=== PATIENT | male | born 1945 | race Caucasian/White ===

== ENCOUNTER → 2023-07-15 08:25 | Outpatient (REF) | payer OTHER, SELFPAY ==
[2023-07-15 10:11] LABS: % Basophils 0.7 % (0-2); % Eosinophils 2.7 % (0-6); % Immature Granulocytes 0.2 % (0-0.5); % Lymphocytes 13.7 % (20.5-51.1); % Monocytes 9.8 % (1.7-9.3); % Neutrophils 72.9 % (42.2-75.2); Absolute Eosinophils 0.2 10^3/uL (0-0.7); Absolute Lymphocytes 0.8 10^3/uL (1.2-3.4); Absolute Monocytes 0.6 10^3/uL (0.1-0.6); Absolute Neutrophils 4.3 10^3/uL (1.4-6.5); Hemoglobin 13.5 g/dL (13.0-18.0); Mean Corp Hgb Conc. 33.8 g/dL (33.0-37.0); Mean Corpuscular Hgb 31.8 pg (27.0-31.0); Mean Corpuscular Volume 94.1 fL (80.0-94.0); Mean Platelet Volume 10.2 fL (7.4-10.4); Nucleated Red Blood Cells % 0 % (-); Platelet Count 213 10^3/uL (130-400); Red Blood Cell Count 4.25 10^6/uL (4.70-6.10); Red Cell Dist. Width 14.5 % (11.5-14.5); White Blood Cell Count 5.9 10^3/uL (4.8-10.8)
[2023-07-15 10:31] LABS: ALT (SGPT) 20 U/L (0-50); AST (SGOT) 26 U/L (17-59); Albumin 3.7 g/dl (3.5-5.0); Alkaline Phosphatase 79 U/L (38-126); Blood Urea Nitrogen 38 mg/dl (9-20); Calcium 9.4 mg/dl (8.4-10.2); Carbon Dioxide 27 mmol/L (22-30); Chloride 106 mmol/L (98-107); Glucose 110 mg/dl (70-99); HDL Cholesterol 43 mg/dl; LDL Cholesterol, Calculated 52 mg/dl; Potassium 4.5 mmol/L (3.5-5.1); Sodium 138 mmol/L (135-145); Total Bilirubin 0.7 mg/dl (0.2-1.3); Total Cholesterol 110 mg/dl (50-199); Total Protein 5.9 g/dl (6.3-8.2); Triglyceride 77 mg/dl (10-149); Very Low Density Lipoprotein 15 mg/dl (0-30); eGFR 47.36
[2023-07-15 10:36] LABS: Vitamin D, 25-OH*** 71.1 ng/mL (30-80)
[2023-07-15 12:46] LABS: Urine Albumin Trace (Neg - Trace); Urine Bilirubin Negative (Negative); Urine Character Clear (Clear); Urine Color Yellow; Urine Glucose 3+ (Negative); Urine Ketone Negative (Negative); Urine Leukocyte Negative (Negative); Urine Nitrite Negative (Negative); Urine Occult Blood Negative (Negative); Urine Urobilinogen Negative (Neg - 1+)
[2023-07-15 13:42] LABS: Microalbumin, Random Urine 15.7 mg/dl (0.6-1.7); Microalbumin/creatinine Ratio 212.4 mg/g
[2023-07-15 13:58] LABS: Glycohemoglobin (HgbA1c) 6.7 % (4.0-5.6)
== END ==
LOC: OLABPV 08:25
PROVIDERS: ATTENDING PHYSICIAN Internal Medicine Endocrinology, Diabetes & Metabolism; FAMILY PHYSICIAN Internal Medicine Geriatric Medicine
DX: E11.9 Type 2 diabetes mellitus without complications (principal); I10 Essential (primary) hypertension; E78.5 Hyperlipidemia, unspecified; M25.551 Pain in right hip; E55.9 Vitamin D deficiency, unspecified; I48.0 Paroxysmal atrial fibrillation; G47.33 Obstructive sleep apnea (adult) (pediatric); Q24.5 Malformation of coronary vessels; I25.10 Atherosclerotic heart disease of native coronary artery without angina pectoris; N52.9 Male erectile dysfunction, unspecified; C61 Malignant neoplasm of prostate; Z13.89 Encounter for screening for other disorder; E04.1 Nontoxic single thyroid nodule; E11.40 Type 2 diabetes mellitus with diabetic neuropathy, unspecified
CPT/HCPCS: 36415; 80053; 80061; 81003; 82043; 82306; 82570; 83036; 85025

== ENCOUNTER 2023-11-20 16:40 | Observation (INO) | payer OTHER, SELFPAY ==
[2023-11-20] VITALS (9 sets, daily range): BP systolic 103–156; BP diastolic 69–95; BMI 23.5; BMI 22.4
[2023-11-20 13:38] LABS: % Basophils 0.5 % (0-2); % Eosinophils 2.4 % (0-6); % Immature Granulocytes 0.4 % (0-0.5); % Monocytes 8.1 % (1.7-9.3); % Neutrophils 77.6 % (42.2-75.2); Absolute Eosinophils 0.1 10^3/uL (0-0.7); Absolute Lymphocytes 0.6 10^3/uL (1.2-3.4); Absolute Monocytes 0.5 10^3/uL (0.1-0.6); Absolute Neutrophils 4.3 10^3/uL (1.4-6.5); Hemoglobin 11.9 g/dL (13.0-18.0); Mean Corpuscular Hgb 32.2 pg (27.0-31.0); Mean Corpuscular Volume 94.6 fL (80.0-94.0); Mean Platelet Volume 10.3 fL (7.4-10.4); Nucleated Red Blood Cells % 0 % (-); Platelet Count 238 10^3/uL (130-400); Red Cell Dist. Width 14.3 % (11.5-14.5); White Blood Cell Count 5.5 10^3/uL (4.8-10.8)
[2023-11-20] MEDS: DILAUDID 0.5 MG IV (13:44)
[2023-11-20 13:52] LABS: ALT (SGPT) 19 U/L (0-50); AST (SGOT) 25 U/L (17-59); Alkaline Phosphatase 95 U/L (38-126); Blood Urea Nitrogen 32 mg/dl (9-20); Calcium 9.2 mg/dl (8.4-10.2); Carbon Dioxide 27 mmol/L (22-30); Chloride 102 mmol/L (98-107); Estimated Creatinine Clearance 50 ml/min; Glucose 130 mg/dl (70-99); Potassium 4.3 mmol/L (3.5-5.1); Sodium 139 mmol/L (135-145); Total Bilirubin 1.5 mg/dl (0.2-1.3); Total Protein 6.1 g/dl (6.3-8.2); eGFR > 60.00
--- NOTE | 2023-11-20 15:06 | ED.GENMED ---
History of Present Illness
General
Chief Complaint: Musculo-Skeletal Complaint
Time Seen by Provider: 11/20/23 12:17
History of Present Illness
History of Present Illness:
78-year-old male with history of A-fib on Eliquis presents to the emergency department for evaluation of worsening left hip and gluteal pain beginning 1 week ago, states that while walking his dog he was forcefully twisted and felt a sudden pain in
the left hip. He has been able to walk up until the past 48 hours, pain abruptly worsened today. Denies any shortening or deformity of the leg. No abdominal or back pain.
Past History
Past History
ED Past Medical History: Asthma (Bronchitis), HTN, Hypercholesterolemia and NIDDM (last A1c=6.1, FS BSs at home have not been elevated)
ED Past Surgical History: Cholecystectomy and Other
Social History
Tobacco: Former smoker
Alcohol: Occasional
Drug: None
Personal:
Living: with family
Review of Systems
Review of Systems
Allergies reviewed?: Yes
All Other Systems: ROS reviewed and negative except as documented in HPI and ROS
Phy Exam
Physical Exam
Physical Exam:
GEN: Well appearing, NAD, WDWN
HEENT: Oral mucosa moist, no scleral icterus
Cardiac: Regular rate
Lung: No respiratory distress, no tachypnea
MSK: Severe swelling of the left hip extending to the thigh as well as the gluteal region with faint ecchymosis, no obvious bony deformity, no shortening or external rotation
Skin: Good color, no pallor or jaundice, no rashes
Neuro: AO x3, moves all extremities freely
Psych: Calm, cooperative
Course
Orders/Labs/Results
Orders:
Orders
11/20/23 11:55
CR Hip - LT w/wo Pel 2-3 Vw* Urgent
Comment:
Reason For Exam: pain/ deformity
Include a pelvis x-ray?: Yes
11/20/23 12:52
CT Pelvis W/o Iv Contrast Urgent
Comment:
Reason For Exam: non traumatic hip pain
11/20/23 13:31
Complete Blood Count/With Diff Urgent
Comprehensive Metabolic Panel Urgent
11/20/23 13:35
HYDROmorphone [Dilaudid] 0.5 mg IV NOW STA
Abnormal Lab Results
11/20/23
13:31
RBC 3.70 L 10^6/uL
(4.70-6.10)
Hgb 11.9 L g/dL
(13.0-18.0)
Hct 35.0 L %
(39.0-52.0)
MCV 94.6 H fL
(80.0-94.0)
MCH 32.2 H pg
(27.0-31.0)
Absolute Lymphs (auto) 0.6 L 10^3/uL
(1.2-3.4)
Neutrophils % 77.6 H %
(42.2-75.2)
Lymphocytes % 11.0 L %
(20.5-51.1)
BUN 32 H mg/dl
(9-20)
Glucose 130 H mg/dl
(70-99)
Total Bilirubin 1.5 H mg/dl
(0.2-1.3)
Total Protein 6.1 L g/dl
(6.3-8.2)
11/20/23 13:31
11/20/23 13:31
Vital Signs
Initial and Last Documented VS:
Initial Vital Signs
Temp Pulse Resp BP Pulse Ox
97.7 F 75 15 152/95 97
11/20/23 11:49 11/20/23 11:49 11/20/23 11:49 11/20/23 11:49 11/20/23 11:49
Last Documented Vital Signs
Temp Pulse Resp BP Pulse Ox
97.7 F 84 11 125/70 94
11/20/23 11:49 11/20/23 12:32 11/20/23 12:32 11/20/23 14:05 11/20/23 14:45
MDM/Problems Addressed
MDM/Problems Addressed:
Large intramuscular hematoma likely from a soft tissue/muscular injury, patient does have a slight decline in his hemoglobin however have a low clinical suspicion for avascular injury given that the injury occurred 1 week ago his hemoglobin decline
was only about 2 g. Patient's pain is too severe and he is not able to ambulate, will admit to the hospital service for further management
I did discuss the incidental findings of mottling of the osseus structures with the patient. Remote hx of prostate CA, may represent mets however given time frame from prior CA treatments, not likely related. Could certainly be malignant. Pt made
aware that this will require further follow up, not necessarily on an inpatient basis
*Critical Care Note
Total Time (30-74mins, 75-104mins- exclusive of procedures): Not Applicable
ED Attending Note
-
Portions of this chart may have been created with voice recognition software.� Occasional wrong word or��sound alike� substitutions may have occurred due to the inherent limitations of voice recognition software.
Discharge Plan
Departure
Patient Disposition: Admit
Date of Disposition: 11/20/23
Time of Disposition: 15:10
Admit to: Med/Surg
Presentation/result/management discussed w/ accepting MD/DO: Hospitalist
Discharge Problem:
Intramuscular hematoma, Ambulatory dysfunction
Prescriptions:
No Action
pioglitazone 30 MG tablet
30 mg PO DAILY
cholecalciferol (vitamin D3) 1,000 UNITS tablet
1,000 units PO TID
Invokana 100 MG tablet
100 mg PO DAILY
magnesium oxide 400 MG tablet
400 mg PO DAILY
valsartan 80 MG tablet
160 mg PO BID
ferrous gluconate 240 MG tablet
324 mg PO TID
Januvia 100 MG tablet
100 mg PO QPM
Eliquis 5 MG tablet
5 mg PO BID
coQ10 (ubiquinol) 100 mg Capsule
100 mg PO DAILY Qty: 0
triamterene-hydrochlorothiazid 37.5-25 mg Tablet
1 tab PO DAILY
multivitamin Tablet
1 tab PO DAILY
atorvastatin 40 mg Tablet
40 mg PO HS
alpha lipoic acid 600 mg Tablet
600 mg PO DAILY
metformin 1,000 MG tablet
1,000 mg PO BID
amlodipine 5 mg Tablet
5 mg PO DAILY Qty: 90 5RF
metoprolol succinate [Toprol XL] 25 mg tablet extended release 24 hr
12.5 mg PO BID
cyanocobalamin (vitamin B-12) 1,000 mcg Tablet
1,000 mcg PO DAILY
Referrals:
Gerry Holman MD [Family Provider] -
Interventions
Interventions:
*Risk Screen - Suicide Last Done: 11/20/23 11:49
*General Assessment Last Done: 11/20/23 11:49
*Neglect/Abuse Screening Last Done: 11/20/23 11:49
ED- Fall Risk Assessment Last Done: 11/20/23 13:50
*ED COVID-19 Vaccine History Last Done: 11/20/23 11:49
ED-Musculoskeletal Assessment Last Done: 11/20/23 13:50
Discharge Date and Time
Print Language: GERMAN
--- NOTE | 2023-11-20 15:52 | HPS.HSE ---
Family Physician
-
Family Physician: Gerry Holman
Chief Complaint
-
inability to walk
History of Present Illness
78-year-old man with history of A-fib (on Eliquis) presents with worsening left hip and gluteal pain beginning 1 week ago. He was walking his dog and was forcefully twisted, and felt a sudden pain in the left hip. He has been able to walk up until
the past 2 days, and the pain abruptly worsened today. He Denies any shortening or deformity of the leg. No abdominal or back pain. No SOB. Distant h/o prostate CA. CT of leg showed:
1. No acute fracture or dislocation.
2. Large intramuscular hematoma in the left lateral hip and anterolateral upper left thigh. Recommend imaging follow-up to confirm resolution as an underlying mass would be difficult to exclude.
3. Mottled appearance of the imaged osseous structures raising suspicion for myeloma versus small lytic metastases.
He was told by ER staff and by myself of bone abnormality described above. He voiced understanding of this and stated he would follow up with his PCP. He was otherwise comfortable at the time of my exam.
Medical History
Past Medical History
Past Medical History: Reports Other
Additional Past Medical History:
Asthma (Bronchitis),
essential HTN,
Hypercholesterolemia
NIDDM (last A1c=6.1, FS BSs at home have not been elevated)
Cholecystectomy
malignant neoplasm of prostate
Left leg weakness
half-way (current) use of anticoagulants
Erectile dysfunction
Stress incontinence of urine
Coronary artery disease
Coronary-myocardial bridge
Paroxysmal atrial fibrillation
Vitamin D deficiency
Stage 1 chronic kidney disease
Unintentional weight loss
Thyroid nodule
Past Surgical History: Reports Other
Additional Past Surgical History:
See above
Social History
Tobacco: Former Smoker
Alcohol: None
Drug: None
Personal:
Living: With Family
Family History
Family History: Not pertinent
Allergies / Home Medications
Allergies reflects when Allergies were last updated in [facility].
Home Medications with original date entered in [facility]
Allergy/Medication List:
Allergies
Allergy/AdvReac Type Severity Reaction Status Date / Time
pollen extracts Allergy hayfever Verified 11/20/22 13:37
Home Medications
canagliflozin 100 mg tablet (Invokana) 100 mg PO DAILY 05/10/16
cholecalciferol (vitamin D3) 25 mcg (1,000 unit) tablet 1,000 units PO TID 05/10/16
pioglitazone 30 mg tablet 30 mg PO DAILY 05/10/16
magnesium oxide 400 mg (241.3 mg magnesium) tablet 400 mg PO DAILY 01/11/18
apixaban 5 mg tablet (Eliquis) 5 mg PO BID 11/22/19
ferrous gluconate 240 mg (27 mg iron) tablet 324 mg PO TID 11/22/19
sitagliptin phosphate 100 mg tablet (Januvia) 100 mg PO QPM 11/22/19
valsartan 80 mg tablet 160 mg PO BID 11/22/19
coQ10 (ubiquinol) 100 mg capsule 100 mg PO DAILY ##0 11/03/22
multivitamin 1 tab PO DAILY 11/10/22
triamterene 37.5 mg-hydrochlorothiazide 25 mg tablet 1 tab PO DAILY 11/10/22
alpha lipoic acid 600 mg tablet 600 mg PO DAILY 11/18/22
amlodipine 5 mg tablet 5 mg PO DAILY #90 tabs 11/18/22
atorvastatin 40 mg tablet 40 mg PO HS 11/18/22
metformin 1,000 mg tablet 1,000 mg PO BID 11/18/22
cyanocobalamin (vitamin B-12) 1,000 mcg tablet 1,000 mcg PO DAILY 11/20/23
metoprolol succinate 25 mg tablet,extended release 24 hr (Toprol XL) 12.5 mg PO BID 11/20/23
Review of Systems
-
History Source: Patient
A 12 point ROS was completed and negative except as noted: Yes
Physical Exam
Vital Signs
Vital Signs
Temp Pulse Resp BP Pulse Ox
97.7 F 84 11 125/70 94
11/20/23 11:49 11/20/23 12:32 11/20/23 12:32 11/20/23 14:05 11/20/23 14:45
Physical Exam
General: Well Developed, Well Nourished, No Apparent Distress, Comfortable and Conversant
HEENT: NormoCephalic, Moist mucous membranes, No Ptosis, Nose Appears Normal and Ears Appear Normal; No Good Dentition
Respiratory: Clear
Cardiac: S1/S2 and Regular Rhythm
GI: Soft, Non Tender and Non Distended
Musculoskeletal: No Clubbing, No Cyanosis, Edema, Left Lower Extremity and Edema, Right Lower Extremity
Skin: Warm and Dry
Neuro: Awake, Alert, Oriented and AO x 3
Psych: Calm
Laboratory Results
-
11/20/23 13:31
11/20/23 13:31
Laboratory Results
Total Bilirubin 1.5 mg/dl (0.2-1.3) H 11/20/23 13:31
AST 25 U/L (17-59) 11/20/23 13:31
ALT 19 U/L (0-50) 11/20/23 13:31
Alkaline Phosphatase 95 U/L (38-126) 11/20/23 13:31
Data Reviewed
-
Lab Data: Labs Reviewed by me
Impression/Plan
-
IMPRESSION:
78 man with hematoma on thigh, unable to walk, unable to do ADL. CT shows concerning imaging that could be cancer.
PLAN:
1. Hematoma on leg - needs outpatient follow up. At this time no signs of infection or vascular pressure affecting blood supply to leg.
Outpt ortho
H/H stable. Check H/H tomorrow
Rehab placement
2. Abnormal bone on CT, h/o cancer in the past, h/o unwanted weight loss
Important follow up for PCP
3. otherwise numerous PMH - continue usual home meds.
Renal function is at baseline
Code: full
VCD for DVTp
[2023-11-20 19:31] LABS: Glucose - Point of Care 123 mg/dl (70-99)
[2023-11-20] MEDS: JANUVIA 100 MG PO (19:51)
[2023-11-20] MEDS: DIOVAN 160 MG PO (19:51)
[2023-11-20] MEDS: GLUCOPHAGE 1000 MG PO (19:51)
[2023-11-20] MEDS: TOPROL XL 12.5 MG PO (19:52)
[2023-11-20] MEDS: LIPITOR 40 MG PO (21:44)
[2023-11-20] MEDS: VITAMIN D3 (cholecalciferol) 25 MCG PO (21:44)
[2023-11-20] MEDS: FEOSOL 325 MG PO (21:44)
[2023-11-21 07:35] VITALS: BP 127/71
[2023-11-21 08:25] LABS: Hematocrit 29.7 % (39.0-52.0); Hemoglobin 9.9 g/dL (13.0-18.0); Mean Corp Hgb Conc. 33.3 g/dL (33.0-37.0); Mean Corpuscular Hgb 31.9 pg (27.0-31.0); Mean Corpuscular Volume 95.8 fL (80.0-94.0); Mean Platelet Volume 10.2 fL (7.4-10.4); Platelet Count 230 10^3/uL (130-400); Red Cell Dist. Width 14.3 % (11.5-14.5); White Blood Cell Count 6.1 10^3/uL (4.8-10.8)
[2023-11-21] MEDS: JARDIANCE 10 MG PO (08:47)
[2023-11-21] MEDS: FEOSOL 325 MG PO ×3 (08:47→20:57)
[2023-11-21] MEDS: ACTOS 30 MG PO (08:48)
[2023-11-21] MEDS: TOPROL XL 12.5 MG PO ×2 (08:48→20:56)
[2023-11-21] MEDS: MAGNESIUM OXIDE 500 MG PO (08:48)
[2023-11-21] MEDS: THERAGRAN 1 TABLET PO (08:49)
[2023-11-21] MEDS: NORVASC 5 MG PO (08:49)
[2023-11-21] MEDS: VITAMIN D3 (cholecalciferol) 25 MCG PO ×3 (08:49→20:57)
[2023-11-21] MEDS: DYAZIDE 1 CAPSULE PO (08:49)
[2023-11-21] MEDS: DIOVAN 160 MG PO ×2 (08:50→20:56)
[2023-11-21] MEDS: FLUSH (NSS) 1 FLUSH IV (08:50)
[2023-11-21] MEDS: VITAMIN B-12 1000 MCG PO (08:50)
[2023-11-21] MEDS: GLUCOPHAGE 1000 MG PO ×2 (08:50→16:37)
[2023-11-21 08:52] LABS: Blood Urea Nitrogen 32 mg/dl (9-20); Calcium 9.1 mg/dl (8.4-10.2); Carbon Dioxide 27 mmol/L (22-30); Chloride 103 mmol/L (98-107); Estimated Creatinine Clearance 49 ml/min; Glucose 121 mg/dl (70-99); Potassium 4.1 mmol/L (3.5-5.1); Sodium 137 mmol/L (135-145); eGFR > 60.00
--- NOTE | 2023-11-21 10:10 | W.PN.HOSP.TC ---
Today's Communication/Plan
-
see plan
Assessment / Plan
Assessment / Plan
78-year-old man with history of A-fib (on Eliquis) presents with worsening left hip and gluteal pain beginning 1 week ago. He was walking his dog and was forcefully twisted, and felt a sudden pain in the left hip. He has been able to walk up until
the past 2 days, and the pain abruptly worsened today.
Hip X-Ray
IMPRESSION:
No acute fracture or dislocation.
Pelvis CT
IMPRESSION:
1. No acute fracture or dislocation.
2. Large intramuscular hematoma in the left lateral hip and anterolateral upper left thigh. Recommend imaging follow-up to confirm resolution as an underlying mass would be difficult to exclude.
3. Mottled appearance of the imaged osseous structures raising suspicion for myeloma versus small lytic metastases.
Left Thigh Intramuscular Hematoma
Acute blood Loss Anemia
-hold PIANO REFINISHER Eliquis
-improvement this AM
-scheduled neurovascular checks
-PT/OT
-will discuss case with ortho
Abnormal Imaging of bone raising suspicion for myeloma versus small lytic meta
-will discuss case with Oncology
Essential Hypertension
-PIANO REFINISHER amlodipine
-PIANO REFINISHER Metoprolol
-PIANO REFINISHER Triamterene/HCTZ
Hyperlipidemia
-PIANO REFINISHER Lipitor
GERD
Prostate CA 2006 s/p robotic prostatectomy
DM
-PIANO REFINISHER Invokana, Januvia, Metformin, Pioglitazone
Multinoduler goiter s/p partial thyroidectomy
Gout
Remote hx tobacco Use
DVT PPx SCD
FULL CODE
Anticipated Discharge: 24 - 48 hours
Subjective/Interval History
-
Date of Service: November 21, 2023
patient with improved pain left thigh and improved mobility
denies chest pain or shortness of breath
Objective Data
-
Labs:
Laboratory Results
11/21/23
07:36
WBC 6.1
Hgb 9.9 L
Hct 29.7 L
Plt Count 230
Sodium 137
Potassium 4.1
Chloride 103
Carbon Dioxide 27
BUN 32 H
Creatinine 1.2
Glucose 121 H
Calcium 9.1
Vital Signs:
Vital Signs
Temp Pulse Resp BP Pulse Ox
98.0 F 60 18 127/71 95
11/21/23 07:35 11/21/23 08:50 11/21/23 07:35 11/21/23 08:50 11/21/23 08:43
I&O
11/20/23 11/21/23 11/22/23
06:59 06:59 06:59
Intake Total 480 / 480
Output Total 200 / 200
Balance 280 / 280
Review of Systems
-
History Source: Patient
All other systems: Reviewed and negative
Physical Exam
-
General: No Apparent Distress
HEENT: PERRLA
Respiratory: Clear to Auscultation; Negative Wheezes
Cardiac: Regular Rhythm and S1/S2
GI: Soft and Nontender
Musculoskeletal: Other (left thigh edema, no significant tenderness; skin appears normal but swollen; DP/PT pulse 2+)
Neuro: AO x 3
Psych: Calm
Data Reviewed
-
Diagnostic Radiology: Report Reviewed by me
Labs: Labs Reviewed by me
[2023-11-21 11:47] LABS: Glucose - Point of Care 177 mg/dl (70-99)
[2023-11-21 13:08] LABS: PSA, Total - Screen < 0.06 ng/ml (0.0-4.0)
[2023-11-21 13:11] VITALS: BP 117/80; PULSE 66; O2SAT 98
[2023-11-21 14:10] VITALS: BP 117/80; O2SAT 99
[2023-11-21 15:26] VITALS: BP 115/69
--- NOTE | 2023-11-21 16:05 | PTCARENOTE ---
Pt AAO x3, HUBBARD well, ambulatory in room/jarvis with walker/minimal assistance; states Lt leg 'feels pretty good today'; no c/o weakness/numbness LLE. Circ/neuro check to LLE WNL; bruised areas Lt posterior thigh without increase in size. VSS. On
room air- pulse ox 92%, no c/o SOB. Abd soft, rounded, marino PO well. Voids mod amts clear lt dorita urine in urinal. Resting in bed at present, no c/o. Will continue to monitor.
[2023-11-21 16:09] LABS: Hemoglobin 10.6 g/dL (13.0-18.0)
--- NOTE | 2023-11-21 16:27 | PTCARENOTE ---
[facility] result @ 1530 - 10.9; result TT to Dr. Bernal.
[2023-11-21] MEDS: JANUVIA 100 MG PO (16:37)
[2023-11-21] MEDS: LIPITOR 40 MG PO (20:57)
[2023-11-21 23:15] VITALS: BP 113/64
[2023-11-22 07:02] VITALS: BP 124/74
[2023-11-22 07:22] LABS: Hematocrit 28.4 % (39.0-52.0); Hemoglobin 9.8 g/dL (13.0-18.0); Mean Corp Hgb Conc. 34.5 g/dL (33.0-37.0); Mean Corpuscular Hgb 33.1 pg (27.0-31.0); Mean Corpuscular Volume 95.9 fL (80.0-94.0); Mean Platelet Volume 9.9 fL (7.4-10.4); Platelet Count 211 10^3/uL (130-400); Red Blood Cell Count 2.96 10^6/uL (4.70-6.10); Red Cell Dist. Width 14.4 % (11.5-14.5); White Blood Cell Count 5.7 10^3/uL (4.8-10.8)
[2023-11-22 08:08] LABS: Blood Urea Nitrogen 31 mg/dl (9-20); Calcium 9.1 mg/dl (8.4-10.2); Carbon Dioxide 25 mmol/L (22-30); Chloride 105 mmol/L (98-107); Estimated Creatinine Clearance 45 ml/min; Glucose 121 mg/dl (70-99); Potassium 3.8 mmol/L (3.5-5.1); Sodium 137 mmol/L (135-145); eGFR 55.88
[2023-11-22] MEDS: DYAZIDE 1 CAPSULE PO (09:16)
[2023-11-22] MEDS: NORVASC 5 MG PO (09:16)
[2023-11-22] MEDS: TOPROL XL 12.5 MG PO (09:16)
[2023-11-22] MEDS: MAGNESIUM OXIDE 500 MG PO (09:16)
[2023-11-22] MEDS: DIOVAN 160 MG PO (09:16)
[2023-11-22] MEDS: VITAMIN D3 (cholecalciferol) 25 MCG PO (09:17)
[2023-11-22] MEDS: ACTOS 30 MG PO (09:17)
[2023-11-22] MEDS: GLUCOPHAGE 1000 MG PO (09:17)
[2023-11-22] MEDS: JARDIANCE 10 MG PO (09:17)
[2023-11-22] MEDS: VITAMIN B-12 1000 MCG PO (09:17)
[2023-11-22] MEDS: THERAGRAN 1 TABLET PO (09:17)
[2023-11-22] MEDS: FEOSOL 325 MG PO (09:17)
[2023-11-22] MEDS: TYLENOL 650 MG PO (09:28)
--- NOTE | 2023-11-22 11:11 | W.PN.HOSP.TC ---
Today's Communication/Plan
-
OK for DC today
Assessment / Plan
Assessment / Plan
78-year-old man with history of A-fib (on Eliquis) presents with worsening left hip and gluteal pain beginning 1 week ago. He was walking his dog and was forcefully twisted, and felt a sudden pain in the left hip. He has been able to walk up until
the past 2 days, and the pain abruptly worsened today.
Hip X-Ray
IMPRESSION:
No acute fracture or dislocation.
Pelvis CT
IMPRESSION:
1. No acute fracture or dislocation.
2. Large intramuscular hematoma in the left lateral hip and anterolateral upper left thigh. Recommend imaging follow-up to confirm resolution as an underlying mass would be difficult to exclude.
3. Mottled appearance of the imaged osseous structures raising suspicion for myeloma versus small lytic metastases.
Left Thigh Intramuscular Hematoma
Acute blood Loss Anemia
-scheduled neurovascular checks OK
-PT/OT
-case discussed with ortho, no need for surgical intervention
-Eliquis has been held - discussed with patients risks versus benefits regarding length of time holding this drug. given size of hematoma will likely to hold for at least 4 days - patient can resume evening of 11/24/23.
Abnormal Imaging of bone raising suspicion for myeloma versus small lytic mets
-case discussed with Oncology and PSA ordered (< 0.06) SPEP and free light chains pending
Essential Hypertension
-MIS SPECIALIST amlodipine
-MIS SPECIALIST Metoprolol
-MIS SPECIALIST Triamterene/HCTZ
Hyperlipidemia
-MIS SPECIALIST Lipitor
GERD
Prostate CA 2006 s/p robotic prostatectomy
DM
-MIS SPECIALIST Invokana, Januvia, Metformin, Pioglitazone
Multinoduler goiter s/p partial thyroidectomy
Gout
Remote hx tobacco Use
DVT PPx SCD
FULL CODE
Anticipated Discharge: Today
Subjective/Interval History
-
Date of Service: November 22, 2023
continues with some soreness left thigh; able to move it
feels ready to go home
no chest pain or shortness of breath
Objective Data
-
Labs:
Laboratory Results
11/22/23
06:58
WBC 5.7
Hgb 9.8 L
Hct 28.4 L
Plt Count 211
Sodium 137
Potassium 3.8
Chloride 105
Carbon Dioxide 25
BUN 31 H
Creatinine 1.3
Glucose 121 H
Calcium 9.1
Vital Signs:
Vital Signs
Temp Pulse Resp BP Pulse Ox
98 F 52 18 124/74 95
11/22/23 07:02 11/22/23 07:02 11/22/23 07:02 11/22/23 07:02 11/22/23 07:02
I&O
11/21/23 11/22/23 11/23/23
06:59 06:59 06:59
Intake Total 480 / 480 1160 / 1160
Output Total 200 / 200 1250 / 1250
Balance 280 / 280 -90 / -90
Review of Systems
-
History Source: Patient
All other systems: Reviewed and negative
Physical Exam
-
General: No Apparent Distress
HEENT: PERRLA
Respiratory: Clear to Auscultation; Negative Wheezes
Cardiac: Regular Rhythm and S1/S2
GI: Soft and Nontender
Musculoskeletal: Other (left thigh edema, no significant tenderness; skin appears normal but swollen; DP/PT pulse 2+)
Neuro: AO x 3
Psych: Calm
Data Reviewed
-
Diagnostic Radiology: Report Reviewed by me
Labs: Labs Reviewed by me
--- NOTE | 2023-11-22 11:33 | W.DS.TRANS ---
DC Summary - [employer]
-
Discharge Instructions:
Discharge Diagnosis/Procedures left thigh hematoma
Diet Regular
Activity As tolerated
Driving Restrictions do not drive after taking [place]
Bathing Restrictions None
Blood Work Hemoglobin on Monday 11/27
Other Services VN,PT
Instructions:
Stand-Alone Forms:
Changes to Home Medications: Yes
Discharge Medications:
DC Medications w/original date entered in [facility]
canagliflozin 100 mg tablet (Invokana) 100 mg PO DAILY 05/10/16
cholecalciferol (vitamin D3) 25 mcg (1,000 unit) tablet 1,000 units PO TID Supplement 05/10/16
pioglitazone 30 mg tablet 30 mg PO DAILY Diabetes 05/10/16
magnesium oxide 400 mg (241.3 mg magnesium) tablet 400 mg PO DAILY Constipation 01/11/18
apixaban 5 mg tablet (Eliquis) 5 mg PO BID Blood Clot Prevention/Tx 11/22/19
ferrous gluconate 240 mg (27 mg iron) tablet 324 mg PO TID Supplement 11/22/19
sitagliptin phosphate 100 mg tablet (Januvia) 100 mg PO QPM Diabetes 11/22/19
valsartan 80 mg tablet 160 mg PO BID Blood Pressure 11/22/19
coQ10 (ubiquinol) 100 mg capsule 100 mg PO DAILY Supplement ##0 11/03/22
multivitamin 1 tab PO DAILY Supplement 11/10/22
triamterene 37.5 mg-hydrochlorothiazide 25 mg tablet 1 tab PO DAILY Blood Pressure 11/10/22
alpha lipoic acid 600 mg tablet 600 mg PO DAILY Supplement 11/18/22
amlodipine 5 mg tablet 5 mg PO DAILY #90 tabs 11/18/22
atorvastatin 40 mg tablet 40 mg PO HS High Cholesterol 11/18/22
metformin 1,000 mg tablet 1,000 mg PO BID Diabetes 11/18/22
cyanocobalamin (vitamin B-12) 1,000 mcg tablet 1,000 mcg PO DAILY Supplement 11/20/23
metoprolol succinate 25 mg tablet,extended release 24 hr (Toprol XL) 12.5 mg PO BID Heart Disease/Condition 11/20/23
hydrocodone 5 mg-acetaminophen 325 mg tablet 1 tab PO Q8H PRN severe pain #10 tabs 11/22/23
Home Medication Changes
addition of norco PRN
Pending Results: Yes (SPEP free light chains)
--- NOTE | 2023-11-22 14:44 | W.DCSUMMARY ---
Discharge Summary
Discharge Data
Date of Admission: 11/20/23
Date of Discharge: 11/22/23
-
Pending Results: Yes
Additional Pending Results:
SPEP, free light chains
Hospital Course
Discharging Physician : Dr. Esha Bernal
Disposition : Home
Primary care physician : Dr. Gerry Holman
Principal Discharge diagnosis : Left thigh hematoma
Hospital Course :
Mr. Edmundo Mac is a 78 yo man with hx A-fib (on Eliquis) presents with worsening left hip and gluteal pain beginning 1 week ago. He was walking his dog and was forcefully twisted, and felt a sudden pain in the left hip. He had been able to
walk up until the past 2 days, and the pain then abruptly worsened bringing him to the ER. Triage vitals stable. Labs with Hg 11.9. Pelvis CT without acute fracture, large IM hematoma.
Patient was admitted to medicine, ACTUARY MANAGER Eliquis held. His pain and range of motion improved overnight and Hg remained stable between 9-10. He worked with PT and home health is arranged. Patient is told to hold Eliquis for an additional 2 days to
allow for continued healing of hematoma. He will follow up closely with his PCP.
Regarding, abnl bone appearance on CT, this was discussed briefly with Hematology. While in-house PSA tested (<0.06), and SPEP and light chains sent (pending at time of discharge). Patient aware of potential diagnoses and need to have close
outpatient follow up.
Time spent on discharge was 40 minutes.
Important imaging findings :
CT PELVIS
IMPRESSION:
1. No acute fracture or dislocation.
2. Large intramuscular hematoma in the left lateral hip and anterolateral upper left thigh. Recommend imaging follow-up to confirm resolution as an underlying mass would be difficult to exclude.
3. Mottled appearance of the imaged osseous structures raising suspicion for myeloma versus small lytic metastases.
Procedure findings :
Discharge Plan
-
Patient Disposition: Home (Routine Discharge)
Discharge Diagnosis/Procedures: left thigh hematoma
Diet: Regular
Activity: As tolerated
Driving Restrictions: do not drive after taking [place]
Bathing Restrictions: None
Blood Work: Hemoglobin on Monday 11/27
Other Services: VN and PT
Activity Restrictions/Additional Instructions:
Please follow up with Dr. Holman within the next week. You will need to discuss further work-up for abnormal imaging of bone. Work-up has been started in the hospital including PSA testing (< 0.06). SPEP and Free Light chain studies are pending
(these are ordered to rule out a type of blood cancer).
Referrals:
Gerry Holman MD [Family Provider] - in less than 1 week
Additional Discharge Medication Instructions: Please hold Eliquis an additional 2 days. Ok to resume evening of 11/24/23.
Return to ER if any increased swelling or pain in thigh.
continue to ice thigh to help with swelling and pain
Prescriptions:
New
hydrocodone-acetaminophen 5-325 mg tablet
1 tab PO Q8H PRN (Reason: severe pain) Qty: 10 0RF
Continued
pioglitazone 30 MG tablet
30 mg PO DAILY
cholecalciferol (vitamin D3) 1,000 UNITS tablet
1,000 units PO TID
Invokana 100 MG tablet
100 mg PO DAILY
magnesium oxide 400 MG tablet
400 mg PO DAILY
valsartan 80 MG tablet
160 mg PO BID
ferrous gluconate 240 MG tablet
324 mg PO TID
Januvia 100 MG tablet
100 mg PO QPM
coQ10 (ubiquinol) 100 mg Capsule
100 mg PO DAILY Qty: 0
triamterene-hydrochlorothiazid 37.5-25 mg Tablet
1 tab PO DAILY
multivitamin Tablet
1 tab PO DAILY
atorvastatin 40 mg Tablet
40 mg PO HS
alpha lipoic acid 600 mg Tablet
600 mg PO DAILY
metformin 1,000 MG tablet
1,000 mg PO BID
amlodipine 5 mg Tablet
5 mg PO DAILY Qty: 90 5RF
metoprolol succinate [Toprol XL] 25 mg tablet extended release 24 hr
12.5 mg PO BID
cyanocobalamin (vitamin B-12) 1,000 mcg Tablet
1,000 mcg PO DAILY
Held
Eliquis 5 MG tablet
5 mg PO BID
Hold Instructions: Resume on 11/24/23.
Discharge Orders:
Discharge Patient (As Directed); Ordered 11/22/23
Ordered By: Esha Bernal
Discharge Date and Time
Print Language: UKRAINIAN
[2023-11-22 15:16] VITALS: BP 111/72
--- NOTE | 2023-11-22 15:35 | CM ---
Reviewed chart, spoke with RN, patient is medically cleared for discharge. Met with patient who stated that he did not have a ride home to the [facility]. Placed a call to [facility] and upon explanation that patient needs ride back to home,
call was transferred to transportation. Spoke with a inbound customer service representative named, Rito who stated that he can have someone pick patient up at 16:00. Patient updated. RN updated as well as [employer] dip unit operator. Patient had consult for VN. Updated liason.
Plan: Case management will continue to follow and assist with discharge planning. Home.
--- NOTE | 2023-11-22 16:05 | VNURNOTE ---
Chart reviewed, spoke with patient. I reviewed [facility] services, frequency of visits and homebound status. Patient has a dog and cat, pet policy reviewed. The patient is mostly interested in PT. He is agreeable to 1 or 2 home nursing visits.
Referral placed in [facility].
[2023-11-25 05:41] LABS: Alpha 1 Globulin 0.37 g/dL (0.19-0.46); Alpha 2 Globulin 0.68 g/dL (0.48-1.05); Free Kappa Light Chains,Quant 30.91 mg/L (3.30-19.40); IgA 233 mg/dL (68-408); IgG 512 mg/dL (768-1632); IgM 22 mg/dL (35-263); Immunofixation Electrophoresis IFE Done; Kappa/Lambda Fr Light Ratio 0.93 (0.26-1.65); Total Protein-Electrophoresis 5.9 g/dL (6.3-8.2)
== END 2023-11-22 16:17 | disposition home or self-care (01) ==
LOC: 4 EAST ACU 16:40
PROVIDERS: Physician Assistant; ADMITTING PHYSICIAN Internal Medicine; ATTENDING PHYSICIAN Student in an Organized Health Care Education/Training Program; EMERGENCY PHYSICIAN Emergency Medicine; FAMILY PHYSICIAN Internal Medicine Geriatric Medicine
DX: S70.12XA Contusion of left thigh, initial encounter (principal); S70.02XA Contusion of left hip, initial encounter; M25.552 Pain in left hip; X50.0XXA Overexertion from strenuous movement or load, initial encounter; Y93.K1 Activity, walking an animal; Y92.9 Unspecified place or not applicable; R26.2 Difficulty in walking, not elsewhere classified; E04.1 Nontoxic single thyroid nodule; E55.9 Vitamin D deficiency, unspecified; N39.3 Stress incontinence (female) (male); D62 Acute posthemorrhagic anemia; I25.10 Atherosclerotic heart disease of native coronary artery without angina pectoris; I48.0 Paroxysmal atrial fibrillation; I12.9 Hypertensive chronic kidney disease with stage 1 through stage 4 chronic kidney disease, or unspecified chronic kidney disease; J45.909 Unspecified asthma, uncomplicated; E78.5 Hyperlipidemia, unspecified; K21.9 Gastro-esophageal reflux disease without esophagitis; M10.9 Gout, unspecified; E78.00 Pure hypercholesterolemia, unspecified; E11.22 Type 2 diabetes mellitus with diabetic chronic kidney disease; Z79.84 Long term (current) use of oral hypoglycemic drugs; Z85.46 Personal history of malignant neoplasm of prostate; Z79.01 Long term (current) use of anticoagulants; Z87.891 Personal history of nicotine dependence; Z90.49 Acquired absence of other specified parts of digestive tract
CPT/HCPCS: 72192; 73502; 80048; 80053; 82784; 82962; 83521; 83735; 84155; 84165; 85018; 85025; 85027; 86334; 93005; 96374; 97162; 97166; 99285; G0103; G0378

== ENCOUNTER 2023-11-29 14:16 | Observation (INO) | payer OTHER, SELFPAY ==
[2023-11-28 18:33] VITALS: BP 147/83; BMI 23.5
[2023-11-28 18:34] VITALS: BP 147/83
[2023-11-28 19:00] VITALS: BP 128/84
[2023-11-28 20:00] VITALS: BP 129/80
--- NOTE | 2023-11-28 20:32 | ED.GENMED ---
Addendum entered and electronically signed by Johnathon Mane DO 11/29/23 10:16:
On exam patient appears comfortable sitting upright eating lunch watching TV states he feels better after some Percocet
Addendum entered and electronically signed by Johnathon Mane DO 11/29/23 10:06:
Update, 6a-2p-ER attending, chart reviewed reviewed with physical therapist and manager case management patient will need placement there is a bed at [facility] will need [facility] therapy evaluation prior to that.
In the meantime we will give him his daily meds and some analgesics
Original Note:
History of Present Illness
General
Chief Complaint: Musculo-Skeletal Complaint
Source: patient
Time Seen by Provider: 11/28/23 20:22
History of Present Illness
History of Present Illness:
78-year-old male presents emergency room complaining of pain in his left lateral thigh. Patient was hospitalized here at [facility] for a left thigh hematoma about 1 week ago. He was discharged on hydrocodone. He states that the hydrocodone
helped the pain some but he now has run out of it. The pain is worse with walking. No new injuries. No chest pain or shortness of breath. Patient does take oral anticoagulation which was held for a period of time after the injury.
Past History
Past History
ED Past Medical History: Asthma (Bronchitis), HTN, Hypercholesterolemia and NIDDM (last A1c=6.1, FS BSs at home have not been elevated)
ED Past Surgical History: Cholecystectomy and Other
Social History
Tobacco: Former smoker
Alcohol: Occasional
Drug: None
Personal:
Living: with family
Phy Exam
Physical Exam
Physical Exam:
General: Awake, Alert, Oriented X3. No acute distress.
Vitals: unremarkable
Head: Atraumatic
Eyes: Pupils equal, EOMI
Throat: Airway intact, no exudates
Neck: Trachea midline
Lungs: Clear and equal b/l
Heart: Regular rate, no murmurs
Abd: Soft, Nontender, No pulsatile mass
Neuro: Nonfocal
Skin: Warm, dry, no rash
Extremities: Fullness left lateral thigh consistent with his known thigh hematoma. Mild edema lower left leg. Pulses intact bilaterally. Good capillary refill bilaterally.
Course
Orders/Labs/Results
Orders:
Orders
11/28/23 20:32
US Periph Venous LOWER Ext LT Urgent
Comment:
Reason For Exam: increasing pain
11/28/23 20:33
Acetaminophen [Tylenol] 1,000 mg PO NOW STA
Lidocaine [Lidocaine 4% Patch] 1 patch TOPICAL NOW STA
Apply Lidocaine patch(s) to:: left thigh
11/28/23 23:01
Case Management Consult ONCE
Case Management Consult: Discharge Planning
Tramadol HCl [Ultram] 50 mg PO NOW STA
Physical Therapy Consult [Pt Eval And Treat] Urgent
Activity Level: As Tolerated
11/28/23 23:30
Apixaban [Eliquis] 5 mg PO NOW STA
Atorvastatin [Lipitor] 40 mg PO NOW STA
Metoprolol Xl [Toprol Xl] 12.5 mg PO NOW STA
Valsartan [Diovan] 160 mg PO NOW STA
Vital Signs
Initial and Last Documented VS:
Initial Vital Signs
Temp Pulse Resp BP Pulse Ox
98.8 F 74 18 147/83 95
11/28/23 18:33 11/28/23 18:33 11/28/23 18:33 11/28/23 18:33 11/28/23 18:33
Last Documented Vital Signs
Temp Pulse Resp BP Pulse Ox
98.8 F 66 18 128/75 94
11/28/23 18:33 11/28/23 23:47 11/28/23 18:33 11/28/23 23:47 11/28/23 23:45
MDM/Problems Addressed
Differential Diagnosis Includes:
dvt, persistent pain from recent hematoma, infection of hematoma.
MDM/Problems Addressed:
DVT study negative. Pt states he cannot get around at home with this pain. I don't believe there is an acute infection as pt is afebrile, has normal WBC and overlying area not erythematous. Pt wants to make it clear he is not hear for narcotics
but wants something done to alleviate the pain which he equates to a kidney stone. I explained that we, by policy, will not refill prescriptions for an established problem which this is. Pt's primary saw him today and also felt that continued
narcotics were not indicated. He was offered tramadol. I will give pt a dose of tramadol here. If he is not able to go home we will have case managment eval pt for SNF placement in the morning.
*Critical Care Note
Total Time (30-74mins, 75-104mins- exclusive of procedures): Not Applicable
ED Attending Note
-
Portions of this chart may have been created with voice recognition software.� Occasional wrong word or��sound alike� substitutions may have occurred due to the inherent limitations of voice recognition software.
Discharge Plan
Departure
Patient Disposition: Other
Date of Disposition: 11/28/23
Time of Disposition: 23:08
Discharge Problem:
Hematoma of left thigh, Pain
Prescriptions:
No Action
pioglitazone 30 MG tablet
30 mg PO DAILY
cholecalciferol (vitamin D3) 1,000 UNITS tablet
1,000 units PO TID
Invokana 100 MG tablet
100 mg PO DAILY
magnesium oxide 400 MG tablet
400 mg PO DAILY
valsartan 80 MG tablet
160 mg PO BID
ferrous gluconate 240 MG tablet
324 mg PO TID
Januvia 100 MG tablet
100 mg PO QPM
Eliquis 5 MG tablet
5 mg PO BID
Hold Instructions: Resume on 11/24/23.
coQ10 (ubiquinol) 100 mg Capsule
100 mg PO DAILY Qty: 0
triamterene-hydrochlorothiazid 37.5-25 mg Tablet
1 tab PO DAILY
multivitamin Tablet
1 tab PO DAILY
atorvastatin 40 mg Tablet
40 mg PO HS
alpha lipoic acid 600 mg Tablet
600 mg PO DAILY
metformin 1,000 MG tablet
1,000 mg PO BID
amlodipine 5 mg Tablet
5 mg PO DAILY Qty: 90 5RF
metoprolol succinate [Toprol XL] 25 mg tablet extended release 24 hr
12.5 mg PO BID
cyanocobalamin (vitamin B-12) 1,000 mcg Tablet
1,000 mcg PO DAILY
hydrocodone-acetaminophen 5-325 mg tablet
1 tab PO Q8H PRN (Reason: severe pain) Qty: 10 0RF
Referrals:
Gerry Holman MD [Family Provider] -
Interventions
Interventions:
*Risk Screen - Suicide Last Done: 11/28/23 18:37
*General Assessment Last Done: 11/28/23 18:37
*Neglect/Abuse Screening Last Done: 11/28/23 18:37
*ED COVID-19 Vaccine History Last Done: 11/28/23 18:37
ED-Musculoskeletal Assessment Last Done: 11/28/23 18:49
Discharge Date and Time
Print Language: SWEDISH
[2023-11-28] MEDS: TYLENOL 1000 MG PO (21:37)
[2023-11-28] MEDS: LIDOCAINE 4% PATCH 1 PATCH TOPICAL (21:37)
[2023-11-28 22:55] VITALS: BP 143/83
[2023-11-28 23:00] VITALS: BP 128/75
[2023-11-28] MEDS: ULTRAM 50 MG PO (23:10)
[2023-11-28] MEDS: TOPROL XL 12.5 MG PO (23:47)
[2023-11-28] MEDS: DIOVAN 160 MG PO (23:47)
[2023-11-28] MEDS: ELIQUIS 5 MG PO (23:47)
[2023-11-28] MEDS: LIPITOR 40 MG PO (23:47)
[2023-11-29 06:42] VITALS: BP 139/98
[2023-11-29 09:18] VITALS: BP 137/77; PULSE 60; O2SAT 95
[2023-11-29] MEDS: PERCOCET 5/325 1 TABLET PO (09:32)
--- NOTE | 2023-11-29 09:34 | CM ---
Addendum entered by Amanda Dill 11/29/23 11:04:
Clinicals faxed to [facility] [phone]
Email to [facility] sosa-t[facility] team for expedited processing request
Update to spouse over phone
Original Note:
ED CM met with pt bedside
Pt resides with his spouse in [facility], no steps throughout home or to enter
Pt is independent with his ADLs, no ADs
Has a WW for use if needed
No financial insecurities
PCP- Cassie Holman
Rx- [facility] [address]
Pt admitted to from 11/19-11/21 and [facility]
Per pt, was told on admission visit that pt does not qualify for services and was closed
Pt notes pain and inability to walk or care for self at home
Pt's family will be out of state come 12/02 for a few weeks
Discussed SNF vs home with private duty care
Notes private duty is iot financially feasible
He is requesting SNF be arranged at [facility]
Referral sent [facility] and update to Jennifer/admissions
[facility] auth initiated on [employer] and pending
Will fax clinicals once OT eval available
Pending ref# [id number]
Discharge Disposition- [place] pending [employer] auth
[2023-11-29 09:38] LABS: Glucose - Point of Care 136 mg/dl (70-99)
[2023-11-29 10:35] VITALS: BP 135/84
[2023-11-29 10:38] VITALS: BP 135/76
[2023-11-29] MEDS: DIOVAN 160 MG PO ×2 (10:44→20:14)
[2023-11-29] MEDS: ELIQUIS 5 MG PO ×2 (10:45→20:15)
[2023-11-29] MEDS: DYAZIDE 1 CAPSULE PO (10:45)
[2023-11-29] MEDS: GLUCOPHAGE 1000 MG PO ×2 (10:45→16:37)
[2023-11-29] MEDS: TOPROL XL 12.5 MG PO ×2 (10:45→20:17)
[2023-11-29] MEDS: NORVASC 5 MG PO (10:45)
[2023-11-29] MEDS: JARDIANCE 10 MG PO (10:45)
[2023-11-29] MEDS: ACTOS 30 MG PO (10:45)
--- NOTE | 2023-11-29 13:36 | HPS.HSE ---
Addendum entered and electronically signed by Rodrigo Garcia MD 11/29/23 15:06:
78-year-old male with a past medical history of paroxysmal atrial fibrillation on Eliquis, nov-culnsyn-qkpcudwqa diabetes, coronary artery disease, and recent left thigh hematoma recently discharged from [facility] on 11/22/2023 presents with
ambulatory dysfunction secondary to left thigh pain when he ran out of his pain medications.
Patient's hemoglobin is stable, can continue Eliquis.
Give prednisone 40 mg p.o. daily x 3 days, Tylenol 1 g 3 times daily, oxycodone as needed.
Also give aggressive bowel regimen as patient is complaining of constipation. Consult PT/OT for SNF placement.
I have personally seen and examined the patient, and agree with the plan of care as documented by OBDULIO Nam.
Advance care planning discussed, patient is a full code.
All other issues as outlined by the advanced care practitioner.
Original Note:
Family Physician
-
Family Physician: Gerry Holman
Chief Complaint
-
left thigh pain
History of Present Illness
78-year-old with past medical history for asthma, bronchitis, hypertension, hyperlipidemia, type 2 diabetes presented to us with left lower extremities pain. Patient stated he was doing fine at home . He was taking 2 hydrocodone daily. Day before
yesterday he ran out of hydrocodone. Yesterday he started having pain and was not able to walk or put any pressure on left lower extremities. Patient denied any, dizziness, syncopal episode. Patient denied any fever, chills, chest pain, short of
breath. Patient denied any abdominal pain, nausea, vomiting, diarrhea. Patient denied dysuria hematuria.
Duplex with no evidence of DVT. Patient received oxycodone and tramadol in the ER. Patient also received lidocaine patch. Case management working on placement. Admitting for further management
Medical History
Past Medical History
Past Medical History: Reports Other
Additional Past Medical History:
Prostate cancer
Type 2 diabetes
Hyperlipidemia
hypertension
Coronary artery disease
Paroxysmal A-fib
stage I chronic kidney disease
chronic bronchitis
Thyroid nodule
Past Surgical History: Reports Other
Additional Past Surgical History:
Bilateral herniorrhaphy
Cholecystectomy
Prostatectomy
partial thyroidectomy
Cardioversion
Tonsillectomy
Social History
Tobacco: Former Smoker
Alcohol: Occasional
Drug: None
Personal:
Living: With Family
Family History
Family History: Not pertinent
Allergies / Home Medications
Allergies reflects when Allergies were last updated in [employer].
Home Medications with original date entered in [employer]
Allergy/Medication List:
Allergies
Allergy/AdvReac Type Severity Reaction Status Date / Time
pollen extracts Allergy hayfever Verified 11/20/22 13:37
Home Medications
canagliflozin 100 mg tablet (Invokana) 100 mg PO DAILY 05/10/16
cholecalciferol (vitamin D3) 25 mcg (1,000 unit) tablet 1,000 units PO TID Supplement 05/10/16
pioglitazone 30 mg tablet 30 mg PO DAILY Diabetes 05/10/16
magnesium oxide 400 mg (241.3 mg magnesium) tablet 400 mg PO DAILY Constipation 01/11/18
ferrous gluconate 240 mg (27 mg iron) tablet 324 mg PO TID Supplement 11/22/19
sitagliptin phosphate 100 mg tablet (Januvia) 100 mg PO QPM Diabetes 11/22/19
valsartan 80 mg tablet 160 mg PO BID Blood Pressure 11/22/19
coQ10 (ubiquinol) 100 mg capsule 100 mg PO DAILY Supplement ##0 11/03/22
multivitamin 1 tab PO DAILY Supplement 11/10/22
triamterene 37.5 mg-hydrochlorothiazide 25 mg tablet 1 tab PO DAILY Blood Pressure 11/10/22
alpha lipoic acid 600 mg tablet 600 mg PO DAILY Supplement 11/18/22
amlodipine 5 mg tablet 5 mg PO DAILY #90 tabs 11/18/22
atorvastatin 40 mg tablet 40 mg PO HS High Cholesterol 11/18/22
metformin 1,000 mg tablet 1,000 mg PO BID Diabetes 11/18/22
cyanocobalamin (vitamin B-12) 1,000 mcg tablet 3,000 mcg PO DAILY Supplement 11/20/23
metoprolol succinate 25 mg tablet,extended release 24 hr (Toprol XL) 12.5 mg PO BID Heart Disease/Condition 11/20/23
apixaban 5 mg tablet (Eliquis) 5 mg PO BID 11/29/23
hydrocodone 5 mg-acetaminophen 325 mg tablet 1 tab PO Q8HPRN PRN severe pain 11/29/23
sennosides 8.6 mg tablet (senna) 8.6 mg PO BIDPRN PRN CONSTIPATION 11/29/23
Review of Systems
-
Constitutional: Reports No Symptoms
EENT: Reports No Symptoms
Respiratory: Reports No Symptoms
Cardiac: Reports No Symptoms
Abdomen/GI: Reports No Symptoms
: Reports No Symptoms
Musculoskeletal: Reports Other (Left lower extremity edema )
Skin: Reports No Symptoms
Neurological: Reports No Symptoms
Endocrine: Reports No Symptoms
Hematologic/Lymphatic: Reports No Symptoms
Psych: Reports No Symptoms
Physical Exam
Vital Signs
Vital Signs
Temp Pulse Resp BP Pulse Ox
98.6 F 75 20 135/84 99
11/29/23 06:42 11/29/23 10:35 11/29/23 10:35 11/29/23 10:35 11/29/23 10:35
Physical Exam
General: Well Developed, Well Nourished and No Apparent Distress
HEENT: NormoCephalic, Moist mucous membranes and Atraumatic
Respiratory: Clear
Cardiac: S1/S2 and Regular Rhythm; No Murmur or Rub
GI: Soft, Non Tender, Non Distended and Normal Bowel Sounds; No Organomegaly
Rectal: Deferred by Provider
Musculoskeletal: No Clubbing, No Cyanosis and Other (Left lower extremities edema)
Skin: No Rash
Neuro: AO x 3 and Nonfocal/grossly intact
Psych: Calm
Data Reviewed
-
Lab Data: Labs Reviewed by me
Impression/Plan
-
#ambulatory dysfunction/ recent left thigh intramuscular hematoma
-PT/OT
-pending placement
-hydrocodone continued
#Essential Hypertension
-EDGE FINISHER amlodipine
-EDGE FINISHER Metoprolol
-EDGE FINISHER Triamterene/HCTZ
#Hyperlipidemia
-EDGE FINISHER Lipitor
# Paroxysmal A-fib
-Eliquis and metoprolol continued
# Iron deficiency anemia
-Ferrous gluconate continued
GERD
Prostate CA 2006 s/p robotic prostatectomy
DM
-EDGE FINISHER Invokana, Januvia, Metformin, Pioglitazone
-Sliding scale
-Carb controlled diet
#Multinodular goiter s/p partial thyroidectomy
#Gout
#Remote hx tobacco Use
#DVT PPx Eliquis
FULL CODE
[2023-11-29 14:01] LABS: % Basophils 0.5 % (0-2); % Eosinophils 2.3 % (0-6); % Immature Granulocytes 0.2 % (0-0.5); % Lymphocytes 11.6 % (20.5-51.1); % Monocytes 10.6 % (1.7-9.3); % Neutrophils 74.8 % (42.2-75.2); Absolute Eosinophils 0.1 10^3/uL (0-0.7); Absolute Lymphocytes 0.7 10^3/uL (1.2-3.4); Absolute Monocytes 0.6 10^3/uL (0.1-0.6); Absolute Neutrophils 4.5 10^3/uL (1.4-6.5); Hematocrit 27.8 % (39.0-52.0); Hemoglobin 9.5 g/dL (13.0-18.0); Mean Corp Hgb Conc. 34.2 g/dL (33.0-37.0); Mean Corpuscular Hgb 32.3 pg (27.0-31.0); Mean Corpuscular Volume 94.6 fL (80.0-94.0); Mean Platelet Volume 9.4 fL (7.4-10.4); Nucleated Red Blood Cells % 0 % (-); Platelet Count 286 10^3/uL (130-400); Red Blood Cell Count 2.94 10^6/uL (4.70-6.10); Red Cell Dist. Width 14.8 % (11.5-14.5)
[2023-11-29 14:18] LABS: ALT (SGPT) 18 U/L (0-50); AST (SGOT) 37 U/L (17-59); Albumin 3.4 g/dl (3.5-5.0); Alkaline Phosphatase 103 U/L (38-126); Blood Urea Nitrogen 36 mg/dl (9-20); Calcium 9.1 mg/dl (8.4-10.2); Carbon Dioxide 27 mmol/L (22-30); Chloride 104 mmol/L (98-107); Creatine Phosphokinase 46 U/L (55-170); Estimated Creatinine Clearance 50 ml/min; Glucose 134 mg/dl (70-99); Potassium 3.8 mmol/L (3.5-5.1); Sodium 137 mmol/L (135-145); Total Bilirubin 1.8 mg/dl (0.2-1.3); Total Protein 5.6 g/dl (6.3-8.2); eGFR > 60.00
[2023-11-29 15:05] VITALS: BP 133/71
[2023-11-29 15:43] VITALS: BMI 23.5
[2023-11-29] MEDS: DELTASONE 40 MG PO (16:36)
[2023-11-29] MEDS: VITAMIN D3 (cholecalciferol) 25 MCG PO ×2 (16:37→22:05)
[2023-11-29] MEDS: FEOSOL 325 MG PO ×2 (16:37→22:05)
[2023-11-29] MEDS: TYLENOL 1000 MG PO ×2 (16:37→22:05)
[2023-11-29 16:41] LABS: Glucose - Point of Care 127 mg/dl (70-99)
[2023-11-29] MEDS: JANUVIA 100 MG PO (16:52)
--- NOTE | 2023-11-29 16:55 | PTCARENOTE ---
Received Pt from ED. Assist x3 to slide from stretcher to bed. AAOx3 able to make needs known. Oriented to room and call [place].
[2023-11-29] MEDS: SENOKOT 17.2 MG PO (20:14)
[2023-11-29] MEDS: MIRALAX 17 GRAMS PO (20:16)
[2023-11-29 21:46] LABS: Glucose - Point of Care 125 mg/dl (70-99)
[2023-11-29] MEDS: LIPITOR 40 MG PO (22:05)
[2023-11-29 23:49] VITALS: BP 120/77
--- NOTE | 2023-11-30 03:21 | DOWNTIME ---
There was a [employer] Client Senior Treasury Consultant Downtime on 11/30/2023 from 0100 to 11/30/2023 at 0255. Downtime documentation of patient's care, including medication administrations, has been reconciled in the electronic record per guidelines. Refer to the
patient's paper chart under the miscellaneous tab to see printed paper medication records and downtime forms.
[2023-11-30 06:39] VITALS: BP 125/79
--- NOTE | 2023-11-30 06:41 | W.PN.UPDATE ---
Update Note
Progress Note Update
RN notified ELECTRICAL UNIT REBUILDER, patient stated wants to have BM. Blood noted in the toilet as well as drops from penis, and the urine color is yellow. Patient reports nothing like this happened before, asymptomatic, Stable VS at 125/79 HR 60 94% RA and no c/o
dizziness. Will check CBC, UA and heme test. has hx of prostate cancer and is on Flomax, been voiding without difficulty. Patient is on Eliquis.
[2023-11-30 06:45] LABS: Hematocrit 29.8 % (39.0-52.0); Hemoglobin 10.1 g/dL (13.0-18.0); Mean Corp Hgb Conc. 33.9 g/dL (33.0-37.0); Mean Corpuscular Volume 94.3 fL (80.0-94.0); Platelet Count 313 10^3/uL (130-400); Red Blood Cell Count 3.16 10^6/uL (4.70-6.10); Red Cell Dist. Width 14.8 % (11.5-14.5); White Blood Cell Count 7.5 10^3/uL (4.8-10.8)
[2023-11-30 06:55] LABS: Blood Urea Nitrogen 47 mg/dl (9-20); Calcium 9.4 mg/dl (8.4-10.2); Carbon Dioxide 20 mmol/L (22-30); Chloride 104 mmol/L (98-107); Estimated Creatinine Clearance 43 ml/min; Glucose 163 mg/dl (70-99); Potassium 4.3 mmol/L (3.5-5.1); Sodium 137 mmol/L (135-145); eGFR 51.13
[2023-11-30 07:00] VITALS: BP 105/72
[2023-11-30] MEDS: MIRALAX 17 GRAMS PO ×2 (07:46→21:37)
[2023-11-30] MEDS: ACTOS 30 MG PO (07:47)
[2023-11-30] MEDS: MAG-TAB SR 84 MG PO (07:47)
[2023-11-30] MEDS: GLUCOPHAGE 1000 MG PO ×2 (07:47→16:42)
[2023-11-30] MEDS: VITAMIN D3 (cholecalciferol) 25 MCG PO ×3 (07:48→21:47)
[2023-11-30] MEDS: THERAGRAN 1 TABLET PO (07:48)
[2023-11-30] MEDS: VITAMIN B-12 3000 MCG PO (07:48)
[2023-11-30] MEDS: TYLENOL 1000 MG PO ×3 (07:48→21:48)
[2023-11-30] MEDS: SENOKOT 17.2 MG PO ×2 (07:48→21:39)
[2023-11-30] MEDS: FEOSOL 325 MG PO ×3 (07:49→21:47)
[2023-11-30] MEDS: DELTASONE 40 MG PO (07:49)
[2023-11-30] MEDS: ELIQUIS 5 MG PO ×2 (07:49→21:39)
[2023-11-30] MEDS: NORVASC 5 MG PO (07:49)
[2023-11-30] MEDS: DIOVAN PO (07:50)
[2023-11-30] MEDS: JARDIANCE 10 MG PO (07:51)
[2023-11-30] MEDS: TOPROL XL PO (07:51)
--- NOTE | 2023-11-30 08:36 | W.PN.HOSP.TC ---
Today's Communication/Plan
-
Discharge to short-term rehab tomorrow
Assessment / Plan
Assessment / Plan
HPI: 78-year-old male with a past medical history of paroxysmal atrial fibrillation on Eliquis, dqb-eekzphq-tfianmpef diabetes, coronary artery disease, and recent left thigh hematoma recently discharged from [facility] on 11/22/2023 presents
with ambulatory dysfunction secondary to left thigh pain when he ran out of his pain medications.
#ambulatory dysfunction/ recent left thigh intramuscular hematoma
Will treat with Tylenol 1 g 3 times daily, prednisone 40 mg daily for 3 days, oxycodone as needed
Discharge to short-term rehab tomorrow
#blood drops from penis
Hemoglobin stable
Resolved, monitor
#Essential Hypertension
-MENTAL HEALTH THERAPIST amlodipine
-MENTAL HEALTH THERAPIST Metoprolol
-MENTAL HEALTH THERAPIST Triamterene/HCTZ
#Hyperlipidemia
-MENTAL HEALTH THERAPIST Lipitor
# Paroxysmal A-fib
-Eliquis and metoprolol continued
# Iron deficiency anemia
-Ferrous gluconate continued
-Hemoglobin stable, can continue Eliquis
GERD
Prostate CA 2006 s/p robotic prostatectomy
DM
-MENTAL HEALTH THERAPIST Invokana, Januvia, Metformin, Pioglitazone
-Sliding scale
-Carb controlled diet
#Multinodular goiter s/p partial thyroidectomy
#Gout
#Remote hx tobacco Use
DVT prophylaxis�Eliquis
Full code
Total time spent to see the patient on the floor, examine the patient, review data and lab results, discuss treatment plan with patient, nursing staff around 39 minutes.
Physical Exam
General: No acute distress
HEENT: Normocephalic, Atraumatic, EOMI, MMM
Respiratory: Clear to Auscultation bilaterally
Cardiac: Normal S1/S2, Regular Rate and Rhythm
GI: Soft, Nontender, Nondistended, Normal Bowel Sounds
Extremities: No Clubbing, Cyanosis
Left thigh ecchymosis noted
Neuro: Nonfocal/Grossly Intact
Psych: Calm, Cooperative
Derm: No Visible lesions
Anticipated Discharge: Within 24 hours
Subjective/Interval History
-
Date of Service: November 30, 2023
Overnight events noted. Patient had small drops of blood from his penis, urine color is clear. No more hematuria. His pain is improved. No fever, no vomiting.
Objective Data
-
Labs:
Laboratory Results
11/30/23
06:19
WBC 7.5
Hgb 10.1 L
Hct 29.8 L
Plt Count 313
Sodium 137
Potassium 4.3
Chloride 104
Carbon Dioxide 20 L
BUN 47 H
Creatinine 1.4 H
Glucose 163 H
Calcium 9.4
Vital Signs:
Vital Signs
Temp Pulse Resp BP Pulse Ox
97.4 F 59 17 105/72 92
11/30/23 07:00 11/30/23 07:51 11/30/23 07:00 11/30/23 07:50 11/30/23 07:00
I&O
11/29/23 11/30/23 12/01/23
06:59 06:59 06:59
Intake Total 960 / 960
Output Total 950 / 950
Balance
--- NOTE | 2023-11-30 11:11 | CM ---
CM reviewed chart, checked status of auth through [employer], auth #[id number], auth pending. Updated Jennifer at [facility]. Patient seen bedside, updated on awaiting insurance approval. CM will continue to follow for all discharge planning needs.
Plan; [facility], awaiting [employer] auth.
[2023-11-30 12:34] LABS: Glucose - Point of Care 207 mg/dl (70-99)
[2023-11-30 15:00] VITALS: BP 128/78
[2023-11-30 15:02] VITALS: BP 135/76
[2023-11-30 15:17] LABS: Urine Albumin Trace (Neg - Trace); Urine Bilirubin Negative (Negative); Urine Character Clear (Clear); Urine Color Yellow; Urine Glucose 3+ (Negative); Urine Ketone Trace (Negative); Urine Leukocyte Negative (Negative); Urine Nitrite Negative (Negative); Urine Occult Blood 1+ (Negative); Urine Specific Gravity 1.015 (<1.030); Urine Urobilinogen Negative (Neg - 1+)
[2023-11-30 15:40] LABS: Urine Mucus Few; Urine Squamous Cell 0-2 /LPF (Few)
[2023-11-30 15:41] LABS: Urine Bacteria Few (Negative); Urine Red Blood Cell 16-20 /HPF (0-2); Urine White Cell 0-2 /HPF (0-5)
[2023-11-30 16:44] LABS: Glucose - Point of Care 238 mg/dl (70-99)
[2023-11-30] MEDS: JANUVIA 100 MG PO (17:06)
[2023-11-30 21:46] LABS: Glucose - Point of Care 163 mg/dl (70-99)
[2023-11-30] MEDS: DIOVAN 160 MG PO (21:46)
[2023-11-30] MEDS: TOPROL XL 12.5 MG PO (21:46)
[2023-11-30] MEDS: LIPITOR 40 MG PO (21:48)
[2023-11-30 22:00] VITALS: BP 125/79
[2023-12-01 07:00] VITALS: BP 124/76
[2023-12-01 07:11] LABS: Hematocrit 29.2 % (39.0-52.0); Hemoglobin 9.9 g/dL (13.0-18.0); Mean Corp Hgb Conc. 33.9 g/dL (33.0-37.0); Mean Corpuscular Hgb 32.7 pg (27.0-31.0); Mean Corpuscular Volume 96.4 fL (80.0-94.0); Platelet Count 332 10^3/uL (130-400); Red Blood Cell Count 3.03 10^6/uL (4.70-6.10); Red Cell Dist. Width 14.8 % (11.5-14.5); White Blood Cell Count 9.8 10^3/uL (4.8-10.8)
[2023-12-01 07:33] LABS: Blood Urea Nitrogen 62 mg/dl (9-20); Calcium 9.4 mg/dl (8.4-10.2); Carbon Dioxide 26 mmol/L (22-30); Chloride 102 mmol/L (98-107); Estimated Creatinine Clearance 35 ml/min; Glucose 146 mg/dl (70-99); Magnesium 2.1 mg/dl (1.6-2.3); Phosphorus 4.8 mg/dl (2.5-4.5); Potassium 4.3 mmol/L (3.5-5.1); Sodium 134 mmol/L (135-145)
--- NOTE | 2023-12-01 07:58 | W.PN.HOSP.TC ---
Today's Communication/Plan
-
see bold
Assessment / Plan
Assessment / Plan
HPI: 78-year-old male with a past medical history of paroxysmal atrial fibrillation on Eliquis, dhe-fflgwmn-aeegeraoy diabetes, coronary artery disease, and recent left thigh hematoma recently discharged from [facility] on 11/22/2023 presents
with ambulatory dysfunction secondary to left thigh pain when he ran out of his pain medications.
#ambulatory dysfunction/ recent left thigh intramuscular hematoma
Treat with Tylenol 1 g 3 times daily, prednisone 40 mg daily for 4 days, oxycodone as needed
Discharge to short-term rehab tomorrow
#Acute kidney injury
Creatinine 1.7 today, was 1.2 upon admission
Hold valsartan, hydrochlorothiazide/triamterene, metformin
Gentle IV fluids, trend creatinine
#blood drops from penis
Hemoglobin stable
Resolved, monitor
#Essential Hypertension
-CHINA PAINTER amlodipine
-CHINA PAINTER Metoprolol
-Holding valsartan, hydrochlorothiazide/triamterene secondary to JONAH
-Give hydralazine prn
#Hyperlipidemia
-CHINA PAINTER Lipitor
# Paroxysmal A-fib
-Eliquis and metoprolol continued
# Iron deficiency anemia
-Ferrous gluconate continued
-Hemoglobin stable, can continue Eliquis
GERD
Prostate CA 2006 s/p robotic prostatectomy
DM
-CHINA PAINTER Invokana, Januvia, Pioglitazone
-Sliding scale
-Carb controlled diet
#Multinodular goiter s/p partial thyroidectomy
#Gout
#Remote hx tobacco Use
DVT prophylaxis�Eliquis
Full code
Total time spent to see the patient on the floor, examine the patient, review data and lab results, discuss treatment plan with patient, nursing staff around 50 minutes.
Physical Exam
General: No acute distress
HEENT: Normocephalic, Atraumatic, EOMI, MMM
Respiratory: Clear to Auscultation bilaterally
Cardiac: Normal S1/S2, Regular Rate and Rhythm
GI: Soft, Nontender, Nondistended, Normal Bowel Sounds
Extremities: No Clubbing, Cyanosis
Left thigh ecchymosis noted
Neuro: Nonfocal/Grossly Intact
Psych: Calm, Cooperative
Derm: No Visible lesions
Anticipated Discharge: Within 24 hours
Subjective/Interval History
-
Date of Service: December 01, 2023
Patient reports his pain continues to improve. No fever, no vomiting.
Objective Data
-
Labs:
Laboratory Results
12/01/23
06:43
WBC 9.8
Hgb 9.9 L
Hct 29.2 L
Plt Count 332
Sodium 134 L
Potassium 4.3
Chloride 102
Carbon Dioxide 26
BUN 62 H
Creatinine 1.7 H
Glucose 146 H
Calcium 9.4
Vital Signs:
Vital Signs
Temp Pulse Resp BP Pulse Ox
97.9 F 79 18 125/79 97
11/30/23 22:00 11/30/23 22:00 11/30/23 22:00 11/30/23 22:00 11/30/23 22:00
I&O
11/30/23 12/01/23 12/02/23
06:59 06:59 06:59
Intake Total 960 / 960 480 / 480
Output Total 950 / 950 450 / 450
Balance
[2023-12-01 08:17] LABS: Glucose - Point of Care 156 mg/dl (70-99)
[2023-12-01] MEDS: MIRALAX 17 GRAMS PO ×2 (09:49→19:39)
[2023-12-01] MEDS: THERAGRAN 1 TABLET PO (09:50)
[2023-12-01] MEDS: TYLENOL 1000 MG PO ×3 (09:50→21:51)
[2023-12-01] MEDS: VITAMIN B-12 3000 MCG PO (09:50)
[2023-12-01] MEDS: VITAMIN D3 (cholecalciferol) 25 MCG PO ×3 (09:51→21:51)
[2023-12-01] MEDS: ACTOS 30 MG PO (09:51)
[2023-12-01] MEDS: DELTASONE 40 MG PO (09:52)
[2023-12-01] MEDS: DIOVAN 160 MG PO (09:52)
[2023-12-01] MEDS: FEOSOL 325 MG PO ×3 (09:52→21:51)
[2023-12-01] MEDS: ELIQUIS 5 MG PO ×2 (09:52→19:39)
[2023-12-01] MEDS: MAG-TAB SR 84 MG PO (09:53)
[2023-12-01] MEDS: NORVASC 5 MG PO (09:53)
[2023-12-01] MEDS: SENOKOT 17.2 MG PO ×2 (09:53→19:38)
[2023-12-01] MEDS: GLUCOPHAGE 1000 MG PO (09:53)
[2023-12-01] MEDS: JARDIANCE 10 MG PO (09:53)
[2023-12-01] MEDS: TOPROL XL PO (09:54)
--- NOTE | 2023-12-01 11:16 | CM ---
Addendum entered by Luli Vick 12/01/23 16:44:
Met with patient's and daughter at bedside
reported that she will only be available by phone from 12/02 through 12/16.
Patient is not bedridden and reported he can get in/out of a car
stated she has friend who will be able to provide car [facility] and to [facility] when discharged
Addendum entered by Luli Vick 12/01/23 16:23:
Patient's daughter contacted [employer] to inquire about delay in Authorization process; she stated that [employer] told her that a physician would need to call to expedite process
Addendum entered by Luli Vick 12/01/23 14:53:
Initial authorization submitted November 29, 2023
Contacted [employer] via phone @ 1:25 PM for AUTH status
Response: clinicals received and in review
CM Director sent another [employer] e-mail @ 1:33 PM.
Auth Approval still pending
Addendum entered by Luli Vick 12/01/23 11:50:
Spoke with patient's ; she stated that the outpatient MRI appointment is scheduled for tomorrow, [facility]02/23 @ [facility]
Addendum entered by Luli Vick 12/01/23 11:43:
Per Atteding, patient is scheduled for MRI tomorrow @ 3:30 PM;
If AUTH is approved, CM will coordinate transport to MRI for 3:30 appointment then to [facility]
Plan: DC to SNF @ [facility] tomorrow if AUTH approved.
Original Note:
Per Attending, patient is not stable for discharge today
Plan: DC to SNF @ [facility] when stable and AUTH approved
[2023-12-01 12:27] LABS: Glucose - Point of Care 202 mg/dl (70-99)
[2023-12-01] MEDS: NSS 1000 IV (12:49)
[2023-12-01] MEDS: ROXICODONE 5 MG PO ×2 (13:00→19:37)
[2023-12-01 15:30] VITALS: BP 116/70
[2023-12-01 16:54] LABS: Glucose - Point of Care 233 mg/dl (70-99)
[2023-12-01] MEDS: JANUVIA 100 MG PO (17:02)
[2023-12-01] MEDS: TOPROL XL 12.5 MG PO (21:51)
[2023-12-01] MEDS: LIPITOR 40 MG PO (21:51)
[2023-12-01 23:09] LABS: Glucose - Point of Care 206 mg/dl (70-99)
[2023-12-01 23:30] VITALS: BP 115/78
[2023-12-02] MEDS: NSS 1000 IV (01:25)
[2023-12-02] MEDS: ROXICODONE 5 MG PO ×2 (04:40→14:27)
[2023-12-02 06:54] LABS: Hematocrit 25.7 % (39.0-52.0); Hemoglobin 8.9 g/dL (13.0-18.0); Mean Corp Hgb Conc. 34.6 g/dL (33.0-37.0); Mean Corpuscular Hgb 32.8 pg (27.0-31.0); Mean Corpuscular Volume 94.8 fL (80.0-94.0); Mean Platelet Volume 9.8 fL (7.4-10.4); Platelet Count 316 10^3/uL (130-400); Red Blood Cell Count 2.71 10^6/uL (4.70-6.10); White Blood Cell Count 8.4 10^3/uL (4.8-10.8)
[2023-12-02 07:13] LABS: Blood Urea Nitrogen 51 mg/dl (9-20); Calcium 8.7 mg/dl (8.4-10.2); Carbon Dioxide 25 mmol/L (22-30); Chloride 107 mmol/L (98-107); Estimated Creatinine Clearance 43 ml/min; Glucose 135 mg/dl (70-99); Potassium 4.3 mmol/L (3.5-5.1); Sodium 137 mmol/L (135-145); eGFR 51.13
[2023-12-02 07:30] VITALS: BP 129/78
[2023-12-02 08:08] LABS: Glucose - Point of Care 133 mg/dl (70-99)
[2023-12-02] MEDS: MIRALAX 17 GRAMS PO (08:08)
[2023-12-02] MEDS: TYLENOL 1000 MG PO (08:08)
[2023-12-02] MEDS: ACTOS 30 MG PO (08:08)
[2023-12-02] MEDS: MAG-TAB SR 84 MG PO (08:09)
[2023-12-02] MEDS: NORVASC 5 MG PO (08:09)
[2023-12-02] MEDS: ELIQUIS 5 MG PO (08:10)
[2023-12-02] MEDS: FEOSOL 325 MG PO (08:10)
[2023-12-02] MEDS: SENOKOT 17.2 MG PO (08:11)
[2023-12-02] MEDS: TOPROL XL 12.5 MG PO (08:11)
[2023-12-02] MEDS: THERAGRAN 1 TABLET PO (08:11)
[2023-12-02] MEDS: VITAMIN B-12 3000 MCG PO (08:12)
[2023-12-02] MEDS: VITAMIN D3 (cholecalciferol) 25 MCG PO (08:12)
--- NOTE | 2023-12-02 08:14 | W.PN.HOSP.TC ---
Today's Communication/Plan
-
Discharge today
Assessment / Plan
Assessment / Plan
HPI: 78-year-old male with a past medical history of paroxysmal atrial fibrillation on Eliquis, kxl-oweeydd-sciiowava diabetes, coronary artery disease, and recent left thigh hematoma recently discharged from [facility] on 11/22/2023 presents
with ambulatory dysfunction secondary to left thigh pain when he ran out of his pain medications.
#ambulatory dysfunction/ recent left thigh intramuscular hematoma
S/p prednisone 40 mg daily for 3 days
Stable for dc on Tylenol 1 g 3 times daily, oxycodone as needed
F/u w/ PCP in 1 week
#Acute kidney injury
Improving on IVFs
Creatinine 1.4 today, was 1.7, was 1.2 upon admission
Hold valsartan/metformin upon dc, can resume 12/05/23
Rec permanently stopping, hydrochlorothiazide/triamterene
Repeat CMP on 12/05/23
#blood drops from penis
Likely from irritation
Hemoglobin stable on eliquis
#Essential Hypertension
-HYDRAULIC DESIGN ENGINEER amlodipine
-HYDRAULIC DESIGN ENGINEER Metoprolol
Hold valsartan/metformin upon dc, can resume 12/05/23
Rec permanently stopping, hydrochlorothiazide/triamterene
BP 129/78 without valsartan/hydrochlorothiazide/triamterene
#Hyperlipidemia
-HYDRAULIC DESIGN ENGINEER Lipitor
# Paroxysmal A-fib
-Eliquis and metoprolol continued
# Iron deficiency anemia
-Ferrous gluconate continued
-Hemoglobin stable, can continue Eliquis
GERD
Prostate CA 2006 s/p robotic prostatectomy
DM
-HYDRAULIC DESIGN ENGINEER Invokana, Januvia, Pioglitazone
-Sliding scale
-Carb controlled diet
#Multinodular goiter s/p partial thyroidectomy
#Gout
#Remote hx tobacco Use
DVT prophylaxis�Eliquis
Full code
Physical Exam
General: No acute distress
HEENT: Normocephalic, Atraumatic, EOMI, MMM
Respiratory: Clear to Auscultation bilaterally
Cardiac: Normal S1/S2, Regular Rate and Rhythm
GI: Soft, Nontender, Nondistended, Normal Bowel Sounds
Extremities: No Clubbing, Cyanosis
Left thigh ecchymosis noted
Neuro: Nonfocal/Grossly Intact
Psych: Calm, Cooperative
Derm: No Visible lesions
Anticipated Discharge: Today
Subjective/Interval History
-
Date of Service: December 02, 2023
Had some thigh pain, and took his oxy, feels better. No fever, no vomiting.
Objective Data
-
Labs:
Laboratory Results
12/02/23
06:31
WBC 8.4
Hgb 8.9 L
Hct 25.7 L
Plt Count 316
Sodium 137
Potassium 4.3
Chloride 107
Carbon Dioxide 25
BUN 51 H
Creatinine 1.4 H
Glucose 135 H
Calcium 8.7
Vital Signs:
Vital Signs
Temp Pulse Resp BP Pulse Ox
97.8 F 74 16 129/78 96
12/02/23 07:30 12/02/23 07:30 12/02/23 07:30 12/02/23 07:30 12/02/23 07:30
I&O
12/01/23 12/02/23 12/03/23
06:59 06:59 06:59
Intake Total 480 / 480 660 / 660
Output Total 450 / 450 1500 / 1500
Balance -840 / -840
[2023-12-02] MEDS: JARDIANCE 10 MG PO (08:17)
--- NOTE | 2023-12-02 09:53 | CM ---
Addendum entered by Luli Vick 12/02/23 16:17:
DC Summary and Case Management Referral form e-mailed to Lizz Chavez @ [facility] as requested
Addendum entered by Luli Vick 12/02/23 14:08:
IMM explained and signed
Step daughter will transport patient to [facility]
Report # [phone]

Addendum entered by Luli Vick 12/02/23 11:36:
Per patient, step-daughter will pick him up @ 1400 today; Jennifer MauroEdgar notified via phone
Addendum entered by Luli Vick 12/02/23 11:14:
Plan: discharge to [facility] today
GREG spoke with step daughterYing #[phone] via phone; she will transport to facility
Report # [phone]

Business Office Technician will send Case Management referral and discharge summary via secure email to [email or web address]
Original Note:
[employer] approved authorization for SNF subacute care level 1; Auth # [id number]; 12/02/2023 to 12/14/2023
Review due 12/15/2023; [employer]
Reviewer's name is Sheri # [phone]
[2023-12-02 10:37] LABS: Hemoglobin 9.6 g/dL (13.0-18.0)
[2023-12-02 12:04] LABS: Glucose - Point of Care 226 mg/dl (70-99)
--- NOTE | 2023-12-02 13:28 | W.DCSUMMARY ---
Discharge Summary
Discharge Data
Date of Admission: 11/29/23
Date of Discharge: 12/02/23
-
Pending Results: No
Hospital Course
Discharge diagnosis:
Ambulatory dysfunction secondary to left thigh hematoma/pain
Acute kidney injury
Benign essential hypertension
Blood drops from penis/trace hematuria
Paroxysmal atrial fibrillation on Eliquis
Iron deficiency anemia
Hyperlipidemia
Diabetes
Prostate cancer status post robotic prostatectomy
Hospital course:
78-year-old male with a past medical history of paroxysmal atrial fibrillation on Eliquis, wxy-xhjdvwx-jgqkiszhe diabetes, coronary artery disease, and recent left thigh hematoma recently discharged from [facility] on 11/22/2023 was admitted
for worsening ambulatory dysfunction secondary to left thigh hematoma/pain. Patient was recently discharged home on 11/22/2023 for his left thigh hematoma. He ran out of pain medications, and was admitted for worsening ambulatory dysfunction
secondary to his left thigh hematoma/pain.
Patient was treated with prednisone 40 mg p.o. daily for 3 days, Tylenol 1 g 3 times daily, and oxycodone 5 mg as needed. His pain improved. He was seen in conjunction with PT, who recommended short-term rehab.
Patient's hospital course was complicated by acute kidney injury secondary to dehydration while taking valsartan, and hydrochlorothiazide/triamterene. His valsartan, hydrochlorothiazide/triamterene, and metformin were all held. He received IV
fluids. His creatinine improved to 1.4 on the day of discharge. He has been instructed to hold his valsartan and metformin upon discharge, he can resume these medications on 12/05/2023. Patient's blood pressure was controlled off these
medications, he does not appear to need hydrochlorothiazide/triamterene. It is recommend that he permanently discontinue this medication.
During his hospitalization, patient did complain of trace hematuria with a few drops of blood from his penis. This was monitored, and found to be minimal. His urine is mostly clear. He is continued on his Eliquis, and his hemoglobin remained
stable at 9.6 on the day of discharge.
Patient is medically stable for discharge. He needs to have CMP and CBC checked on 12/05/2023. He needs to follow-up with his primary care doctor in 1 week.
Disposition: Short-term rehab
Discharge planning: Required 45-minute
Discharge Plan
-
Patient Disposition: Senior Care/SNF
Discharge Diagnosis/Procedures: Left thigh hematoma/pain, weakness, acute kidney injury
Condition: Good
Diet: Diabetic, Carb Controlled
Activity: As tolerated
Driving Restrictions: As prior to admission
Blood Work: CBC, CMP on 12/05/23
Referrals:
Gerry Holman MD [Family Provider] - in one week
Prescriptions:
New
acetaminophen [Tylenol Extra Strength] 500 mg Tablet
1,000 mg PO TID Qty: 90 0RF
oxycodone 5 mg Tablet
5 mg PO Q4HPRN PRN (Reason: moderate pain) Qty: 12 0RF
polyethylene glycol 3350 [HealthyLax] 17 gram Powder In Packet
17 g PO BID Qty: 100 0RF
sennosides [Senna Laxative] 8.6 mg Tablet
17.2 mg PO BID Qty: 120 0RF
Continued
pioglitazone 30 MG tablet
30 mg PO DAILY
cholecalciferol (vitamin D3) 1,000 UNITS tablet
1,000 units PO TID
Invokana 100 MG tablet
100 mg PO DAILY
magnesium oxide 400 MG tablet
400 mg PO DAILY
ferrous gluconate 240 MG tablet
324 mg PO TID
Januvia 100 MG tablet
100 mg PO QPM
coQ10 (ubiquinol) 100 mg Capsule
100 mg PO DAILY Qty: 0
multivitamin Tablet
1 tab PO DAILY
atorvastatin 40 mg Tablet
40 mg PO HS
alpha lipoic acid 600 mg Tablet
600 mg PO DAILY
metoprolol succinate [Toprol XL] 25 mg tablet extended release 24 hr
12.5 mg PO BID
cyanocobalamin (vitamin B-12) 1,000 mcg Tablet
3,000 mcg PO DAILY
Eliquis 5 mg Tablet
5 mg PO BID
hydrocodone-acetaminophen 5-325 mg tablet
1 tab PO Q8HPRN PRN (Reason: severe pain)
amlodipine 5 mg tablet
5 mg PO DAILY
Held
valsartan 80 MG tablet
160 mg PO BID
Hold Instructions: Resume on 12/05/23.
metformin 1,000 MG tablet
1,000 mg PO BID
Hold Instructions: Resume on 12/05/23.
Discontinued
triamterene-hydrochlorothiazid 37.5-25 mg Tablet
1 tab PO DAILY
sennosides [senna] 8.6 mg Tablet
8.6 mg PO BIDPRN PRN (Reason: CONSTIPATION)
Discharge Orders:
Discharge Patient (As Directed); Ordered 12/02/23
Ordered By: Rodrigo Garcia
Discharge Date and Time
Discharge Date/Time: 12/02/23 14:40
Print Language: THAI
[2023-12-02 13:45] VITALS: BP 121/74
== END 2023-12-02 14:40 ==
LOC: 3 WEST ACU 14:16
PROVIDERS: Nurse Practitioner Gerontology; Registered Nurse; ADMITTING PHYSICIAN Family Medicine; EMERGENCY PHYSICIAN Emergency Medicine; FAMILY PHYSICIAN Internal Medicine Geriatric Medicine
DX: M79.652 Pain in left thigh (principal); R26.2 Difficulty in walking, not elsewhere classified; N17.9 Acute kidney failure, unspecified; S70.12XA Contusion of left thigh, initial encounter; R31.9 Hematuria, unspecified; I48.0 Paroxysmal atrial fibrillation; I25.10 Atherosclerotic heart disease of native coronary artery without angina pectoris; I12.9 Hypertensive chronic kidney disease with stage 1 through stage 4 chronic kidney disease, or unspecified chronic kidney disease; J45.909 Unspecified asthma, uncomplicated; E11.9 Type 2 diabetes mellitus without complications; I10 Essential (primary) hypertension; E78.00 Pure hypercholesterolemia, unspecified; J42 Unspecified chronic bronchitis; E11.22 Type 2 diabetes mellitus with diabetic chronic kidney disease; N18.1 Chronic kidney disease, stage 1; D50.9 Iron deficiency anemia, unspecified; K21.9 Gastro-esophageal reflux disease without esophagitis; M10.9 Gout, unspecified; E04.2 Nontoxic multinodular goiter; Z87.891 Personal history of nicotine dependence; Z90.49 Acquired absence of other specified parts of digestive tract; Z79.01 Long term (current) use of anticoagulants; Z79.84 Long term (current) use of oral hypoglycemic drugs; Z85.46 Personal history of malignant neoplasm of prostate
CPT/HCPCS: 80048; 80053; 81003; 81015; 82550; 82962; 83036; 83735; 84100; 85018; 85025; 85027; 93971; 97116; 97530; 97535; 99285; G0378

== ENCOUNTER → 2023-12-05 12:06 | Outpatient (REF) | payer OTHER, SELFPAY ==
[2023-12-05 12:50] LABS: % Basophils 0.4 % (0-2); % Eosinophils 3.7 % (0-6); % Immature Granulocytes 0.4 % (0-0.5); % Lymphocytes 13.1 % (20.5-51.1); % Monocytes 10.6 % (1.7-9.3); % Neutrophils 71.8 % (42.2-75.2); Absolute Eosinophils 0.2 10^3/uL (0-0.7); Absolute Lymphocytes 0.7 10^3/uL (1.2-3.4); Absolute Monocytes 0.5 10^3/uL (0.1-0.6); Absolute Neutrophils 3.7 10^3/uL (1.4-6.5); Hematocrit 25.3 % (39.0-52.0); Hemoglobin 8.3 g/dL (13.0-18.0); Mean Corp Hgb Conc. 32.8 g/dL (33.0-37.0); Mean Corpuscular Hgb 32.9 pg (27.0-31.0); Mean Corpuscular Volume 100.4 fL (80.0-94.0); Nucleated Red Blood Cells % 0 % (-); Platelet Count 250 10^3/uL (130-400); Red Blood Cell Count 2.52 10^6/uL (4.70-6.10); Red Cell Dist. Width 15.3 % (11.5-14.5); White Blood Cell Count 5.1 10^3/uL (4.8-10.8)
[2023-12-05 13:06] LABS: ALT (SGPT) 14 U/L (0-50); AST (SGOT) 20 U/L (17-59); Albumin 2.8 g/dl (3.5-5.0); Alkaline Phosphatase 86 U/L (38-126); Blood Urea Nitrogen 35 mg/dl (9-20); Calcium 8.3 mg/dl (8.4-10.2); Carbon Dioxide 22 mmol/L (22-30); Chloride 107 mmol/L (98-107); Glucose 98 mg/dl (70-99); Potassium 3.7 mmol/L (3.5-5.1); Sodium 136 mmol/L (135-145); Total Bilirubin 1.2 mg/dl (0.2-1.3); Total Protein 4.8 g/dl (6.3-8.2); eGFR 47.06
== END ==
LOC: OLABP 12:06
PROVIDERS: ATTENDING PHYSICIAN Family Medicine
DX: K21.9 Gastro-esophageal reflux disease without esophagitis (principal); E11.40 Type 2 diabetes mellitus with diabetic neuropathy, unspecified; I10 Essential (primary) hypertension; J45.909 Unspecified asthma, uncomplicated
CPT/HCPCS: 36415; 80053; 85025

== ENCOUNTER → 2023-12-06 11:28 | Outpatient (REF) | payer OTHER, SELFPAY ==
[2023-12-06 12:38] LABS: % Basophils 0.6 % (0-2); % Eosinophils 3.5 % (0-6); % Immature Granulocytes 0.2 % (0-0.5); % Lymphocytes 11.2 % (20.5-51.1); % Monocytes 9.6 % (1.7-9.3); % Neutrophils 74.9 % (42.2-75.2); Absolute Eosinophils 0.2 10^3/uL (0-0.7); Absolute Lymphocytes 0.6 10^3/uL (1.2-3.4); Absolute Monocytes 0.5 10^3/uL (0.1-0.6); Absolute Neutrophils 3.8 10^3/uL (1.4-6.5); Hematocrit 26.9 % (39.0-52.0); Hemoglobin 8.7 g/dL (13.0-18.0); Mean Corp Hgb Conc. 32.3 g/dL (33.0-37.0); Mean Corpuscular Hgb 32.3 pg (27.0-31.0); Mean Platelet Volume 10.3 fL (7.4-10.4); Nucleated Red Blood Cells % 0 % (-); Platelet Count 256 10^3/uL (130-400); Red Blood Cell Count 2.69 10^6/uL (4.70-6.10); Red Cell Dist. Width 15.2 % (11.5-14.5); White Blood Cell Count 5.1 10^3/uL (4.8-10.8)
[2023-12-06 13:36] LABS: ALT (SGPT) 13 U/L (0-50); AST (SGOT) 21 U/L (17-59); Albumin 2.9 g/dl (3.5-5.0); Alkaline Phosphatase 88 U/L (38-126); Blood Urea Nitrogen 33 mg/dl (9-20); Calcium 8.9 mg/dl (8.4-10.2); Carbon Dioxide 22 mmol/L (22-30); Chloride 106 mmol/L (98-107); Creatine Phosphokinase 36 U/L (55-170); Glucose 107 mg/dl (70-99); Potassium 4.2 mmol/L (3.5-5.1); Sodium 134 mmol/L (135-145); Total Bilirubin 1.3 mg/dl (0.2-1.3); Total Protein 4.8 g/dl (6.3-8.2); eGFR 55.88
== END ==
LOC: OLABP 11:28
PROVIDERS: ATTENDING PHYSICIAN Family Medicine; FAMILY PHYSICIAN Family Medicine
DX: E11.40 Type 2 diabetes mellitus with diabetic neuropathy, unspecified (principal); M62.59 Muscle wasting and atrophy, not elsewhere classified, multiple sites
CPT/HCPCS: 80053; 82550; 85025

== ENCOUNTER → 2023-12-16 11:00 | Outpatient (REF) | payer MEDICARE, SELFPAY ==
[2023-12-16 12:26] LABS: ALT (SGPT) 21 U/L (0-50); AST (SGOT) 32 U/L (17-59); Alkaline Phosphatase 95 U/L (38-126); Blood Urea Nitrogen 15 mg/dl (9-20); Calcium 8.8 mg/dl (8.4-10.2); Carbon Dioxide 25 mmol/L (22-30); Chloride 108 mmol/L (98-107); Glucose 80 mg/dl (70-99); HDL Cholesterol 38 mg/dl; LDL Cholesterol, Calculated 43 mg/dl; Potassium 3.6 mmol/L (3.5-5.1); Sodium 138 mmol/L (135-145); Total Cholesterol 104 mg/dl (50-199); Total Protein 5.1 g/dl (6.3-8.2); Triglyceride 116 mg/dl (10-149); Very Low Density Lipoprotein 23 mg/dl (0-30); eGFR > 60.00
[2023-12-16 12:52] LABS: Glycohemoglobin (HgbA1c) 5.4 % (4.0-5.6)
== END ==
LOC: OLABP 11:00
PROVIDERS: ATTENDING PHYSICIAN Family Medicine
DX: E11.40 Type 2 diabetes mellitus with diabetic neuropathy, unspecified (principal); I10 Essential (primary) hypertension; J45.909 Unspecified asthma, uncomplicated; K21.9 Gastro-esophageal reflux disease without esophagitis
CPT/HCPCS: 36415; 80053; 80061; 83036

== ENCOUNTER → 2023-12-30 11:03 | Outpatient (REF) | payer OTHER, SELFPAY ==
[2023-12-30 11:28] LABS: % Eosinophils 2.8 % (0-6); % Immature Granulocytes 0.4 % (0-0.5); % Monocytes 8.7 % (1.7-9.3); % Neutrophils 70.1 % (42.2-75.2); Absolute Basophils 0.1 10^3/uL (0-0.2); Absolute Eosinophils 0.1 10^3/uL (0-0.7); Absolute Lymphocytes 0.8 10^3/uL (1.2-3.4); Absolute Monocytes 0.4 10^3/uL (0.1-0.6); Absolute Neutrophils 3.5 10^3/uL (1.4-6.5); Hematocrit 32.2 % (39.0-52.0); Hemoglobin 10.2 g/dL (13.0-18.0); Mean Corp Hgb Conc. 31.7 g/dL (33.0-37.0); Mean Corpuscular Hgb 31.2 pg (27.0-31.0); Mean Corpuscular Volume 98.5 fL (80.0-94.0); Mean Platelet Volume 9.5 fL (7.4-10.4); Nucleated Red Blood Cells % 0 % (-); Platelet Count 304 10^3/uL (130-400); Red Blood Cell Count 3.27 10^6/uL (4.70-6.10); Red Cell Dist. Width 15.9 % (11.5-14.5)
[2023-12-30 11:41] LABS: ALT (SGPT) 27 U/L (0-50); AST (SGOT) 28 U/L (17-59); Albumin 3.6 g/dl (3.5-5.0); Alkaline Phosphatase 101 U/L (38-126); Blood Urea Nitrogen 35 mg/dl (9-20); Calcium 9.5 mg/dl (8.4-10.2); Carbon Dioxide 24 mmol/L (22-30); Chloride 107 mmol/L (98-107); Glucose 111 mg/dl (70-99); HDL Cholesterol 41 mg/dl; Iron 90 ug/dl (49-181); LDL Cholesterol, Calculated 77 mg/dl; Potassium 4.3 mmol/L (3.5-5.1); Sodium 139 mmol/L (135-145); Total Bilirubin 0.8 mg/dl (0.2-1.3); Total Cholesterol 142 mg/dl (50-199); Total Protein 5.8 g/dl (6.3-8.2); Triglyceride 122 mg/dl (10-149); Very Low Density Lipoprotein 24 mg/dl (0-30); eGFR 55.88
[2023-12-30 11:50] LABS: Percent Saturation 36 % (20-50); Total Iron Binding Capacity 248 ug/dl (261-462)
[2023-12-30 11:57] LABS: Vitamin D, 25-OH*** 59.3 ng/mL (30-80)
[2023-12-30 13:30] LABS: Glycohemoglobin (HgbA1c) 5.5 % (4.0-5.6)
== END ==
LOC: OLABPV 11:03
PROVIDERS: ATTENDING PHYSICIAN Internal Medicine Geriatric Medicine
DX: E11.9 Type 2 diabetes mellitus without complications (principal); I10 Essential (primary) hypertension; E78.5 Hyperlipidemia, unspecified; Z13.89 Encounter for screening for other disorder; E55.9 Vitamin D deficiency, unspecified; I48.0 Paroxysmal atrial fibrillation; G47.33 Obstructive sleep apnea (adult) (pediatric); Q24.5 Malformation of coronary vessels; I25.10 Atherosclerotic heart disease of native coronary artery without angina pectoris; N52.9 Male erectile dysfunction, unspecified; C61 Malignant neoplasm of prostate; E04.1 Nontoxic single thyroid nodule; F68.8 Other specified disorders of adult personality and behavior; Q79.9 Congenital malformation of musculoskeletal system, unspecified; S70.02XD Contusion of left hip, subsequent encounter; D50.0 Iron deficiency anemia secondary to blood loss (chronic)
CPT/HCPCS: 36415; 80053; 80061; 82306; 82728; 83036; 83540; 83550; 84155; 84165; 85025

== ENCOUNTER → 2023-12-30 15:29 | Outpatient (REF) | payer OTHER, SELFPAY | LOC: PAVMRI 15:29 | PROVIDERS: ATTENDING PHYSICIAN Internal Medicine Geriatric Medicine | DX: F68.8 Other specified disorders of adult personality and behavior (principal) | CPT/HCPCS: 70551 ==

== ENCOUNTER 2024-01-30 19:03 | Emergency (ER) | payer OTHER, SELFPAY ==
[2024-01-30 19:07] VITALS: BP 116/79
[2024-01-30 19:23] LABS: % Basophils 0.2 % (0-2); % Eosinophils 0.2 % (0-6); % Immature Granulocytes 0.3 % (0-0.5); % Lymphocytes 3.8 % (20.5-51.1); % Monocytes 9.2 % (1.7-9.3); % Neutrophils 86.3 % (42.2-75.2); Absolute Lymphocytes 0.5 10^3/uL (1.2-3.4); Absolute Monocytes 1.1 10^3/uL (0.1-0.6); Absolute Neutrophils 10.1 10^3/uL (1.4-6.5); Hemoglobin 11.1 g/dL (13.0-18.0); Mean Corp Hgb Conc. 33.6 g/dL (33.0-37.0); Mean Corpuscular Hgb 29.8 pg (27.0-31.0); Mean Corpuscular Volume 88.7 fL (80.0-94.0); Nucleated Red Blood Cells % 0 % (-); Platelet Count 443 10^3/uL (130-400); Red Blood Cell Count 3.72 10^6/uL (4.70-6.10); Red Cell Dist. Width 14.6 % (11.5-14.5); White Blood Cell Count 11.7 10^3/uL (4.8-10.8)
[2024-01-30 19:39] LABS: COVID-19 Antigen Negative (Negative)
[2024-01-30 19:46] LABS: ALT (SGPT) 18 U/L (0-50); AST (SGOT) 19 U/L (17-59); Albumin 3.8 g/dl (3.5-5.0); Alkaline Phosphatase 134 U/L (38-126); Blood Urea Nitrogen 34 mg/dl (9-20); Calcium 9.5 mg/dl (8.4-10.2); Carbon Dioxide 22 mmol/L (22-30); Chloride 101 mmol/L (98-107); Glucose 164 mg/dl (70-99); Potassium 4.2 mmol/L (3.5-5.1); Sodium 140 mmol/L (135-145); Total Bilirubin 0.8 mg/dl (0.2-1.3); Total Protein 6.4 g/dl (6.3-8.2); eGFR > 60.00
--- NOTE | 2024-01-30 21:27 | ED.GENMED ---
History of Present Illness
General
Chief Complaint: Weakness
Time Seen by Provider: 01/30/24 21:26
History of Present Illness
History of Present Illness:
HPI: The patient presents with generalized weakness and fatigue. He had a hospitalization here related to the left thigh hematoma and his symptoms had improved but now he feels a little bit worse regarding pain in the left thigh. He has been
taking Tylenol. He does not think that tramadol would help. He does not necessarily want to go on anything stronger though.
EXAM:
GENERAL: The patient appears generally weak
HEENT: Moist oral mucosa
CARDIOVASCULAR: No murmurs, normal heart rate, regular rhythm, No chest wall tenderness
PULMONARY: No respiratory distress, breath sounds are clear and equal
ABDOMEN: Soft with no peritoneal signs, no tenderness
NEUROLOGIC: Excellent strength all extremities, no coordination deficits
PSYCHIATRIC: Appropriate mental status, normal insight and judgement
EXTREMITIES: Nontender, no edema, moves all extremities equally, his compartments are soft, there is no significant, there is just slightly decreased active range of motion at the left lower extremity, there is no palpable mass in the popliteal
fossa on the left
SKIN: No rash, no lesions
TIME OF INITIAL ENCOUNTER: 9:20 PM
NUMBER AND COMPLEXITY OF PROBLEMS ADDRESSED AT THE ENCOUNTER
� Chronic conditions affecting care: Asthma, A-fib, high blood pressure, hyperlipidemia
� Acute Exacerbation and/or Progression of Chronic Illness: This is an acute problem
� Differential Diagnosis includes: Worsening anemia, dehydration, [place]
AMOUNT AND/OR COMPLEXITY OF DATA TO BE REVIEWED AND ANALYZED
� I performed an independent evaluation of and my interpretation is:
EKG:
CT:
X-rays:
Laboratory Studies: White count 11.7, hemoglobin 11.1, platelets 440, BUN 34, creatinine 1.1, COVID-negative
Other:
� Review of other/old records: The hemoglobin on 12/30/2023 was 10.2; on his last hospitalization, he was in [place] and certain meds were held
� Clinical information was obtained by an independent historian: None needed
� Prescriptions/Medications Considered but not given:
� Further testing considered but not performed:
RISK OF COMPLICATIONS AND/OR MORBIDITY OR MORTALITY OF PATIENT MANAGEMENT
� Social determinants of health affecting care: Lives at home
� Discussion with other providers:
� Escalation of care including admission/observation vs risk of discharge considered: The patient reports of increased pain and had recent hematoma of the left thigh but his physical examination is unremarkable. His compartments
are soft. There is no clinical evidence for hematoma at this time. His hemoglobin has improved. His BUN to creatinine ratio was elevated and he was able to drink water in the waiting room as well as in the room in the emergency department�oral
fluids helped him feel better. I sent prescription for tramadol to his pharmacy as he is not feeling improved only with Tylenol.
Past History
Past History
ED Past Medical History: Asthma (Bronchitis), HTN, Hypercholesterolemia and NIDDM (last A1c=6.1, FS BSs at home have not been elevated)
ED Past Surgical History: Cholecystectomy and Other
Social History
Tobacco: Former smoker
Alcohol: Occasional
Drug: None
Personal:
Living: with family
Phy Exam
Physical Exam
Physical Exam:
See HPI
Course
Orders/Labs/Results
Orders:
Orders
01/30/24 19:16
COVID-19 Antigen Urgent
Source: Nasal Swab
Complete Blood Count/With Diff Urgent
Comprehensive Metabolic Panel Urgent
01/30/24 21:28
Electrocardiogram (*1) Urgent
Reason for Study: Atrial Fibrillation
EKG- Treatment ONCE
Abnormal Lab Results
01/30/24
19:16
WBC 11.7 H 10^3/uL
(4.8-10.8)
RBC 3.72 L 10^6/uL
(4.70-6.10)
Hgb 11.1 L g/dL
(13.0-18.0)
Hct 33.0 L %
(39.0-52.0)
RDW 14.6 H %
(11.5-14.5)
Plt Count 443 H 10^3/uL
(130-400)
Absolute Neuts (auto) 10.1 H 10^3/uL
(1.4-6.5)
Absolute Lymphs (auto) 0.5 L 10^3/uL
(1.2-3.4)
Absolute Monos (auto) 1.1 H 10^3/uL
(0.1-0.6)
Neutrophils % 86.3 H %
(42.2-75.2)
Lymphocytes % 3.8 L %
(20.5-51.1)
BUN 34 H mg/dl
(9-20)
Glucose 164 H mg/dl
(70-99)
Alkaline Phosphatase 134 H U/L
(38-126)
01/30/24 19:16
01/30/24 19:16
Vital Signs
Initial and Last Documented VS:
Initial Vital Signs
Temp Pulse Resp BP Pulse Ox
99.9 F 89 18 116/79 96
01/30/24 19:07 01/30/24 19:07 01/30/24 19:07 01/30/24 19:07 01/30/24 19:07
Last Documented Vital Signs
Temp Pulse Resp BP Pulse Ox
99.9 F 68 18 134/81 97
01/30/24 19:07 01/30/24 22:33 01/30/24 22:33 01/30/24 22:33 01/30/24 22:33
*Critical Care Note
Total Time (30-74mins, 75-104mins- exclusive of procedures): Not Applicable
ED Attending Note
-
Portions of this chart may have been created with voice recognition software.� Occasional wrong word or��sound alike� substitutions may have occurred due to the inherent limitations of voice recognition software.
Discharge Plan
Departure
Patient Disposition: Home (Routine Discharge)
Date of Disposition: 01/30/24
Time of Disposition: 22:25
Patient with high blood pressure during this ER visit?: Yes
Discharge Problem:
Weakness
Prescriptions:
New
tramadol 50 mg tablet
50 mg PO TID PRN (Reason: Pain) Qty: 14 0RF
No Action
pioglitazone 30 MG tablet
30 mg PO DAILY
cholecalciferol (vitamin D3) 1,000 UNITS tablet
1,000 units PO TID
Invokana 100 MG tablet
100 mg PO DAILY
magnesium oxide 400 MG tablet
400 mg PO DAILY
valsartan 80 MG tablet
160 mg PO BID
ferrous gluconate 240 MG tablet
324 mg PO TID
Januvia 100 MG tablet
100 mg PO QPM
coQ10 (ubiquinol) 100 mg Capsule
100 mg PO DAILY Qty: 0
multivitamin Tablet
1 tab PO DAILY
atorvastatin 40 mg Tablet
40 mg PO HS
alpha lipoic acid 600 mg Tablet
600 mg PO DAILY
metformin 1,000 MG tablet
1,000 mg PO BID
metoprolol succinate [Toprol XL] 25 mg tablet extended release 24 hr
12.5 mg PO BID
cyanocobalamin (vitamin B-12) 1,000 mcg Tablet
3,000 mcg PO DAILY
Eliquis 5 mg Tablet
5 mg PO BID
hydrocodone-acetaminophen 5-325 mg tablet
1 tab PO Q8HPRN PRN (Reason: severe pain)
amlodipine 5 mg tablet
5 mg PO DAILY
acetaminophen [Tylenol Extra Strength] 500 mg Tablet
1,000 mg PO TID Qty: 90 0RF
oxycodone 5 mg Tablet
5 mg PO Q4HPRN PRN (Reason: moderate pain) Qty: 12 0RF
polyethylene glycol 3350 [HealthyLax] 17 gram Powder In Packet
17 g PO BID Qty: 100 0RF
sennosides [Senna Laxative] 8.6 mg Tablet
17.2 mg PO BID Qty: 120 0RF
Referrals:
UNKNOWN - PT DOES,NOT KNOW [Unknown Provider] -
Activity Restrictions/Additional Instructions:
Your hemoglobin level has improved now up to 11.1�in November it was as low as 8.3. Your white blood cell count is slightly elevated currently at 11.7 however your vital signs are unremarkable. Your kidney function, creatinine, is normal. Continues
to drink fluids to stay hydrated. Return here if worse. Be sure to obtain the MRI as previously scheduled.
Interventions
Interventions:
*Risk Screen - Suicide Last Done: 01/30/24 19:04
*General Assessment Last Done: 01/30/24 19:07
*Neglect/Abuse Screening Last Done: 01/30/24 19:07
ED- Fall Risk Assessment Last Done: 01/30/24 22:33
*ED COVID-19 Vaccine History Last Done: 01/30/24 22:33
*Nursing Disposition Last Done: 01/30/24 22:33
ED- Cardiac Assessment Last Done: 01/30/24 22:12
ED- Neurological Assessment Last Done: 01/30/24 22:12
ED- Pulmonary Assessment Last Done: 01/30/24 22:12
Discharge Date and Time
Discharge Date/Time: 01/30/24 22:34
Print Language: CROATIAN
[2024-01-30 22:33] VITALS: BP 134/81
== END 2024-01-30 22:34 | disposition home or self-care (01) ==
LOC: EMR 19:03
PROVIDERS: Emergency Medicine; EMERGENCY PHYSICIAN Emergency Medicine; FAMILY PHYSICIAN Internal Medicine Geriatric Medicine
DX: R53.1 Weakness (principal); I10 Essential (primary) hypertension; Z11.52 Encounter for screening for COVID-19; I48.91 Unspecified atrial fibrillation; J45.909 Unspecified asthma, uncomplicated; E78.00 Pure hypercholesterolemia, unspecified
CPT/HCPCS: 99283; 80053; 85025; 87811

== ENCOUNTER → 2024-02-01 11:49 | Outpatient (REF) | payer OTHER, SELFPAY ==
[2024-02-01 13:28] LABS: % Basophils 0.5 % (0-2); % Eosinophils 1.2 % (0-6); % Immature Granulocytes 0.4 % (0-0.5); % Lymphocytes 9.4 % (20.5-51.1); % Monocytes 11.2 % (1.7-9.3); % Neutrophils 77.3 % (42.2-75.2); Absolute Eosinophils 0.1 10^3/uL (0-0.7); Absolute Lymphocytes 0.8 10^3/uL (1.2-3.4); Absolute Neutrophils 6.6 10^3/uL (1.4-6.5); Hematocrit 30.9 % (39.0-52.0); Hemoglobin 10.4 g/dL (13.0-18.0); Mean Corp Hgb Conc. 33.7 g/dL (33.0-37.0); Mean Corpuscular Hgb 29.8 pg (27.0-31.0); Mean Corpuscular Volume 88.5 fL (80.0-94.0); Mean Platelet Volume 9.2 fL (7.4-10.4); Nucleated Red Blood Cells % 0 % (-); Platelet Count 444 10^3/uL (130-400); Red Blood Cell Count 3.49 10^6/uL (4.70-6.10); Red Cell Dist. Width 14.6 % (11.5-14.5); Reticulocyte Count 1.7 % (0.4-2.8); White Blood Cell Count 8.5 10^3/uL (4.8-10.8)
[2024-02-01 13:29] LABS: LDH 152 U/L (120-246)
[2024-02-01 13:52] LABS: Erythrocyte Sed Rate 100 mm/hour (0-20)
[2024-02-01 14:36] LABS: Folate 12.8 ng/ml (2.76-20); Vitamin B12 983 pg/ml (239-931)
[2024-02-02 14:22] LABS: Hepatitis C Antibody Negative (Negative)
[2024-02-02 19:16] LABS: HIV Combo Negative (Negative)
[2024-02-04 01:56] LABS: Haptoglobin 505 mg/dL (30-200)
== END ==
LOC: OLABPV 11:49
PROVIDERS: ATTENDING PHYSICIAN Internal Medicine Hematology & Oncology
DX: D64.9 Anemia, unspecified (principal); D83.9 Common variable immunodeficiency, unspecified
CPT/HCPCS: 36415; 82607; 82746; 83010; 83615; 84630; 85025; 85045; 85652; 86803; 86880; 87389

== ENCOUNTER → 2024-02-21 10:45 | Outpatient (REF) | payer OTHER, SELFPAY ==
[2024-02-21 12:09] LABS: % Basophils 0.5 % (0-2); % Eosinophils 3.4 % (0-6); % Immature Granulocytes 0.3 % (0-0.5); % Lymphocytes 14.5 % (20.5-51.1); % Monocytes 9.9 % (1.7-9.3); % Neutrophils 71.4 % (42.2-75.2); Absolute Eosinophils 0.2 10^3/uL (0-0.7); Absolute Lymphocytes 0.9 10^3/uL (1.2-3.4); Absolute Monocytes 0.6 10^3/uL (0.1-0.6); Absolute Neutrophils 4.2 10^3/uL (1.4-6.5); Hematocrit 31.3 % (39.0-52.0); Mean Corp Hgb Conc. 31.9 g/dL (33.0-37.0); Mean Corpuscular Hgb 29.2 pg (27.0-31.0); Mean Corpuscular Volume 91.5 fL (80.0-94.0); Mean Platelet Volume 9.8 fL (7.4-10.4); Nucleated Red Blood Cells % 0 % (-); Platelet Count 284 10^3/uL (130-400); Red Blood Cell Count 3.42 10^6/uL (4.70-6.10); Red Cell Dist. Width 17.2 % (11.5-14.5); White Blood Cell Count 5.9 10^3/uL (4.8-10.8)
== END ==
LOC: OLABPV 10:45
PROVIDERS: ATTENDING PHYSICIAN Internal Medicine Hematology & Oncology
DX: D64.9 Anemia, unspecified (principal); D83.9 Common variable immunodeficiency, unspecified
CPT/HCPCS: 36415; 85025

== ENCOUNTER → 2024-02-22 13:48 | Outpatient (REF) | payer OTHER, SELFPAY | LOC: PAVMRI 13:48 | PROVIDERS: ATTENDING PHYSICIAN Internal Medicine Geriatric Medicine | DX: R22.9 Localized swelling, mass and lump, unspecified (principal) | CPT/HCPCS: 73723; A9575 ==

== ENCOUNTER → 2024-03-14 10:40 | Outpatient (REF) | payer OTHER, SELFPAY ==
[2024-03-14 12:09] LABS: % Basophils 0.7 % (0-2); % Eosinophils 3.1 % (0-6); % Immature Granulocytes 0.3 % (0-0.5); % Lymphocytes 16.2 % (20.5-51.1); % Monocytes 7.3 % (1.7-9.3); % Neutrophils 72.4 % (42.2-75.2); Absolute Eosinophils 0.2 10^3/uL (0-0.7); Absolute Lymphocytes 0.9 10^3/uL (1.2-3.4); Absolute Monocytes 0.4 10^3/uL (0.1-0.6); Absolute Neutrophils 4.2 10^3/uL (1.4-6.5); Hematocrit 36.2 % (39.0-52.0); Hemoglobin 11.8 g/dL (13.0-18.0); Mean Corp Hgb Conc. 32.6 g/dL (33.0-37.0); Mean Corpuscular Hgb 30.2 pg (27.0-31.0); Mean Corpuscular Volume 92.6 fL (80.0-94.0); Mean Platelet Volume 10.2 fL (7.4-10.4); Nucleated Red Blood Cells % 0 % (-); Platelet Count 232 10^3/uL (130-400); Red Blood Cell Count 3.91 10^6/uL (4.70-6.10); Red Cell Dist. Width 16.9 % (11.5-14.5); White Blood Cell Count 5.7 10^3/uL (4.8-10.8)
[2024-03-14 12:14] LABS: INR 1.15; PT 14.8 Sec (11.4-14.6)
[2024-03-14 12:16] LABS: ALT (SGPT) 22 U/L (0-50); AST (SGOT) 25 U/L (17-59); Albumin 3.9 g/dl (3.5-5.0); Alkaline Phosphatase 98 U/L (38-126); Blood Urea Nitrogen 43 mg/dl (9-20); Calcium 9.7 mg/dl (8.4-10.2); Carbon Dioxide 28 mmol/L (22-30); Chloride 103 mmol/L (98-107); Glucose 123 mg/dl (70-99); Sodium 141 mmol/L (135-145); Total Bilirubin 0.7 mg/dl (0.2-1.3); Total Protein 6.2 g/dl (6.3-8.2); eGFR 55.88
== END ==
LOC: OLABPV 10:40
PROVIDERS: ATTENDING PHYSICIAN Student in an Organized Health Care Education/Training Program
DX: R22.42 Localized swelling, mass and lump, left lower limb (principal)
CPT/HCPCS: 36415; 80053; 85025; 85610

== ENCOUNTER → 2024-03-21 14:15 | Outpatient (REF) | payer OTHER, SELFPAY | LOC: HWRAD 14:15 | PROVIDERS: ATTENDING PHYSICIAN Internal Medicine Geriatric Medicine | DX: I10 Essential (primary) hypertension (principal); E11.9 Type 2 diabetes mellitus without complications; D64.9 Anemia, unspecified; N18.31 Chronic kidney disease, stage 3a; M25.551 Pain in right hip; E55.9 Vitamin D deficiency, unspecified; I48.0 Paroxysmal atrial fibrillation; G47.33 Obstructive sleep apnea (adult) (pediatric); Q25.5 Atresia of pulmonary artery; I25.10 Atherosclerotic heart disease of native coronary artery without angina pectoris; Z13.89 Encounter for screening for other disorder; N52.9 Male erectile dysfunction, unspecified; C61 Malignant neoplasm of prostate; E04.1 Nontoxic single thyroid nodule; D50.0 Iron deficiency anemia secondary to blood loss (chronic) | CPT/HCPCS: 76536 ==

== ENCOUNTER → 2024-05-02 11:04 | Outpatient (REF) | payer OTHER, SELFPAY ==
[2024-05-02 12:42] LABS: ALT (SGPT) 22 U/L (0-50); AST (SGOT) 24 U/L (17-59); Alkaline Phosphatase 87 U/L (38-126); Blood Urea Nitrogen 39 mg/dl (9-20); Calcium 9.5 mg/dl (8.4-10.2); Carbon Dioxide 26 mmol/L (22-30); Chloride 104 mmol/L (98-107); Glucose 112 mg/dl (70-99); HDL Cholesterol 52 mg/dl; LDL Cholesterol, Calculated 60 mg/dl; Potassium 4.3 mmol/L (3.5-5.1); Sodium 137 mmol/L (135-145); Total Bilirubin 0.8 mg/dl (0.2-1.3); Total Cholesterol 132 mg/dl (50-199); Total Protein 6.1 g/dl (6.3-8.2); Triglyceride 102 mg/dl (10-149); Very Low Density Lipoprotein 20 mg/dl (0-30); eGFR 43.56
[2024-05-02 14:14] LABS: Glycohemoglobin (HgbA1c) 6.6 % (4.0-5.6)
[2024-05-02 14:40] LABS: Microalbumin, Random Urine > 57.0 mg/dl (0.6-1.7)
== END ==
LOC: OLABPV 11:04
PROVIDERS: ATTENDING PHYSICIAN Internal Medicine Endocrinology, Diabetes & Metabolism
DX: E11.40 Type 2 diabetes mellitus with diabetic neuropathy, unspecified (principal); E78.5 Hyperlipidemia, unspecified
CPT/HCPCS: 36415; 80053; 80061; 82043; 82570; 83036

== ENCOUNTER 2024-06-15 14:36 | Emergency (ER) | payer OTHER, SELFPAY ==
[2024-06-15 14:38] VITALS: BP 136/88
[2024-06-15 15:19] LABS: % Basophils 0.3 % (0-2); % Eosinophils 0.6 % (0-6); % Immature Granulocytes 0.4 % (0-0.5); % Lymphocytes 5.5 % (20.5-51.1); % Monocytes 8.2 % (1.7-9.3); Absolute Lymphocytes 0.4 10^3/uL (1.2-3.4); Absolute Monocytes 0.6 10^3/uL (0.1-0.6); Absolute Neutrophils 5.8 10^3/uL (1.4-6.5); Hematocrit 36.3 % (39.0-52.0); Mean Corp Hgb Conc. 33.1 g/dL (33.0-37.0); Mean Corpuscular Hgb 31.1 pg (27.0-31.0); Mean Platelet Volume 10.1 fL (7.4-10.4); Nucleated Red Blood Cells % 0 % (-); Platelet Count 189 10^3/uL (130-400); Red Blood Cell Count 3.86 10^6/uL (4.70-6.10); White Blood Cell Count 6.9 10^3/uL (4.8-10.8)
[2024-06-15 15:37] LABS: ALT (SGPT) 22 U/L (0-50); AST (SGOT) 26 U/L (17-59); Albumin 4.8 g/dl (3.5-5.0); Alkaline Phosphatase 111 U/L (38-126); Blood Urea Nitrogen 32 mg/dl (9-20); Calcium 9.4 mg/dl (8.4-10.2); Carbon Dioxide 24 mmol/L (22-30); Chloride 101 mmol/L (98-107); Glucose 150 mg/dl (70-99); Potassium 3.8 mmol/L (3.5-5.1); Sodium 138 mmol/L (135-145); Total Bilirubin 2.1 mg/dl (0.2-1.3); Total Protein 7.2 g/dl (6.3-8.2); eGFR 55.88
[2024-06-15 15:39] LABS: COVID-19 Antigen Negative (Negative)
== END 2024-06-15 16:54 | disposition other institution (70) ==
LOC: EMR 14:36
PROVIDERS: Physician Assistant; EMERGENCY PHYSICIAN Emergency Medicine; FAMILY PHYSICIAN Internal Medicine Geriatric Medicine
DX: R06.02 Shortness of breath (principal); R05.9 Cough, unspecified
CPT/HCPCS: 71046; 80053; 85025; 87502; 87811

== ENCOUNTER 2024-07-12 12:04 | Outpatient (RCR) | payer OTHER, SELFPAY | END 2024-07-12 23:59 | disposition home or self-care (01) | LOC: RPT 12:04 | PROVIDERS: ATTENDING PHYSICIAN Orthopaedic Surgery Sports Medicine; FAMILY PHYSICIAN Internal Medicine Geriatric Medicine | DX: D48.19 Other specified neoplasm of uncertain behavior of connective and other soft tissue (principal); Z73.6 Limitation of activities due to disability; M62.81 Muscle weakness (generalized); Z98.890 Other specified postprocedural states | CPT/HCPCS: 97110; 97112; 97116; 97162 ==

== ENCOUNTER 2024-08-10 15:08 | Outpatient (RCR) | payer OTHER, SELFPAY | END 2024-08-10 23:59 | disposition home or self-care (01) | LOC: RPT 15:08 | PROVIDERS: ATTENDING PHYSICIAN Orthopaedic Surgery Sports Medicine; FAMILY PHYSICIAN Internal Medicine Geriatric Medicine | DX: D48.19 Other specified neoplasm of uncertain behavior of connective and other soft tissue (principal); Z73.6 Limitation of activities due to disability; M62.81 Muscle weakness (generalized); Z98.890 Other specified postprocedural states | CPT/HCPCS: 97110; 97112; 97530 ==

== ENCOUNTER 2024-08-31 12:50 | Outpatient (RCR) | payer OTHER, SELFPAY | END 2024-08-31 23:59 | disposition home or self-care (01) | LOC: RPT 12:50 | PROVIDERS: ATTENDING PHYSICIAN Orthopaedic Surgery Sports Medicine; FAMILY PHYSICIAN Internal Medicine Geriatric Medicine | DX: D48.19 Other specified neoplasm of uncertain behavior of connective and other soft tissue (principal); M62.81 Muscle weakness (generalized); Z73.6 Limitation of activities due to disability; M25.562 Pain in left knee; Z98.890 Other specified postprocedural states | CPT/HCPCS: 97110; 97112; 97116; 97530 ==

== ENCOUNTER 2024-08-31 23:37 | Inpatient (IN) | payer OTHER, SELFPAY ==
[2024-08-31 19:25] VITALS: BP 144/79; BMI 23.8
[2024-08-31 19:27] VITALS: BP 144/79
[2024-08-31 19:46] LABS: % Basophils 0.5 % (0-2); % Eosinophils 0.7 % (0-6); % Immature Granulocytes 0.2 % (0-0.5); % Monocytes 7.4 % (1.7-9.3); % Neutrophils 82.2 % (42.2-75.2); Absolute Lymphocytes 0.5 10^3/uL (1.2-3.4); Absolute Monocytes 0.4 10^3/uL (0.1-0.6); Absolute Neutrophils 4.7 10^3/uL (1.4-6.5); Hematocrit 34.5 % (39.0-52.0); Hemoglobin 11.8 g/dL (13.0-18.0); Mean Corp Hgb Conc. 34.2 g/dL (33.0-37.0); Mean Corpuscular Hgb 31.9 pg (27.0-31.0); Mean Corpuscular Volume 93.2 fL (80.0-94.0); Mean Platelet Volume 10.6 fL (7.4-10.4); Nucleated Red Blood Cells % 0 % (-); Platelet Count 181 10^3/uL (130-400); Red Cell Dist. Width 14.6 % (11.5-14.5); White Blood Cell Count 5.7 10^3/uL (4.8-10.8)
[2024-08-31] MEDS: DILAUDID 0.5 MG IV ×2 (19:58→22:32)
[2024-08-31 19:59] LABS: ALT (SGPT) 18 U/L (0-50); AST (SGOT) 20 U/L (17-59); Albumin 3.8 g/dl (3.5-5.0); Alkaline Phosphatase 98 U/L (38-126); Blood Urea Nitrogen 45 mg/dl (9-20); Calcium 9.8 mg/dl (8.4-10.2); Carbon Dioxide 24 mmol/L (22-30); Chloride 106 mmol/L (98-107); Estimated Creatinine Clearance 35 ml/min; Glucose 151 mg/dl (70-99); Potassium 4.4 mmol/L (3.5-5.1); Sodium 140 mmol/L (135-145); Total Bilirubin 0.8 mg/dl (0.2-1.3); Total Protein 5.8 g/dl (6.3-8.2); eGFR 40.25
[2024-08-31 20:00] VITALS: BP 118/72
[2024-08-31 20:06] LABS: Erythrocyte Sed Rate 1 mm/hour (0-20)
[2024-08-31 20:14] LABS: C-Reactive Protein < 5.00 mg/L (0.0-10.00)
--- NOTE | 2024-08-31 20:20 | ED.GENMED ---
History of Present Illness
General
Chief Complaint: Musculo-Skeletal Complaint
Source: patient and spouse
Time Seen by Provider: 08/31/24 19:29
History of Present Illness
History of Present Illness:
79-year-old male with past medical history of atrial fibrillation status post cardiac ablation, hypertension, hyperlipidemia, pky-sfeeamw-aniovbthm diabetes, prostate cancer presenting to the ER for evaluation of atraumatic right hip/proximal femur
pain that started around 3 PM today, unable to ambulate secondary to the pain and reports that there was no trauma. Patient is doing physical therapy for his left leg due to a questionably cancerous tumor that he had removed in May but states
he never had any complications with his right leg. He does note a history of 'inflammation' for which he needed to be admitted for previously which feels similar to today's presentation. He denies any focal weakness or numbness, color changes to
the right lower extremity, chest pain or shortness of breath, cough or palpitations or any other concerns. Patient did not take anything for symptoms prior to arrival and states he does not believe the EMS provided him with any medications either.
Past History
Past History
ED Past Medical History: Asthma (Bronchitis), Cancer, HTN, Hypercholesterolemia and NIDDM (last A1c=6.1, FS BSs at home have not been elevated)
ED Past Surgical History: Cardiac, Cholecystectomy, Urological and Other
Social History
Tobacco: Former smoker
Alcohol: Occasional
Drug: None
Personal:
Living: with family
Review of Systems
Review of Systems
All Other Systems: ROS reviewed and negative except as documented in HPI and ROS
Phy Exam
Physical Exam
Physical Exam:
GENERAL: Alert , in no apparent distress
EYE: conjunctiva clear
NECK: Supple, no significant adenopathy.
ENT: o/p clr, mmm.
CARDIAC: Regular rate and rhythm
LUNGS: Clear breath sounds bilaterally, no acute respiratory distress, no wheezes/rales/rhonchi
ABDOMEN: Soft, nontender, nondistended
NEUROLOGICAL: Alert and oriented
SKIN: Warm and dry, skin intact.
MUSCULOSKELETAL: Right lower extremity: No obvious deformity, no noted external rotation of the leg. Patient does allow for some range of motion at the hip but does complain of increased pain while attempting to do so. There is tenderness along
the lateral aspect the hip and into the proximal femur. No tenderness along the distal femur, knee, tib-fib, ankle or foot. Patient does have intact equal pulses bilateral dorsalis pedis and posterior tibialis. Sensation is grossly intact to
light touch.
PSYCH: Normal and appropriate interaction.
Scores
Heart Failure Risk
Heart Failure Risk Score: Not Applicable
Heart Score for Chest Pain Patients
STEMI patient?: Not applicable
Withdrawal Assessment of Alcohol
Withdrawal Assessment Completed?: Not applicable
Course
Orders/Labs/Results
Orders:
Orders
08/31/24 19:38
C-Reactive Protein Urgent
Comment: ADD ON
Complete Blood Count/With Diff Urgent
Comprehensive Metabolic Panel Urgent
Erythrocyte Sed Rate Urgent
Comment: ADD ON
08/31/24 19:45
HYDROmorphone [Dilaudid] 0.5 mg IV NOW STA
CR Femur - Right Min 2 Vw Urgent
Comment:
Reason For Exam: pain, unable to walk
CR Hip - RT w/wo Pel 2-3 Vw* Urgent
Comment:
Reason For Exam: pain, unable to walk
Include a pelvis x-ray?: Yes
08/31/24 19:46
Add On- LAB Urgent
Tests Added?: esr/crp
08/31/24 21:12
CT Pelvis W/o Iv Contrast Urgent
Comment:
Reason For Exam: right thigh/pelvic pain, hx of hematoma
08/31/24 22:25
HYDROmorphone [Dilaudid] 0.5 mg IV NOW STA
08/31/24 23:27
Admit/Transfer Patient As Directed
Co-Sign Provider:
Level of Care: Inpatient admission
Assign to:: Medical/Surgical
Physician / Group: tara
Diagnosis: gluteus muscle tear hematoma
Reason for Hospitalization: gluteus muscle tear hematoma
Expected length of stay greater than two midnights?: Yes
ELOS- Estimated Length of Stay in days: 2
I certify the patient meets the requirements for IP care: Yes
Code Status As Directed
Resuscitation Status: Full Code
PRN Pain Medication Management As Directed
May give lesser potent ordered pain med per pt: Yes
preference::
Protocol:: Medication orders for pain may be administered in a
manner that supports deferring to patient preference
when the pt is:
- Requesting an ordered lesser potent pain medication.
Least to most potent pain medications are defined
as: acetaminophen < NSAID < tramadol < opioids
(morphine, oxycodone, hydromorphone).
- Requesting a lesser dose of the same medication IF
ORDERED.
- Requesting a less intrusive route of administration
if both routes are prescribed by the provider (PO <
IV).
Abnormal Lab Results
08/31/24
19:38
RBC 3.70 L 10^6/uL
(4.70-6.10)
Hgb 11.8 L g/dL
(13.0-18.0)
Hct 34.5 L %
(39.0-52.0)
MCH 31.9 H pg
(27.0-31.0)
RDW 14.6 H %
(11.5-14.5)
MPV 10.6 H fL
(7.4-10.4)
Absolute Lymphs (auto) 0.5 L 10^3/uL
(1.2-3.4)
Neutrophils % 82.2 H %
(42.2-75.2)
Lymphocytes % 9.0 L %
(20.5-51.1)
BUN 45 H mg/dl
(9-20)
Creatinine 1.7 H mg/dL
(0.7-1.3)
Glucose 151 H mg/dl
(70-99)
Total Protein 5.8 L g/dl
(6.3-8.2)
08/31/24 19:38
08/31/24 19:38
Vital Signs
Initial and Last Documented VS:
Initial Vital Signs
Temp Pulse Resp BP Pulse Ox
98.6 F 73 14 144/79 95
08/31/24 19:25 08/31/24 19:25 08/31/24 19:25 08/31/24 19:25 08/31/24 19:25
Last Documented Vital Signs
Temp Pulse Resp BP Pulse Ox
98.6 F 60 13 119/72 95
08/31/24 19:25 08/31/24 21:45 08/31/24 21:45 08/31/24 21:04 08/31/24 21:30
MDM/Problems Addressed
Differential Diagnosis Includes:
Bursitis, arthritis, given no trauma I do have less concern for fracture but given this questionably cancerous lesion on his left leg it is possible patient could have the pathologic fracture, afebrile and no overlying erythema so less concern for
septic joint
MDM/Problems Addressed:
79-year-old male presenting to the ER for evaluation of nontraumatic right sided hip pain. Patient reports he is unable to ambulate or bear any weight. Patient is afebrile and in no acute distress. He does appear mildly uncomfortable however.
Will treat pain with half a milligram of Dilaudid due to patient's pain and reported that this previously. Patient reports that he had to be admitted for similar but states he does not know exactly what the cause was at that time. Based off record
review patient was admitted for a nontraumatic hematoma to the left thigh and pain control for this. Patient is anticoagulated on Eliquis so it is possible he may have a recurring hematoma. Patient may need more advanced imaging other than an
x-ray to assess for this. Will check labs and x-ray imaging to start. Disposition pending.
*Radiology
Radiology exam reviewed: preliminary read by ED provider (No acute fracture) and radiology read reviewed
*Pulse Oximetry
Patient hypoxic: no
*Critical Care Note
Total Time (30-74mins, 75-104mins- exclusive of procedures): Not Applicable
Data Reviewed
Review of Other/Old Records Reveals: Labs, Records and Radiology Studies
Source: patient
Patient Management
Discussion with other providers: Hospitalist
Escalation/DeEscalation of care consider admission/obs:
Patient's x-ray imaging did not yield any pathology but he was complaining of continued pain. Given his history of pelvic/hip hematoma we will obtain CT scan to further evaluate. Additional Dilaudid ordered for pain control. CT scan of the pelvis
shows a right gluteus medius muscle tear with diffuse intramuscular evolving hematoma. I suspect this is the cause for patient's pain. Given his use of Eliquis will admit for hemoglobin trending and monitoring of the hematoma. Will apply ice
packs to the affected area. Hospitalist team was notified and accepts for continued evaluation and treatment.
ED Attending Note
-
Portions of this chart may have been created with voice recognition software.� Occasional wrong word or��sound alike� substitutions may have occurred due to the inherent limitations of voice recognition software.
Discharge Plan
Departure
Patient Disposition: Admit
Date of Disposition: 08/31/24
Time of Disposition: 22:52
Presentation/result/management discussed w/ accepting MD/DO: Hospitalist
Discharge Problem:
Intramuscular hematoma, JONAH (acute kidney injury)
Prescriptions:
No Action
pioglitazone 30 MG tablet
30 mg PO DAILY
cholecalciferol (vitamin D3) 1,000 UNITS tablet
1,000 units PO TID
Invokana 100 MG tablet
100 mg PO DAILY
magnesium oxide 400 MG tablet
400 mg PO DAILY
ferrous gluconate 240 MG tablet
324 mg PO TID
Januvia 100 MG tablet
100 mg PO QPM
coQ10 (ubiquinol) 100 mg Capsule
100 mg PO DAILY Qty: 0
atorvastatin 40 mg Tablet
40 mg PO HS
alpha lipoic acid 600 mg Tablet
600 mg PO DAILY
metformin 1,000 MG tablet
1,000 mg PO BID
cyanocobalamin (vitamin B-12) 1,000 mcg Tablet
3,000 mcg PO DAILY
Eliquis 5 mg Tablet
5 mg PO BID
amlodipine 5 mg tablet
5 mg PO BID
Theragen Tablet
1 tab PO DAILY
triamterene-hydrochlorothiazid 37.5-25 mg Tablet
1 tab PO DAILY
doxazosin 2 mg Tablet
2 mg PO HS
valsartan 160 mg Tablet
160 mg PO BID
sennosides [Senna Laxative] 8.6 mg tablet
17.2 mg PO BIDPRN PRN (Reason: constipation)
polyethylene glycol 3350 [HealthyLax] 17 gram powder in packet
17 g PO BIDPRN PRN (Reason: constipation)
acetaminophen [Tylenol Extra Strength] 500 mg tablet
1,000 mg PO TIDPRN PRN (Reason: mild pain)
Referrals:
Gerry Holman MD [Family Provider] -
Interventions
Interventions:
*Risk Screen - Suicide Last Done: 08/31/24 19:25
*General Assessment Last Done: 08/31/24 19:25
*Neglect/Abuse Screening Last Done: 08/31/24 19:25
*ED- Fall Risk Assessment Last Done: 08/31/24 19:32
*ED COVID-19 Vaccine History Last Done: 08/31/24 19:32
ED-Musculoskeletal Assessment Last Done: 08/31/24 19:33
Discharge Date and Time
Print Language: BENGALI
[2024-08-31 21:04] VITALS: BP 119/72
[2024-08-31 23:00] VITALS: BP 129/76
--- NOTE | 2024-08-31 23:30 | HPS.HSE ---
Family Physician
-
Family Physician: Gerry Holman
Chief Complaint
-
right hip pain
History of Present Illness
79-year-old male past medical history of left thigh hematoma, CAD, hypertension, paroxysmal atrial fibrillation on Eliquis, iron deficiency anemia, hyperlipidemia, diabetes, prostate cancer status post robotic prostatectomy, presenting for
evaluation of right hip/proximal femur pain that started at 3 PM today. He is unable to ambulate secondary to pain and reports no trauma. 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
previously. Denies any focal weakness or numbness or changes of color to the extremity. Denies chest pain or shortness of breath. Denies dizziness.
Patient was admitted in November 2023 for left thigh hematoma. Eliquis was held. Eliquis was held for 2 further days and eventually resumed.
He denies smoking or alcohol use.
Medical History
Past Medical History
Past Medical History: Reports Other (left thigh hematoma, CAD, hypertension, paroxysmal atrial fibrillation on Eliquis, iron deficiency anemia, hyperlipidemia, diabetes, prostate cancer status post robotic prostatectomy, )
Past Surgical History: Reports None
Social History
Tobacco: Non-smoker
Alcohol: None
Drug: None
Family History
Family History: Not pertinent
Allergies / Home Medications
Allergies reflects when Allergies were last updated in [employer].
Home Medications with original date entered in [employer]
Allergy/Medication List:
Allergies
Allergy/AdvReac Type Severity Reaction Status Date / Time
pollen extracts Allergy hayfever Verified 06/15/24 14:38
Home Medications
canagliflozin 100 mg tablet (Invokana) 100 mg PO DAILY Diabetes 05/10/16
cholecalciferol (vitamin D3) 25 mcg (1,000 unit) tablet 1,000 units PO TID Supplement 05/10/16
pioglitazone 30 mg tablet 30 mg PO DAILY Diabetes 05/10/16
magnesium oxide 400 mg (241.3 mg magnesium) tablet 400 mg PO DAILY Constipation 01/11/18
ferrous gluconate 240 mg (27 mg iron) tablet 324 mg PO TID Supplement 11/22/19
sitagliptin phosphate 100 mg tablet (Januvia) 100 mg PO QPM Diabetes 11/22/19
coQ10 (ubiquinol) 100 mg capsule 100 mg PO DAILY Supplement ##0 11/03/22
alpha lipoic acid 600 mg tablet 600 mg PO DAILY Supplement 11/18/22
atorvastatin 40 mg tablet 40 mg PO HS High Cholesterol 11/18/22
metformin 1,000 mg tablet 1,000 mg PO BID Diabetes 11/18/22
cyanocobalamin (vitamin B-12) 1,000 mcg tablet 3,000 mcg PO DAILY Supplement 11/20/23
amlodipine 5 mg tablet 5 mg PO BID Blood Pressure 11/29/23
apixaban 5 mg tablet (Eliquis) 5 mg PO BID Blood Clot Prevention/Tx 11/29/23
acetaminophen 500 mg tablet (Tylenol Extra Strength) 1,000 mg PO TIDPRN PRN mild pain 08/31/24
doxazosin 2 mg tablet 2 mg PO HS 08/31/24
polyethylene glycol 3350 17 gram oral powder packet (HealthyLax) 17 g PO BIDPRN PRN constipation 08/31/24
sennosides 8.6 mg tablet (Senna Laxative) 17.2 mg PO BIDPRN PRN constipation 08/31/24
therapeutic multivitamin 1 tab PO DAILY 08/31/24
triamterene 37.5 mg-hydrochlorothiazide 25 mg tablet 1 tab PO DAILY 08/31/24
valsartan 160 mg tablet 160 mg PO BID 08/31/24
Review of Systems
-
History Source: Patient
A 12 point ROS was completed and negative except as noted: Yes
Constitutional: Reports No Symptoms
EENT: Reports No Symptoms
Respiratory: Reports No Symptoms
Cardiac: Reports No Symptoms
Abdomen/GI: Reports No Symptoms
: Reports No Symptoms
Musculoskeletal: Reports No Symptoms
Skin: Reports No Symptoms
Neurological: Reports No Symptoms
Endocrine: Reports No Symptoms
Hematologic/Lymphatic: Reports No Symptoms
Psych: Reports No Symptoms
Physical Exam
Vital Signs
Vital Signs
Temp Pulse Resp BP Pulse Ox
98.6 F 60 13 119/72 95
08/31/24 19:25 08/31/24 21:45 08/31/24 21:45 08/31/24 21:04 08/31/24 21:30
Physical Exam
General: Well Developed, Well Nourished and No Apparent Distress
HEENT: NormoCephalic, Moist mucous membranes and Atraumatic
Respiratory: Clear
Cardiac: S1/S2 and Regular Rhythm; No Murmur or Rub
GI: Soft, Non Tender, Non Distended and Normal Bowel Sounds; No Organomegaly
Rectal: Deferred by Provider
Musculoskeletal: No Clubbing, No Cyanosis and No Edema
Skin: No Rash
Neuro: Nonfocal/grossly intact
Laboratory Results
-
08/31/24 19:38
08/31/24 19:38
Laboratory Results
Total Bilirubin 0.8 mg/dl (0.2-1.3) 08/31/24 19:38
AST 20 U/L (17-59) 08/31/24 19:38
ALT 18 U/L (0-50) 08/31/24 19:38
Alkaline Phosphatase 98 U/L (38-126) 08/31/24 19:38
Data Reviewed
-
Lab Data: Labs Reviewed by me
Old Records: Reviewed
Impression/Plan
-
IMPRESSION:
PLAN:
# Right gluteus medius muscle tear with diffuse intramuscular evolving hematoma
- Pelvic CT shows right gluteus medius muscle tear diffuse intramuscular evolving hematoma, no fracture or dislocation
- Hemoglobin stable at 11.8
-Hold Eliquis
- Tylenol, Dilaudid for pain
- Ice pack applied
# JONAH likely secondary to nephrotoxics/prerenal
-Creatinine of 1.7 from 1.3
- Gentle IV fluids
- Hold triamterene, hydrochlorothiazide, valsartan
History of left thigh hematoma
Paroxysmal atrial fibrillation
- Hold Eliquis
CAD
Essential hypertension
- Continue amlodipine
- Hold valsartan
- Continue doxazosin
Iron deficiency anemia
- Continue ferrous gluconate
Hyperlipidemia
- Continue statin
Type 2 diabetes
- Continue Invokana, Januvia, pioglitazone
- Hold metformin
Prostate cancer status post robotic prostatectomy
Full code
DVT prophylaxis�SCDs
Regular diet
[2024-09-01] VITALS: BP 116/69
--- NOTE | 2024-09-01 01:00 | PTCARENOTE ---
Pt. arrived from E.D., AAO x 3, vs stable, transferred from stretcher to bed, call [place] within reach.
[2024-09-01 01:21] VITALS: BP 151/81
[2024-09-01 01:23] VITALS: BMI 22.8
[2024-09-01] MEDS: NSS 1000 IV ×2 (01:31→14:52)
[2024-09-01] MEDS: DILAUDID 0.5 MG IV ×4 (01:32→20:18)
[2024-09-01 07:00] VITALS: BP 123/70
[2024-09-01 07:48] LABS: % Basophils 0.6 % (0-2); % Eosinophils 2.5 % (0-6); % Immature Granulocytes 0.2 % (0-0.5); % Monocytes 9.7 % (1.7-9.3); Absolute Eosinophils 0.1 10^3/uL (0-0.7); Absolute Lymphocytes 0.8 10^3/uL (1.2-3.4); Absolute Monocytes 0.5 10^3/uL (0.1-0.6); Absolute Neutrophils 3.7 10^3/uL (1.4-6.5); Hematocrit 29.8 % (39.0-52.0); Mean Corp Hgb Conc. 33.6 g/dL (33.0-37.0); Mean Corpuscular Hgb 31.6 pg (27.0-31.0); Mean Corpuscular Volume 94.3 fL (80.0-94.0); Mean Platelet Volume 10.4 fL (7.4-10.4); Nucleated Red Blood Cells % 0 % (-); Platelet Count 164 10^3/uL (130-400); Red Blood Cell Count 3.16 10^6/uL (4.70-6.10); Red Cell Dist. Width 14.6 % (11.5-14.5); White Blood Cell Count 5.1 10^3/uL (4.8-10.8)
[2024-09-01] MEDS: VITAMIN B-12 3000 MCG PO (08:33)
[2024-09-01] MEDS: VITAMIN D3 (cholecalciferol) 25 MCG PO ×3 (08:33→20:35)
[2024-09-01] MEDS: THERAGRAN 1 TABLET PO (08:33)
[2024-09-01] MEDS: MAG-TAB SR 84 MG PO (08:33)
[2024-09-01] MEDS: NORVASC 5 MG PO ×2 (08:33→20:33)
[2024-09-01] MEDS: FARXIGA 10 MG PO (08:33)
[2024-09-01] MEDS: FEOSOL 325 MG PO ×3 (08:33→20:35)
[2024-09-01] MEDS: ACTOS 30 MG PO (08:33)
[2024-09-01 08:42] LABS: ALT (SGPT) 16 U/L (0-50); AST (SGOT) 17 U/L (17-59); Albumin 3.3 g/dl (3.5-5.0); Alkaline Phosphatase 84 U/L (38-126); Blood Urea Nitrogen 41 mg/dl (9-20); Carbon Dioxide 25 mmol/L (22-30); Chloride 109 mmol/L (98-107); Estimated Creatinine Clearance 39 ml/min; Glucose 112 mg/dl (70-99); Potassium 3.7 mmol/L (3.5-5.1); Sodium 142 mmol/L (135-145); Total Bilirubin 0.8 mg/dl (0.2-1.3); Total Protein 5.2 g/dl (6.3-8.2); eGFR 46.77
--- NOTE | 2024-09-01 09:50 | W.PN.HOSP.TC ---
Today's Communication/Plan
-
CTA
consult vascular/ortho/renal
increase IVF to 100ml/hr
trend H&H
pain control
hold eliquis
Assessment / Plan
Assessment / Plan
pt is an 79 year old male
Right gluteus medius muscle tear with diffuse intramuscular evolving hematoma exacerbated by Eliquis (had tumor removed from left knee and has been rehabbing from that)--Pelvic CT shows right gluteus medius muscle tear diffuse intramuscular evolving
hematoma, no fracture or dislocation--HGB drop for 11.8 to 10.0--consult vascular/ortho--plan for CTA recommended, ordered--cont IVF and consult renal--agree with HOLDING eliquis--pain control
JONAH likely secondary to acute bleeding/meds--cont IVF--consult renal, rod now with CTA ordered-- Hold triamterene/hydrochlorothiazide, valsartan, metformin--baseline creat 1.3--admission 1.7, down to 1.5)
History of left thigh hematoma--traumatic--in November 2023--also on Eliquis at that time as well
Paroxysmal atrial fibrillation- Hold Eliquis
CAD--noted
Essential hypertension- Continue amlodipine- Hold valsartan- Continue doxazosin
Iron deficiency anemia- Continue ferrous gluconate
Hyperlipidemia- Continue statin
Type 2 diabetes- Continue Invokana, Januvia, pioglitazone- Hold metformin
Prostate cancer status post robotic prostatectomy
code status--Full code
DVT proph�SCDs
would hold on PT/OT until acute bleeding ruled out
Anticipated Discharge: > 48 hours
Subjective/Interval History
-
Date of Service: September 01, 2024
pt c/o right sided buttock pain
Objective Data
-
Labs:
Laboratory Results
09/01/24 09/01/24
07:14 07:15
WBC 5.1
Hgb 10.0 L
Hct 29.8 L
Plt Count 164
Sodium 142
Potassium 3.7
Chloride 109 H
Carbon Dioxide 25
BUN 41 H
Creatinine 1.5 H
Glucose 112 H
Calcium 9.0
Total Bilirubin 0.8
AST 17
ALT 16
Alkaline Phosphatase 84
Vital Signs:
max temp for 24 hours
08/31/24
19:25
Temp 98.6 F
Vital Signs
Temp Pulse Resp BP Pulse Ox
97.9 F 67 20 123/70 95
09/01/24 07:00 09/01/24 07:00 09/01/24 07:00 09/01/24 07:00 09/01/24 07:00
I&O
08/31/24 09/01/24 09/02/24
06:59 06:59 06:59
Intake Total 570 / 570
Balance 570 / 570
Review of Systems
-
All other systems: Reviewed and negative
Musculoskeletal: Reports Other (right buttock pain)
Physical Exam
-
General: Well Developed, Well Nourished and No Apparent Distress
HEENT: Normocephalic and Atraumatic
Respiratory: Clear to Auscultation; Negative Wheezes
Cardiac: Regular Rhythm and S1/S2; Negative Murmur
GI: Soft, Nontender, Nondistended and Normal Bowel Sounds
Musculoskeletal: Other (firm tender right buttock wrapping around to right hip area)
Neuro: Awake and Alert
[2024-09-01 13:30] LABS: Hematocrit 31.8 % (39.0-52.0); Hemoglobin 10.7 g/dL (13.0-18.0)
[2024-09-01 13:31] LABS: Hematocrit 31.9 % (39.0-52.0); Hemoglobin 10.7 g/dL (13.0-18.0)
--- NOTE | 2024-09-01 14:58 | W.CON.NEPH ---
Consultation
-
Date/Time Consultation Requested: 09/01/24 0949
Date/Time Consultation Performed: 09/01/24 1410
Requesting Provider: Charly Bacon
Performing Provider: Maik Yoon
Reason for Consultation: JONAH
Medical History
-
Chief Complaint: Rt hip pain
History of Present Illness:
79-year-old male past medical history of left thigh hematoma 2023, CAD, hypertension on multiple meds Valsartan,Triamterene-HCTZ, Amlodipine, cardura, paroxysmal atrial fibrillation on Eliquis, iron deficiency anemia, hyperlipidemia statin,,
diabetes on metformin pioglitazone, Invokana, Januvia, prostate cancer status post robotic prostatectomy, presenting for evaluation of right hip/proximal femur pain that started at 3 PM on 08/31 while he was sitting. He was doing physical therapy
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 In ER CT with out contrast noted Right gluteus medius tear with diffuse hematoma. His cr on admit was at 1.7 and this am was at 1.5. His baseline cr 1.3. He is
now required to have CTA since with concern of JONAH nephrology consulted. Denies chest pain or shortness of breath. [place] little unstable yesterday but feels fine now. No hypotension. no dizziness. No Abd pain or dysuria.
Past Medical History
left thigh hematoma, CAD, hypertension, paroxysmal atrial fibrillation on Eliquis, iron deficiency anemia, hyperlipidemia, diabetes, prostate cancer status post robotic prostatectomy,
Social History
Tobacco: Non-Smoker
Alcohol: None
Living: With Family
Family History
Family History: Not Pertinent
Allergies / Home Medications
Allergy/AdvReac Type Severity Reaction Status Date / Time
pollen extracts Allergy hayfever Verified 06/15/24 14:38
�Medication �Instructions �Recorded �Confirmed �Type
canagliflozin 100 mg tablet 100 mg PO DAILY Diabetes 05/10/16 08/31/24 History
(Invokana)
cholecalciferol (vitamin D3) 25 1,000 units PO TID Supplement 05/10/16 08/31/24 History
mcg (1,000 unit) tablet
pioglitazone 30 mg tablet 30 mg PO DAILY Diabetes 05/10/16 08/31/24 History
magnesium oxide 400 mg (241.3 mg 400 mg PO DAILY Constipation 01/11/18 08/31/24 History
magnesium) tablet
ferrous gluconate 240 mg (27 mg 324 mg PO TID Supplement 11/22/19 08/31/24 History
iron) tablet
sitagliptin phosphate 100 mg 100 mg PO QPM Diabetes 11/22/19 08/31/24 History
tablet (Januvia)
coQ10 (ubiquinol) 100 mg capsule 100 mg PO DAILY Supplement ##0 11/03/22 08/31/24 History
alpha lipoic acid 600 mg tablet 600 mg PO DAILY Supplement 11/18/22 08/31/24 History
atorvastatin 40 mg tablet 40 mg PO HS High Cholesterol 11/18/22 08/31/24 History
metformin 1,000 mg tablet 1,000 mg PO BID Diabetes 11/18/22 08/31/24 History
cyanocobalamin (vitamin B-12) 3,000 mcg PO DAILY Supplement 11/20/23 08/31/24 History
1,000 mcg tablet
amlodipine 5 mg tablet 5 mg PO BID Blood Pressure 11/29/23 08/31/24 History
apixaban 5 mg tablet (Eliquis) 5 mg PO BID Blood Clot 11/29/23 08/31/24 History
Prevention/Tx
acetaminophen 500 mg tablet 1,000 mg PO TIDPRN PRN mild pain 08/31/24 08/31/24 History
(Tylenol Extra Strength)
doxazosin 2 mg tablet 2 mg PO HS 08/31/24 08/31/24 History
polyethylene glycol 3350 17 gram 17 g PO BIDPRN PRN constipation 08/31/24 08/31/24 History
oral powder packet (HealthyLax)
sennosides 8.6 mg tablet (Senna 17.2 mg PO BIDPRN PRN constipation 08/31/24 08/31/24 History
Laxative)
therapeutic multivitamin 1 tab PO DAILY 08/31/24 08/31/24 History
triamterene 37.5 1 tab PO DAILY 08/31/24 08/31/24 History
mg-hydrochlorothiazide 25 mg tablet
valsartan 160 mg tablet 160 mg PO BID 08/31/24 08/31/24 History
Review of Systems
-
All other systems: Negative unless noted
Physical Exam
Vital Signs
Vital Signs
Temp Pulse Resp BP Pulse Ox
97.9 F 67 20 123/70 95
09/01/24 07:00 09/01/24 07:00 09/01/24 07:00 09/01/24 07:00 09/01/24 07:00
Lab Results
WBC 5.1 10^3/uL (4.8-10.8) 09/01/24 07:15
RBC 3.16 10^6/uL (4.70-6.10) L 09/01/24 07:15
Plt Count 164 10^3/uL (130-400) 09/01/24 07:15
Sodium 142 mmol/L (135-145) 09/01/24 07:14
Potassium 3.7 mmol/L (3.5-5.1) 09/01/24 07:14
Chloride 109 mmol/L (98-107) H 09/01/24 07:14
Carbon Dioxide 25 mmol/L (22-30) 09/01/24 07:14
BUN 41 mg/dl (9-20) H 09/01/24 07:14
Creatinine 1.5 mg/dL (0.7-1.3) H 09/01/24 07:14
eGFR 46.77 09/01/24 07:14
Glucose 112 mg/dl (70-99) H 09/01/24 07:14
Calcium 9.0 mg/dl (8.4-10.2) 09/01/24 07:14
Albumin 3.3 g/dl (3.5-5.0) L 09/01/24 07:14
Physical Exam
General: Awake, Alert, Oriented, AOx3, No Distress and Nontoxic
HEENT: EOMI, Anicteric, Conjunctivae Clear, Facial Symmetry and Neck Supple
Respiratory: Clear, Normal Excursion and Nonlabored Respirations
Cardiac: S1/S2 and Regular Rate/Rhythm
Breast: Deferred by me
Abdomen: Soft, Nontender and Nondistended
Musculoskeletal: No Cyanosis and No Edema
Skin: No Rash, Warm and Dry
Neuro: Nonfocal/Grossly Intact
Psych: Mood/afflect pleasant, Insight/judgement good and Appropriate
Data Reviewed
-
Radiology: Report Reviewed by me and Discussed with Patient
Labs: Labs Reviewed by me and Discussed with Patient
Assessment/Plan
-
IMP:
Right gluteus medius muscle tear with diffuse intramuscular evolving hematoma
JONAH
History of left thigh hematoma--traumatic--in November 2023
Paroxysmal atrial fibrillation
CAD
Essential hypertension
Iron deficiency anemia
Hyperlipidemia
Type 2 diabetes
Prostate cancer status post robotic prostatectomy
Plan:
A/w Right gluteal tear and hematoma
JONAH-possible prerenal with above
check UA, U fena and follow bladder scan
cont IVF specially he had contrast exposure has intermediate risk of H[place]IL[place]
no evidence of arterial bleed on CTA
avoid nephrotoxins, hold triamterene, HCTZ and ARB
Bp stable with out hypotension
follow h/h , prn transfusion
d/w pt in detail
[2024-09-01 15:00] VITALS: BP 121/71
--- NOTE | 2024-09-01 16:26 | CON.ORTHO ---
Consultation
-
Date/Time Consultation Requested: 09/01/2024 @ 9:47 AM
Date/Time Consultation Performed: 09/01/2024 @ 3:45 PM
Requesting Provider: Dr. Cristin King
Performing Provider: Mike Aldana PA-C for Dr. Parish Cano MD
Reason for Consultation: Right Hip Pain
Consultation - Orthopedics
History
Orthopedic Surgery Note
CC: Right Hip Pain x Tuesday08/31/2024
HPI: The patient is a 79-year-old male with a past medical history significant for CAD, Hypertension, Paroxysmal atrial fibrillation on Eliquis 5 mg twice daily, Iron deficiency anemia, Hyperlipidemia, Type II Diabetes, Prostate cancer status post
robotic prostatectomy, and history of left large intramuscular hematoma in the lateral hip and anterolateral upper thigh (admitted to [facility] November 2023) who returned to [facility] Emergency Department yesterday evening with
complaints of right posterolateral hip pain that started around 4 PM yesterday 08/31/2024. He reports acute onset of pain without any known traumatic injury or fall responsible for onset of symptoms; he is unsure if he may have slightly twisted his
right hip awkwardly, reporting that he may have 'felt something.' He reports significant pain to the posterolateral hip that will occasionally radiate distally towards his knee with weightbearing activities and movement. He denies any associated
numbness or tingling. He denies any groin pain. He reports that he is currently doing physical therapy (last session yesterday) for his left knee due to a questionably cancerous tumor that was removed this past May 16; reports that both hips
felt like they were 'worked out' after PT yesterday. He denies any weakness or color change to the right lower extremity. Previous MRI of the right hip obtained at [facility] in 2021 revealed a lobular complex signal interposed between the
right gluteus medius and yamile muscles, favored to represent a small chronic hematoma. This admission, he underwent Pelvis CT, which revealed a right gluteus medius medius muscle tear with diffuse intramuscular evolving hematoma; no evidence for
fracture, dislocation, osteolytic or blastic lesion, periosteal reaction, bony destruction/erosion, or joint effusion. Eliquis is currently on hold. Orthopedic surgery was consulted for treatment recommendations.
PMH/PSH: CAD, Hypertension, Paroxysmal atrial fibrillation on Eliquis 5 mg BID, Iron deficiency anemia, Hyperlipidemia, Type II Diabetes, Prostate cancer status post robotic prostatectomy, and History of left large intramuscular hematoma in the
lateral hip and anterolateral upper thigh (admitted to [facility] November 2023).
Medications: Reviewed.
Family History: Family history was reviewed. Noncontributory.
Social history: Nonsmoker, no illicit drugs.
Exam
General appearance: Pleasant. No acute distress.
Head: Normocephalic/atraumatic
Nose: No lesions or discharge.
Skin: No obvious rashes or open wounds
Lungs: No audible wheezing, no cough or sputum production
Musculoskeletal:
Physical examination of the right lower extremity, with attention to the right hip, reveals generalized edema about the posterolateral hip with skin intact. No erythema, warmth, or ecchymosis appreciated at this time. (+) Tenderness to palpation
about the right greater trochanter and gluteal musculature. Posterolateral hip pain with external rotation to 20 degrees and abduction to 30 degrees. No significant discomfort with internal rotation to 20 degrees or hip flexion to 110 degrees. He
is able to maintain a straight leg raise against gravity. Knee ROM intact. There is mild weakness noted with resisted hip abduction. Calf is soft and nontender to palpation. Thigh is soft and compressible. Sensation is intact to light touch.
Able to plantarflex and dorsiflex right ankle. NVI distally.
Imaging:
CR Femur - RIGHT Min 2 Vw; CR Hip - RT w/wo Pel 2-3 Vw* was obtained at [facility] on 08/31/2024 and was made available for my review today. Findings/impression: There is no fracture or dislocation, bony destruction, or erosive change.
Minor right hip joint space narrowing without significant hypertrophic productive changes. The cortical margins and trabecular pattern of the femur are intact. No fracture. No osteolytic or blastic lesion.
CT Pelvis W/o Iv Contrast was obtained at [facility] on 08/31/2024 and was made available for my review today. Findings: No fracture or dislocation. No osteolytic or blastic lesion. No periosteal reaction. No bony destruction or erosion.
No apparent joint effusion. There is heterogeneous lobular confluence soft tissue thickening along the course of the right gluteus medius musculature, obliterating the intramuscular fat planes, with diffuse enlargement of the muscle extending
towards the greater tuberosity. There is a large amount of heterogeneous confluence and attenuation about the lateral and posterior right greater trochanter, most likely reflecting gluteus medius muscle tear with diffuse intramuscular involving
hematoma. Incidental note is otherwise made of severe muscle atrophy with fatty replacement involving the gluteus minimus muscle, bilaterally, and left gluteus medius muscle. Left gluteus yamile intramuscular lipoma measuring 5 cm. Within the
visceral pelvis, numerous phlebolith calcifications. Evidence of previous inguinal hernia repair with repair coils present. Lower lumbar facet arthrosis with minor grade 1 spondylolisthesis of L4 relative to L5. Impression: Right gluteus medius
muscle tear with diffuse intramuscular evolving hematoma. No fracture or dislocation. No osteolytic or blastic lesion. No periosteal reaction. No bony destruction or erosion. No apparent joint effusion.
CT Pelvis Angio W/wo Iv Contra was obtained at [facility] on 09/01/2024 and was made available for my review today. Findings/impression: Hematoma lateral to the right hip measuring approximately 8.4 x 4.8 x 9.8 cm. Intramuscular hematoma
extend superiorly with asymmetric expansion and increased attenuation of the right gluteus medius muscle. No CT evidence for active arterial contrast extravasation to indicate active bleeding on this exam.
Assessment: 79-year-old male with a PMH significant for PAF on Eliquis 5 mg twice daily and history of left large intramuscular hematoma in the lateral hip and anterolateral upper thigh (admitted to [facility] November 2023) presenting to ED
with acute onset of right posterolateral hip pain; no fall or traumatic event reported. Work-up thus far revealing a RIGHT gluteus medius muscle tear with diffuse intramuscular hematoma on CT scan; CTA negative for active bleeding.
Plan:
- Based upon the patient's complaints, clinical exam, and advanced imaging findings, signs and symptoms at this time most consistent with gluteal muscle tear and hematoma.
- No indications for surgical intervention from Orthopedic perspective.
- Based upon findings thus far, recommend supportive measures with rest, ice therapy, pain control per primary team, and PT/OT as tolerated.
- Discussed the option of proceeding with MRI of the right hip for further evaluation, however patient would like to hold on this at this current time and further discuss with . Recommendations discussed with Dr. King.
- Orthopedic surgery will continue to follow.
Allergies / Home Medications
Allergy/AdvReac Type Severity Reaction Status Date / Time
pollen extracts Allergy hayfever Verified 06/15/24 14:38
�Medication �Instructions �Recorded
canagliflozin 100 mg tablet 100 mg PO DAILY Diabetes 05/10/16
(Invokana)
cholecalciferol (vitamin D3) 25 1,000 units PO TID Supplement 05/10/16
mcg (1,000 unit) tablet
pioglitazone 30 mg tablet 30 mg PO DAILY Diabetes 05/10/16
magnesium oxide 400 mg (241.3 mg 400 mg PO DAILY Constipation 01/11/18
magnesium) tablet
ferrous gluconate 240 mg (27 mg 324 mg PO TID Supplement 11/22/19
iron) tablet
sitagliptin phosphate 100 mg 100 mg PO QPM Diabetes 11/22/19
tablet (Januvia)
coQ10 (ubiquinol) 100 mg capsule 100 mg PO DAILY Supplement ##0 11/03/22
alpha lipoic acid 600 mg tablet 600 mg PO DAILY Supplement 11/18/22
atorvastatin 40 mg tablet 40 mg PO HS High Cholesterol 11/18/22
metformin 1,000 mg tablet 1,000 mg PO BID Diabetes 11/18/22
cyanocobalamin (vitamin B-12) 3,000 mcg PO DAILY Supplement 11/20/23
1,000 mcg tablet
amlodipine 5 mg tablet 5 mg PO BID Blood Pressure 11/29/23
apixaban 5 mg tablet (Eliquis) 5 mg PO BID Blood Clot 11/29/23
Prevention/Tx
acetaminophen 500 mg tablet 1,000 mg PO TIDPRN PRN mild pain 08/31/24
(Tylenol Extra Strength)
doxazosin 2 mg tablet 2 mg PO HS 08/31/24
polyethylene glycol 3350 17 gram 17 g PO BIDPRN PRN constipation 08/31/24
oral powder packet (HealthyLax)
sennosides 8.6 mg tablet (Senna 17.2 mg PO BIDPRN PRN constipation 08/31/24
Laxative)
therapeutic multivitamin 1 tab PO DAILY 08/31/24
triamterene 37.5 1 tab PO DAILY 08/31/24
mg-hydrochlorothiazide 25 mg tablet
valsartan 160 mg tablet 160 mg PO BID 08/31/24
Vital Signs / Lab Results
Temp Pulse Resp BP Pulse Ox
97.9 F 77 20 121/71 95
09/01/24 15:00 09/01/24 15:00 09/01/24 15:00 09/01/24 15:00 09/01/24 15:00
09/01/24 07:14
[2024-09-01] MEDS: JANUVIA 100 MG PO (17:09)
[2024-09-01 17:27] LABS: Urine Albumin 2+ (Neg - Trace); Urine Bilirubin Negative (Negative); Urine Character Clear (Clear); Urine Color Yellow; Urine Glucose 4+ (Negative); Urine Ketone Negative (Negative); Urine Leukocyte Negative (Negative); Urine Nitrite Negative (Negative); Urine Occult Blood 2+ (Negative); Urine Urobilinogen Negative (Neg - 1+)
[2024-09-01 17:39] LABS: Urine Squamous Cell 16-20 /LPF (Few)
[2024-09-01 17:40] LABS: Urine Bacteria Few (Negative); Urine White Cell 0-2 /HPF (0-5)
[2024-09-01 17:48] LABS: Protein/creatinine Ratio 0.7; Urine Protein 35 mg/dl; Urine Sodium 65 mmol/L (30-90)
[2024-09-01 20:27] VITALS: BP 123/73
[2024-09-01] MEDS: LIPITOR 40 MG PO (20:40)
[2024-09-01] MEDS: CARDURA 2 MG PO (20:43)
[2024-09-01 20:48] LABS: Hematocrit 30.5 % (39.0-52.0); Hemoglobin 10.6 g/dL (13.0-18.0)
[2024-09-01 23:04] VITALS: BP 123/78
[2024-09-02] MEDS: NSS 1000 IV ×2 (02:18→15:16)
[2024-09-02 03:00] LABS: Hematocrit 30.2 % (39.0-52.0); Hemoglobin 10.3 g/dL (13.0-18.0)
[2024-09-02 07:00] VITALS: BP 138/72
[2024-09-02] MEDS: ACTOS 30 MG PO (08:40)
[2024-09-02] MEDS: FARXIGA 10 MG PO (08:40)
[2024-09-02] MEDS: THERAGRAN 1 TABLET PO (08:41)
[2024-09-02] MEDS: VITAMIN B-12 3000 MCG PO (08:41)
[2024-09-02] MEDS: FEOSOL 325 MG PO ×3 (08:41→22:16)
[2024-09-02] MEDS: VITAMIN D3 (cholecalciferol) 25 MCG PO ×3 (08:42→22:17)
[2024-09-02] MEDS: NORVASC 5 MG PO ×2 (08:42→20:05)
[2024-09-02] MEDS: MAG-TAB SR 84 MG PO (08:43)
[2024-09-02 08:44] LABS: Hematocrit 30.9 % (39.0-52.0); Hematocrit 31.5 % (39.0-52.0); Hemoglobin 10.6 g/dL (13.0-18.0); Hemoglobin 10.7 g/dL (13.0-18.0); Mean Corpuscular Hgb 32.2 pg (27.0-31.0); Mean Corpuscular Volume 94.9 fL (80.0-94.0); Mean Platelet Volume 10.3 fL (7.4-10.4); Platelet Count 163 10^3/uL (130-400); Red Blood Cell Count 3.32 10^6/uL (4.70-6.10); Red Cell Dist. Width 14.5 % (11.5-14.5); White Blood Cell Count 4.6 10^3/uL (4.8-10.8)
[2024-09-02 08:47] LABS: ALT (SGPT) 17 U/L (0-50); AST (SGOT) 19 U/L (17-59); Albumin 3.5 g/dl (3.5-5.0); Alkaline Phosphatase 92 U/L (38-126); Blood Urea Nitrogen 30 mg/dl (9-20); Calcium 8.8 mg/dl (8.4-10.2); Carbon Dioxide 23 mmol/L (22-30); Chloride 109 mmol/L (98-107); Estimated Creatinine Clearance 49 ml/min; Glucose 119 mg/dl (70-99); Magnesium 1.9 mg/dl (1.6-2.3); Potassium 3.7 mmol/L (3.5-5.1); Sodium 141 mmol/L (135-145); Total Protein 5.4 g/dl (6.3-8.2); eGFR > 60.00
--- NOTE | 2024-09-02 10:15 | CON.VAS ---
Consultation
Consultation Request
Date/Time Consultation Performed: 09/02/2024 1016
Requesting Provider: Hospitalist
Performing Provider: Adis Conley MD dictated by NATHALIA Musa
Reason for Consultation: Gluteal hematoma
Medical History
-
Chief Complaint: Right hip/proximal femur pain
History of Present Illness:
This is an 79-year-old male with significant past medical history for atrial fibrillation, coronary artery disease, prostate cancer, diabetes, hypertension, iron deficiency anemia, hyperlipidemia, and left thigh hematoma who presented to outside
hospital on 09/01/2024 with reports of worsening right hip/proximal femur pain. At time of vascular assessment gluteal pain has improved per patient. CT angio reviewed demonstrating no active bleeding.
Past Medical History
Past Medical History: Arrhythmias (Atrial fibrillation), CAD, Cancer (Prostate), HTN, NIDDM and Other (left thigh hematoma, iron deficiency anemia, hyperlipidemia)
Social History
Tobacco: Non-Smoker
Alcohol: None
Drug: None
Allergies / Home Medications
Allergy/AdvReac Type Severity Reaction Status Date / Time
pollen extracts Allergy hayfever Verified 06/15/24 14:38
�Medication �Instructions �Recorded �Confirmed �Type
canagliflozin 100 mg tablet 100 mg PO DAILY Diabetes 05/10/16 08/31/24 History
(Invokana)
cholecalciferol (vitamin D3) 25 1,000 units PO TID Supplement 05/10/16 08/31/24 History
mcg (1,000 unit) tablet
pioglitazone 30 mg tablet 30 mg PO DAILY Diabetes 05/10/16 08/31/24 History
magnesium oxide 400 mg (241.3 mg 400 mg PO DAILY Constipation 01/11/18 08/31/24 History
magnesium) tablet
ferrous gluconate 240 mg (27 mg 324 mg PO TID Supplement 11/22/19 08/31/24 History
iron) tablet
sitagliptin phosphate 100 mg 100 mg PO QPM Diabetes 11/22/19 08/31/24 History
tablet (Januvia)
coQ10 (ubiquinol) 100 mg capsule 100 mg PO DAILY Supplement ##0 11/03/22 08/31/24 History
alpha lipoic acid 600 mg tablet 600 mg PO DAILY Supplement 11/18/22 08/31/24 History
atorvastatin 40 mg tablet 40 mg PO HS High Cholesterol 11/18/22 08/31/24 History
metformin 1,000 mg tablet 1,000 mg PO BID Diabetes 11/18/22 08/31/24 History
cyanocobalamin (vitamin B-12) 3,000 mcg PO DAILY Supplement 11/20/23 08/31/24 History
1,000 mcg tablet
amlodipine 5 mg tablet 5 mg PO BID Blood Pressure 11/29/23 08/31/24 History
apixaban 5 mg tablet (Eliquis) 5 mg PO BID Blood Clot 11/29/23 08/31/24 History
Prevention/Tx
acetaminophen 500 mg tablet 1,000 mg PO TIDPRN PRN mild pain 08/31/24 08/31/24 History
(Tylenol Extra Strength)
doxazosin 2 mg tablet 2 mg PO HS Blood Pressure 08/31/24 08/31/24 History
polyethylene glycol 3350 17 gram 17 g PO BIDPRN PRN constipation 08/31/24 08/31/24 History
oral powder packet (HealthyLax)
sennosides 8.6 mg tablet (Senna 17.2 mg PO BIDPRN PRN constipation 08/31/24 08/31/24 History
Laxative)
therapeutic multivitamin 1 tab PO DAILY Supplement 08/31/24 08/31/24 History
triamterene 37.5 1 tab PO DAILY Blood Pressure 08/31/24 08/31/24 History
mg-hydrochlorothiazide 25 mg tablet
valsartan 160 mg tablet 160 mg PO BID Blood Pressure 08/31/24 08/31/24 History
Review of Systems
-
History Source: Patient
All other systems: Negative unless noted
Musculoskeletal: Reports Other (right hip/proximal femur pain and gluteal pain that has now improved from admission)
Physical Exam
Vital Signs
Temp Pulse Resp BP Pulse Ox
97.9 F 68 18 128/76 94
09/03/24 07:00 09/03/24 07:00 09/03/24 07:00 09/03/24 07:00 09/03/24 07:00
Physical Exam
Musculoskeletal: Other (no swelling in leg, + PT pulses)
Assessment / Plan
-
Assessment: 79-year-old male with gluteal hematoma per CT scan
Plan:
No vascular invention required
Will defer to ortho
Call with questions
--- NOTE | 2024-09-02 10:16 | W.PN.VS ---
Today's Communication / Plan
-
no vasc intervention
Assessment/Plan
-
gluteal hematoma
cta reviewed - no active bleeding
no vasc intervention
will defer to ortho
call with questions
Subjective Data
-
Date of Service: September 02, 2024
gluteal pain improved
Objective Data
-
Vital Signs
Temp Pulse Resp BP Pulse Ox
98 F 75 17 138/72 95
09/02/24 07:00 09/02/24 07:00 09/02/24 07:00 09/02/24 07:00 09/02/24 07:00
Intake and Output
09/01/24 09/02/24 09/03/24
06:59 06:59 06:59
Intake Total 570 / 570 1120 / 1120
Output Total 650 / 650
Balance 570 / 570 470 / 470
Intake:
Oral fluids 120 / 120 120 / 120
IV fluids (Total) 450 / 450 1000 / 1000
Output:
Urine, Voided 650 / 650
Other:
Number of approximated MODERATE 1
amounts of urine
How many times incontinent 3
SATURATED amount urine
Lab Results
09/02/24 08:25
09/02/24 08:25
Calcium 8.8 mg/dl (8.4-10.2) 09/02/24 08:25
Magnesium 1.9 mg/dl (1.6-2.3) 09/02/24 08:25
Total Bilirubin 1.0 mg/dl (0.2-1.3) 09/02/24 08:25
AST 19 U/L (17-59) 09/02/24 08:25
ALT 17 U/L (0-50) 09/02/24 08:25
Alkaline Phosphatase 92 U/L (38-126) 09/02/24 08:25
Total Protein 5.4 g/dl (6.3-8.2) L 09/02/24 08:25
Albumin 3.5 g/dl (3.5-5.0) 09/02/24 08:25
Physical Exam
-
+ PT pulses
no swelling in leg
--- NOTE | 2024-09-02 12:04 | W.PN.HOSP.TC ---
Today's Communication/Plan
-
PT/OT
hold Eliquis
consult cards for anticoagulation opinion
Assessment / Plan
Assessment / Plan
pt is an 79 year old male
Right gluteus medius muscle tear with diffuse intramuscular hematoma exacerbated by Eliquis (had tumor removed from left knee and has been rehabbing from that)(also had left thigh hematoma 11/2023)--Pelvic CT shows right gluteus medius muscle tear
diffuse intramuscular evolving hematoma, no fracture or dislocation--HGB drop for 11.8 to 10.0--apprec vascular/ortho, no plans for surgery of any kind-- CTA without active bleeding--cont IVF and apprec renal--agree with HOLDING eliquis--pain control
JONAH likely secondary to acute bleeding/meds--cont IVF--apprec renal-- Hold triamterene/hydrochlorothiazide, valsartan, metformin--baseline creat 1.3--admission 1.7, down to 1.2
History of left thigh hematoma--traumatic--in November 2023--also on Eliquis at that time as well
Paroxysmal atrial fibrillation- Hold Eliquis--consult cards--Watchman might be best but will defer to cards
CAD--noted
Essential hypertension- Continue amlodipine- Hold valsartan- Continue doxazosin
Iron deficiency anemia- Continue ferrous gluconate
Hyperlipidemia- Continue statin
Type 2 diabetes- Continue Invokana, Januvia, pioglitazone- Hold metformin
Prostate cancer status post robotic prostatectomy
code status--Full code
DVT proph�SCDs
PT/OT
Anticipated Discharge: 24 - 48 hours
Subjective/Interval History
-
Date of Service: September 02, 2024
pt without pain on right hip/butt cheek
Objective Data
-
Labs:
Laboratory Results
09/02/24 09/02/24 09/02/24
02:52 08:25 08:25
WBC 4.6 L
Hgb 10.3 L 10.6 L 10.7 L
Hct 30.2 L 30.9 L
Plt Count
Sodium
Potassium
Chloride
Carbon Dioxide
BUN
Creatinine
Glucose
Calcium
Total Bilirubin
AST
ALT
Alkaline Phosphatase
09/02/24
08:25
WBC
Hgb
Hct 31.5 L
Plt Count 163
Sodium 141
Potassium 3.7
Chloride 109 H
Carbon Dioxide 23
BUN 30 H
Creatinine 1.2
Glucose 119 H
Calcium 8.8
Total Bilirubin 1.0
AST 19
ALT 17
Alkaline Phosphatase 92
Vital Signs:
max temp for 24 hours
09/01/24
20:27
Temp 98.7 F
Vital Signs
Temp Pulse Resp BP Pulse Ox
98 F 75 17 138/72 95
09/02/24 07:00 09/02/24 07:00 09/02/24 07:00 09/02/24 07:00 09/02/24 07:00
I&O
09/01/24 09/02/24 09/03/24
06:59 06:59 06:59
Intake Total 570 / 570 1120 / 1120
Output Total 650 / 650
Balance 570 / 570 470 / 470
Review of Systems
-
All other systems: Reviewed and negative
Physical Exam
-
General: Well Developed, Well Nourished and No Apparent Distress
HEENT: Normocephalic and Atraumatic
Respiratory: Clear to Auscultation; Negative Wheezes or Rhonchi
Cardiac: Regular Rhythm and S1/S2; Negative Murmur
GI: Soft, Nontender, Nondistended and Normal Bowel Sounds
Musculoskeletal: No Clubbing, No Cyanosis and No Edema
Neuro: Awake
Psych: Calm
--- NOTE | 2024-09-02 12:20 | W.PN.UPDATE ---
Update Note
Progress Note Update
Patient seen and evaluated by Orthopedic surgery this afternoon. He endorses improvement in symptoms since evaluation yesterday and today denies any pain about the gluteal region and posterolateral hip.
PE: Physical examination of the right lower extremity, with attention to the right hip, does not reveal any obvious deformity, erythema, warmth, or ecchymosis. Skin is intact. Mild tenderness to palpation about the right posterolateral hip and
gluteal musculature. Mild discomfort with external rotation to 20 degrees and abduction to 30 degrees. No pain with internal rotation to 20 degrees and hip flexion to 110 degrees. He is able to maintain a straight leg raise against gravity. Knee
ROM intact. Thigh is soft and compressible. Calf is soft and nontender to palpation. Sensation is intact to light touch. Able to plantarflex and dorsiflex right ankle. NVI distally.
Plan:
- Based upon the patient's complaints, clinical exam, and advanced imaging findings, signs and symptoms at this time remain consistent with right gluteus medius muscle tear with diffuse intramuscular hematoma exacerbated by Eliquis use. The patient
denies any subjective complaints of pain today.
- No indications for surgical intervention from Orthopedic perspective.
- Recommend supportive measures with rest, ice therapy, pain control per primary team, and PT/OT as tolerated.
- Orthopedic surgery will sign off at this time. Please reengage with any further questions or concerns.
[2024-09-02 15:00] VITALS: BP 131/79
--- NOTE | 2024-09-02 15:17 | CON.CAR ---
Consultation
Consultation Request
Date/Time Consultation Requested: September 02, 2024
Date/Time Consultation Performed: September 02, 2024
Requesting Provider: Hospitalist
Performing Provider: Andree
Reason for Consultation: Right gluteal hematoma
Medical History
-
Chief Complaint: Right gluteal hematoma
History of Present Illness:
79-year-old male who presents with acute fall and right gluteal hematoma. He had been rehabbing his left knee which had a synovial mass which was removed and currently his Eliquis is being held. He was on Eliquis at our June 14, 2024 office
visit. Prior pulmonary vein isolation procedure in 2022 and he has been maintaining sinus rhythm symptomatically and via ECG in our office in May. He was regular on examination today and I did order an ECG to document rhythm. He has
significant pain in the right gluteal region has been evaluated by vascular surgery and by orthopedic surgery and he will be managed nonoperatively. He also carries a history of hypertension diabetes and hyperlipidemia.
Past Medical History
Past Medical History: Arrhythmias and NIDDM
Social History
Tobacco: Non-Smoker
Alcohol: None
Drug: None
Personal:
Living: With Family
Employment: Retired
Family History
Family History: Reviewed & Not Pertinent
Allergies / Home Medications
Allergy/AdvReac Type Severity Reaction Status Date / Time
pollen extracts Allergy hayfever Verified 06/15/24 14:38
�Medication �Instructions �Recorded �Confirmed �Type
canagliflozin 100 mg tablet 100 mg PO DAILY Diabetes 05/10/16 08/31/24 History
(Invokana)
cholecalciferol (vitamin D3) 25 1,000 units PO TID Supplement 05/10/16 08/31/24 History
mcg (1,000 unit) tablet
pioglitazone 30 mg tablet 30 mg PO DAILY Diabetes 05/10/16 08/31/24 History
magnesium oxide 400 mg (241.3 mg 400 mg PO DAILY Constipation 01/11/18 08/31/24 History
magnesium) tablet
ferrous gluconate 240 mg (27 mg 324 mg PO TID Supplement 11/22/19 08/31/24 History
iron) tablet
sitagliptin phosphate 100 mg 100 mg PO QPM Diabetes 11/22/19 08/31/24 History
tablet (Januvia)
coQ10 (ubiquinol) 100 mg capsule 100 mg PO DAILY Supplement ##0 11/03/22 08/31/24 History
alpha lipoic acid 600 mg tablet 600 mg PO DAILY Supplement 11/18/22 08/31/24 History
atorvastatin 40 mg tablet 40 mg PO HS High Cholesterol 11/18/22 08/31/24 History
metformin 1,000 mg tablet 1,000 mg PO BID Diabetes 11/18/22 08/31/24 History
cyanocobalamin (vitamin B-12) 3,000 mcg PO DAILY Supplement 11/20/23 08/31/24 History
1,000 mcg tablet
amlodipine 5 mg tablet 5 mg PO BID Blood Pressure 11/29/23 08/31/24 History
apixaban 5 mg tablet (Eliquis) 5 mg PO BID Blood Clot 11/29/23 08/31/24 History
Prevention/Tx
acetaminophen 500 mg tablet 1,000 mg PO TIDPRN PRN mild pain 08/31/24 08/31/24 History
(Tylenol Extra Strength)
doxazosin 2 mg tablet 2 mg PO HS Blood Pressure 08/31/24 08/31/24 History
polyethylene glycol 3350 17 gram 17 g PO BIDPRN PRN constipation 08/31/24 08/31/24 History
oral powder packet (HealthyLax)
sennosides 8.6 mg tablet (Senna 17.2 mg PO BIDPRN PRN constipation 08/31/24 08/31/24 History
Laxative)
therapeutic multivitamin 1 tab PO DAILY Supplement 08/31/24 08/31/24 History
triamterene 37.5 1 tab PO DAILY Blood Pressure 08/31/24 08/31/24 History
mg-hydrochlorothiazide 25 mg tablet
valsartan 160 mg tablet 160 mg PO BID Blood Pressure 08/31/24 08/31/24 History
Review of Systems
-
All other systems: Negative unless noted
Respiratory: No Symptoms
Cardiac: No Symptoms
Musculoskeletal: Joint Pain and Muscle Pain
Physical Exam
Vital Signs
Temp Pulse Resp BP Pulse Ox
98 F 75 17 138/72 95
09/02/24 07:00 09/02/24 07:00 09/02/24 07:00 09/02/24 07:00 09/02/24 07:00
Lab Results
09/02/24 08:25
09/02/24 08:25
Physical Exam
General: Well Developed, Well Nourished, No Apparent Distress and Pain
HEENT: Normocephalic, Anicteric and Atraumatic
Respiratory: Clear
Cardiac: S1/S2, Regular Rhythm and Murmur (No murmur)
Breast: Deferred by me
GI: Soft, Non Tender and Non Distended
Rectal: Deferred by Provider
Musculoskeletal: Other (Right gluteal pain)
Skin: Warm and Dry
Neuro: Awake, Alert and Oriented
Hematologic/Lymphatic: No Lymphadenopathy
Psych: Calm
Impression / Plan
-
Impression:
Acute right gluteal hematoma from fall
History of left hip large intramuscular hematoma in November 2023
Recent left knee synovial mass removal
History of persistent atrial fibrillation
History of pulmonary vein isolation and left atrial posterior wall isolation in 2022
History of PVI in 2019
History of left atrial tachycardia
History of hypertension
History of renal stone
History of anemia
History of dyslipidemia
History of type 2 diabetes
History of prostate cancer
Recommend:
He now has recurrent intramuscular hematomas on oral anticoagulation and would be reasonable to consider alternative such as a watchman implantation as an outpatient
Please check EKG-I ordered
-We will continue to follow with you. We will arrange a visit with Dr. Rene Patel in the office to discuss watchman implantation. He will require a 3 to 4-month course of oral anticoagulation and we would not consider watchman implantation
in the acute setting. We typically would perform a pre-Watchman CT scan to demonstrate candidacy for implant and would initiate oral anticoagulation at least 4 weeks prior to device implant. It would be reasonable to withhold oral anticoagulation
at this time as long as EKG demonstrates sinus rhythm.
- Trend hemoglobin
Data Reviewed
-
CT Scan: Report Reviewed by me
Labs: Labs Reviewed by me
Old Records: Reviewed
--- NOTE | 2024-09-02 16:17 | W.PN.NEPH.PH ---
Today's Communication / Plan
-
labs in am
Assessment/Plan
-
IMP:
Right gluteus medius muscle tear with diffuse intramuscular evolving hematoma
JONAH
History of left thigh hematoma--traumatic--in November 2023
Paroxysmal atrial fibrillation
CAD
Essential hypertension
Iron deficiency anemia
Hyperlipidemia
Type 2 diabetes
Prostate cancer status post robotic prostatectomy
Plan:
A/w Right gluteal tear and hematoma
JONAH-possible prerenal, cr better at 1.2
mild microhematuria-chronic, U PCR 700mg/gm of cr
follow bladder scan
wean off IVF if po intake is adequate
no evidence of arterial bleed on CTA, no surgical intervention per surg
avoid nephrotoxins, hold triamterene, HCTZ and ARB-likely resume when cr remains baseline
Bp stable with out hypotension
follow h/h -stable
d/w pt
labs in am
-
-
Date of Service: September 02, 2024
CC / HPI / ROS
-
Chief Complaint:
JONAH
History of Present Illness:
cr better at 1.2
k normal , hb stable 10.7
Review of Systems:
no cp or sob
gluteal pain controlled
Labs
-
Labs:
WBC 4.6 10^3/uL (4.8-10.8) L 09/02/24 08:25
RBC 3.32 10^6/uL (4.70-6.10) L 09/02/24 08:25
Hgb 10.6 g/dL (13.0-18.0) L 09/02/24 08:25
Hgb 10.7 g/dL (13.0-18.0) L 09/02/24 08:25
Hct 30.9 % (39.0-52.0) L 09/02/24 08:25
Hct 31.5 % (39.0-52.0) L 09/02/24 08:25
Plt Count 163 10^3/uL (130-400) 09/02/24 08:25
Sodium 141 mmol/L (135-145) 09/02/24 08:25
Potassium 3.7 mmol/L (3.5-5.1) 09/02/24 08:25
Chloride 109 mmol/L (98-107) H 09/02/24 08:25
Carbon Dioxide 23 mmol/L (22-30) 09/02/24 08:25
BUN 30 mg/dl (9-20) H 09/02/24 08:25
Creatinine 1.2 mg/dL (0.7-1.3) 09/02/24 08:25
eGFR > 60.00 09/02/24 08:25
Glucose 119 mg/dl (70-99) H 09/02/24 08:25
Calcium 8.8 mg/dl (8.4-10.2) 09/02/24 08:25
Albumin 3.5 g/dl (3.5-5.0) 09/02/24 08:25
Physical Exam
-
Vital Signs:
Vital Signs
Temp Pulse Resp BP Pulse Ox
98 F 75 17 138/72 95
09/02/24 07:00 09/02/24 07:00 09/02/24 07:00 09/02/24 07:00 09/02/24 07:00
Cardiovascular:: Regular rate and rhythm
Respiratory:: Bilateral: CTA
Lung Excursion:: Normal
Abdomen:: Nontender and Soft
Extremity Edema:: None: Bilateral:
Gomez Catheter: No
[2024-09-02] MEDS: JANUVIA 100 MG PO (17:37)
[2024-09-02 19:53] VITALS: BP 144/78
[2024-09-02 22:15] VITALS: BP 134/83
[2024-09-02] MEDS: CARDURA 2 MG PO (22:16)
[2024-09-02] MEDS: LIPITOR 40 MG PO (22:17)
[2024-09-03] MEDS: NSS 1000 IV (00:59)
--- NOTE | 2024-09-03 06:31 | PTCARENOTE ---
Patient requesting to wear incontinence brief that he supplied from home. Applied brief and advised patient to notify staff when wet. He will continue to use urinal as well.
[2024-09-03 07:00] VITALS: BP 128/76
[2024-09-03] MEDS: ACTOS 30 MG PO (08:22)
[2024-09-03] MEDS: FARXIGA 10 MG PO (08:23)
[2024-09-03] MEDS: VITAMIN B-12 3000 MCG PO (08:23)
[2024-09-03] MEDS: THERAGRAN 1 TABLET PO (08:24)
[2024-09-03] MEDS: MAG-TAB SR 84 MG PO (08:25)
[2024-09-03] MEDS: VITAMIN D3 (cholecalciferol) 25 MCG PO ×3 (08:25→22:41)
[2024-09-03] MEDS: FEOSOL 325 MG PO ×3 (08:26→22:41)
[2024-09-03] MEDS: NORVASC 5 MG PO ×2 (08:28→20:12)
[2024-09-03 09:27] LABS: Hematocrit 29.5 % (39.0-52.0); Hemoglobin 10.1 g/dL (13.0-18.0); Mean Corp Hgb Conc. 34.2 g/dL (33.0-37.0); Mean Corpuscular Hgb 31.9 pg (27.0-31.0); Mean Corpuscular Volume 93.1 fL (80.0-94.0); Mean Platelet Volume 10.2 fL (7.4-10.4); Platelet Count 158 10^3/uL (130-400); Red Blood Cell Count 3.17 10^6/uL (4.70-6.10); Red Cell Dist. Width 14.5 % (11.5-14.5); White Blood Cell Count 3.9 10^3/uL (4.8-10.8)
[2024-09-03 09:33] VITALS: BP 155/87; PULSE 69; O2SAT 95
[2024-09-03 09:34] VITALS: BP 155/87; PULSE 69; O2SAT 95
[2024-09-03 09:54] LABS: Blood Urea Nitrogen 22 mg/dl (9-20); Calcium 8.5 mg/dl (8.4-10.2); Carbon Dioxide 23 mmol/L (22-30); Chloride 111 mmol/L (98-107); Estimated Creatinine Clearance 53 ml/min; Glucose 196 mg/dl (70-99); Magnesium 1.8 mg/dl (1.6-2.3); Potassium 3.7 mmol/L (3.5-5.1); Sodium 140 mmol/L (135-145); eGFR > 60.00
--- NOTE | 2024-09-03 11:06 | W.PN.CARDCBS ---
Addendum entered and electronically signed by Miguel A Tamayo MD 09/03/24 15:22:
79-year-old man admitted with gluteal hematoma after a fall following rehab for left knee surgery. Eliquis had been held.
He offers no new complaints, does not feel ready to go home today
PMH: Paroxysmal atrial fibrillation, maintaining sinus rhythm after PVI, hypertension, diabetes, history of prostate cancer
Outpatient meds amlodipine atorvastatin doxazosin Eliquis Invokana Januvia magnesium, pioglitazone, triamterene HCT, valsartan
Current meds: Eliquis is on hold
128/76, pulse 68, resp rate 18, sats 94% distress, lungs are relatively clear, regular rate and rhythm, JVD okay, not much edema, right gluteal hematoma
Hemoglobin 10.1, platelets are 158, BUN and creatinine are 22 and 1.1, potassium is 3.7
ECG sinus rhythm with occasional PVC, first-degree AV block, PACs
Impression:
Right gluteal hematoma
Prior soft tissue hematoma 2023
Paroxysmal atrial fibrillation status post PVI x 2, with no recent clinical recurrences
Recent resection left knee synovial mass
Type 2 diabetes
[id number] score of 4
Plan:
From a cardiac standpoint, he seems stable.
He remains in sinus rhythm. Eliquis is currently on hold.
He has an appointment with electrophysiology after discharge to discuss watchman.
Plan will be to discharge him without restarting Eliquis.
We discussed whether or not it would be deutsch to perform outpatient telemetry monitoring.
This would be reasonable but is not mandatory. He states he had very limited awareness of A-fib in the past.
We will apply a 2-week Bardy at discharge. This may help facilitate decision making at follow-up
Original Note:
Today's Communication / Plan
-
-continue to hold Eliquis
-telemetry monitoring
-arranging for outpt consult for Watchman
Impression / Plan
-
Impression:
Acute right gluteal hematoma from fall
History of left hip large intramuscular hematoma in November 2023
Recent left knee synovial mass removal
History of persistent atrial fibrillation
History of pulmonary vein isolation and left atrial posterior wall isolation in 2022
History of PVI in 2019
History of left atrial tachycardia
History of hypertension
History of renal stone
History of anemia
History of dyslipidemia
History of type 2 diabetes
History of prostate cancer
Recommend:
-He now has recurrent intramuscular hematomas on oral anticoagulation and would be reasonable to consider alternative such as a watchman implantation as an outpatient
-continue to hold Eliquis
-no evidence of arterial bleed on CTA, no surgical intervention per surg
-Hgb in stable range, today 10.1
-EKG 09/02/2024: NSR first degree AVB, PACs, PVCs
-please place on telemetry so we can monitor for afib off anticoagulation
-We will arrange a visit with Dr. Rene Patel in the office to discuss watchman implantation. He will require a 3 to 4-month course of oral anticoagulation and we would not consider watchman implantation in the acute setting. We typically
would perform a pre-Watchman CT scan to demonstrate candidacy for implant and would initiate oral anticoagulation at least 4 weeks prior to device implant. It would be reasonable to withhold oral anticoagulation at this time as long as EKG
demonstrates sinus rhythm
Progress Note - Tire Molder
Subjective
Date of Service: September 03, 2024
Hemoglobin remained stable.
Maintaining sinus rhythm
Denies shortness of breath, lightheadedness, dizziness, palpitations, chest pain
Objective
Labs:
09/03/24 09:05
09/03/24 09:05
Labs
Hgb 10.1 g/dL (13.0-18.0) L 09/03/24 09:05
Hct 29.5 % (39.0-52.0) L 09/03/24 09:05
Plt Count 158 10^3/uL (130-400) 09/03/24 09:05
Sodium 140 mmol/L (135-145) 09/03/24 09:05
Potassium 3.7 mmol/L (3.5-5.1) 09/03/24 09:05
BUN 22 mg/dl (9-20) H 09/03/24 09:05
Creatinine 1.1 mg/dL (0.7-1.3) 09/03/24 09:05
Glucose 196 mg/dl (70-99) H 09/03/24 09:05
Vital Signs and I&O:
Vital Signs
Temp Pulse Resp BP Pulse Ox
97.9 F 68 18 128/76 94
09/03/24 07:00 09/03/24 07:00 09/03/24 07:00 09/03/24 07:00 09/03/24 07:00
Vital Signs
Temp Pulse Resp BP Pulse Ox
97.9 F 68 18 128/76 94
09/03/24 07:00 09/03/24 07:00 09/03/24 07:00 09/03/24 07:00 09/03/24 07:00
Intake & Output
09/01/24 09/02/24 09/03/24 09/04/24
06:59 06:59 06:59 06:59
Intake Total 570 / 570 1120 / 1120 660 / 660
Output Total 650 / 650 1025 / 1025
Balance 570 / 570 470 / 470 -365 / -365
Physical Exam
Physical Exam
GEN: No distress, awake, Ox3
HEENT: supple, anicteric, mmm
LUNGS: CTA, no wheezes/rales
CV: Reg, S1/S2, 1/6 syst LSB, no murmur
ABD: soft, BS+, NT/ND
EXT: Trace ankle edema B/L
NEURO: Gross non-focal
SKIN: No rash
--- NOTE | 2024-09-03 13:31 | W.PN.HOSP.TC ---
Addendum entered and electronically signed by Cristin King MD 09/03/24 17:56:
I saw and evaluated the patient independently. I reviewed the resident�s note and agree with findings and plan as documented by Dr. Schmitz.
GENERAL: well developed, well nourished, male in no apparent distress
HEENT: NC/AT
HEART: regular rate and rhythm, +S1, +S2
LUNGS : clear to auscultation bilaterally
ABDOM: soft, nontender, nondistended, + bowel sounds
EXT: no cyanosis, clubbing, or edema--right hip/buttock feeling better overall
NEUROLOGIC: grossly intact
Right gluteus medius muscle tear with diffuse intramuscular hematoma exacerbated by Eliquis (had tumor removed from left knee and has been rehabbing from that)(also had left thigh hematoma 11/2023)--Pelvic CT shows right gluteus medius muscle tear
diffuse intramuscular evolving hematoma, no fracture or dislocation--HGB drop for 11.8 to 10.0--apprec vascular/ortho, no plans for surgery of any kind-- CTA without active bleeding--stop IVF and apprec renal--agree with HOLDING eliquis and NOT
discharging on it--pain control
JONAH likely secondary to acute bleeding/meds--stop IVF--apprec renal-- Hold triamterene/hydrochlorothiazide, valsartan, metformin--baseline creat 1.3--admission 1.7, down to 1.1
History of left thigh hematoma--traumatic--in November 2023--also on Eliquis at that time as well
Paroxysmal atrial fibrillation- Hold Eliquis--apprec cards--Watchman might be best but will defer to cards
CAD--noted
Essential hypertension- Continue amlodipine- restart valsartan- Continue doxazosin
Iron deficiency anemia- Continue ferrous gluconate
Hyperlipidemia- Continue statin
Type 2 diabetes- Continue Invokana, Januvia, pioglitazone- restart metformin
Prostate cancer status post robotic prostatectomy
code status--Full code
DVT proph�SCDs
d/c in AM
Original Note:
Today's Communication/Plan
-
Plan for discharge to [facility], will reach out to cardiology first
Resume ARB, HCTZ, metformin at discharge. BMP in one week.
Continue to hold Eliquis at discharge
Assessment / Plan
Assessment / Plan
Impression
Right gluteus medius muscle tear with diffuse intramuscular hematoma
JONAH
History of left thigh hematoma
Paroxysmal atrial fibrillation
History of CAD
Essential hypertension
ALYSSA
Hyperlipidemia
Type 2 diabetes
Prostate cancer s/p post robotic prostatectomy
Plan
Right gluteus medius muscle tear with diffuse intramuscular hematoma exacerbated by Eliquis
Pelvis CT shows right gluteus medius muscle tear with intramuscular evolving hematoma. No fracture/dislocation
Had a history of left knee tumor removal and has been in PT
Apprec Vascular and orthopedics surgery
No plans for surgery right now
CTA shows without active bleeding
HOLDING Eliquis at discharge until seen by starter cup powder mixer for Watchman discussion
JONAH likely secondary to acute bleeding/meds
Cre 1.1 improved, will resume HCTZ, triamterene ARB
History of left thigh hematoma seen
in November 2023
Was on Eliquis at that time
Paroxysmal atrial fibrillation
Continue to hold Eliquis at discharge
Cardiology on board
Plan outpatient Watchman discussion for stroke prevention
Hx of CAD-- noted
Essential hypertension-
Continue amlodipine-
Resume valsartan-- creat 1.1
Continue doxazosin
Iron deficiency anemia
Continue ferrous gluconate
Hyperlipidemia
Continue statin
Type 2 diabetes
Continue Invokana, Januvia, pioglitazone
resume metformin
Prostate cancer status post robotic prostatectomy
code status--Full code
DVT proph�SCDs
PT/OT
Anticipated Discharge: Today
Subjective/Interval History
-
Date of Service: September 03, 2024
No overnight events
Objective Data
-
Labs:
Laboratory Results
09/03/24
09:05
WBC 3.9 L
Hgb 10.1 L
Hct 29.5 L
Plt Count 158
Sodium 140
Potassium 3.7
Chloride 111 H
Carbon Dioxide 23
BUN 22 H
Creatinine 1.1
Glucose 196 H
Calcium 8.5
Vital Signs:
Vital Signs
Temp Pulse Resp BP Pulse Ox
97.9 F 68 18 128/76 94
09/03/24 07:00 09/03/24 07:00 09/03/24 07:00 09/03/24 07:00 09/03/24 07:00
I&O
09/02/24 09/03/24 09/04/24
06:59 06:59 06:59
Intake Total 1120 / 1120 660 / 660
Output Total 650 / 650 1025 / 1025
Balance 470 / 470 -365 / -365
Review of Systems
-
All other systems: Reviewed and negative
Data Reviewed
-
CT Scan: Report Reviewed by me and Discussed with Physician
Labs: Labs Reviewed by me and Discussed with Physician
--- NOTE | 2024-09-03 14:57 | W.PN.NEPH.PH ---
Today's Communication / Plan
-
wean off IVF
Assessment/Plan
-
IMP:
Right gluteus medius muscle tear with diffuse intramuscular evolving hematoma
JONAH
History of left thigh hematoma--traumatic--in November 2023
Paroxysmal atrial fibrillation
CAD
Essential hypertension
Iron deficiency anemia
Hyperlipidemia
Type 2 diabetes
Prostate cancer status post robotic prostatectomy
Plan:
A/w Right gluteal tear and hematoma
JONAH-possible prerenal, cr better at 1.1
mild microhematuria-chronic, U PCR 700mg/gm of cr -f/u with PCP, nephro if needed
follow bladder scan
wean off IVF
no evidence of arterial bleed on CTA, no surgical intervention per surg
avoid nephrotoxins, hold triamterene, HCTZ and ARB-likely resume when cr remains baseline
Bp stable with out hypotension
follow h/h -stable
d/w pt
will s/o, call with ?s
-
-
Date of Service: September 03, 2024
CC / HPI / ROS
-
Chief Complaint:
JONAH
History of Present Illness:
cr better at 1.1
k normal , hb stable 10.1
Review of Systems:
no cp or sob
gluteal pain controlled
Labs
-
Labs:
WBC 3.9 10^3/uL (4.8-10.8) L 09/03/24 09:05
RBC 3.17 10^6/uL (4.70-6.10) L 09/03/24 09:05
Hgb 10.1 g/dL (13.0-18.0) L 09/03/24 09:05
Hct 29.5 % (39.0-52.0) L 09/03/24 09:05
Plt Count 158 10^3/uL (130-400) 09/03/24 09:05
Sodium 140 mmol/L (135-145) 09/03/24 09:05
Potassium 3.7 mmol/L (3.5-5.1) 09/03/24 09:05
Chloride 111 mmol/L (98-107) H 09/03/24 09:05
Carbon Dioxide 23 mmol/L (22-30) 09/03/24 09:05
BUN 22 mg/dl (9-20) H 09/03/24 09:05
Creatinine 1.1 mg/dL (0.7-1.3) 09/03/24 09:05
eGFR > 60.00 09/03/24 09:05
Glucose 196 mg/dl (70-99) H 09/03/24 09:05
Calcium 8.5 mg/dl (8.4-10.2) 09/03/24 09:05
Albumin 3.5 g/dl (3.5-5.0) 09/02/24 08:25
Physical Exam
-
Vital Signs:
Vital Signs
Temp Pulse Resp BP Pulse Ox
97.9 F 68 18 128/76 94
09/03/24 07:00 09/03/24 07:00 09/03/24 07:00 09/03/24 07:00 09/03/24 07:00
Cardiovascular:: Regular rate and rhythm
Respiratory:: Bilateral: CTA
Lung Excursion:: Normal
Abdomen:: Nontender and Soft
Extremity Edema:: None: Bilateral:
Gomez Catheter: No
[2024-09-03 15:00] VITALS: BP 142/76
--- NOTE | 2024-09-03 15:57 | CM ---
Patient seen at bedside with physician. Patient states that he lives with family in his [place] apartment with family. Patient PCP is Dr. Holman and he uses the [facility] on [address]. Patient plan is to go home with outpatient therapy to
follow. Patient stated that he does not anticipate any VN needs. IMM completed and signed form placed on chart. Patient for discharge home today. CM will continue to follow for discharge planning needs.
Plan;home with follow up to outpatient therapy.
[2024-09-03] MEDS: JANUVIA 100 MG PO (17:01)
[2024-09-03] MEDS: NSS IV ×2 (18:17)
[2024-09-03 19:00] VITALS: BP 139/76
[2024-09-03] MEDS: GLUCOPHAGE PO ×3 (19:35→19:37)
[2024-09-03] MEDS: DIOVAN 160 MG PO (20:12)
[2024-09-03 22:40] VITALS: BP 154/84
[2024-09-03] MEDS: LIPITOR 40 MG PO (22:41)
[2024-09-03] MEDS: CARDURA 2 MG PO (22:41)
[2024-09-04 03:40] VITALS: BP 136/76
[2024-09-04 07:00] VITALS: BP 128/86
[2024-09-04] MEDS: FARXIGA 10 MG PO (09:28)
[2024-09-04] MEDS: GLUCOPHAGE 1000 MG PO (09:28)
[2024-09-04] MEDS: MAG-TAB SR 84 MG PO (09:28)
[2024-09-04] MEDS: ACTOS 30 MG PO (09:28)
[2024-09-04] MEDS: FEOSOL 325 MG PO (09:29)
[2024-09-04] MEDS: DIOVAN 160 MG PO (09:29)
[2024-09-04] MEDS: NORVASC 5 MG PO (09:29)
[2024-09-04] MEDS: VITAMIN D3 (cholecalciferol) 25 MCG PO (09:29)
[2024-09-04] MEDS: VITAMIN B-12 3000 MCG PO (09:30)
[2024-09-04] MEDS: THERAGRAN 1 TABLET PO (09:30)
[2024-09-04 11:00] VITALS: BP 124/84
--- NOTE | 2024-09-04 11:51 | W.PN.CARDCBS ---
Addendum entered and electronically signed by Cuong Elena MD 09/04/24 12:36:
I saw and examined the patient.
The [employer] or PA's note was reviewed and I agree with the note.
Comment: General: Well developed, well nourished in NAD.
Neck: Supple, no JVD, HJR, carotids +2 B/L, no bruits bilaterally.
Heart: Non displaced PMI, RRR, no murmurs, No S3, S4, no rubs.
Lungs: Clear to auscultation bilaterally, no wheeze, rhonchi, rubs bilaterally,
normal expiratory phase.
Extremities: No clubbing, cyanosis or edema bilaterally.
Neuro: Grossly nonfocal, awake, alert and oriented x3.
Stable cardiology status for discharge. Hold off on Eliquis for now will schedule outpatient evaluation for watchman. Will arrange monitor prior to office visit
Original Note:
Today's Communication / Plan
-
Cardiology f/u arranged
Would not resume Eliquis for now, will follow up in the office and if patient is a candidate for Watchman then will restart Eliquis in anticipation of watchman procedure
Impression / Plan
-
PCP: Dr. Holman
Card: Dr. Rene Patel
Impression:
Acute right gluteal hematoma from fall
History of left hip large intramuscular hematoma in November 2023
Recent left knee synovial mass removal
Persistent Afib
PVI in 2019
h/o PVI and LAPW ablation 2022
Paroxysmal left atrial tachycardia
HTN
Hyperlipidemia
DM 2
h/o renal stone
h/o anemia
h/o prostate cancer
Recommend:
-Admitted with recurrent intramuscular hematomas on Eliquis 5 mg BID (age 79, Cre 1.2 on 09/04/24, but was 1.7 on admission 08/31/24). Eliquis remains on hold
-No evidence of arterial bleed on CTA, no surgical intervention per vascular surgery
-Will evaluated for watchman as an outpatient. He will require a 3 to 4-month course of OAC. We typically would perform a pre-Watchman CT scan to demonstrate candidacy for implant and would initiate OAC at least 4 weeks prior to device implant. It
would be reasonable to withhold oral anticoagulation at this time as long as tele demonstrates sinus rhythm
-Continue to hold Eliquis
-Hgb was 10.1 and stable on 09/03/24. Labs pending for me 09/04/24
-Tele reviewed by ut 09/04/24 and remains in SR
HPI: 79-year-old male who presents with acute fall and right gluteal hematoma. He had been rehabbing his left knee which had a synovial mass which was removed and currently his Eliquis is being held. He was on Eliquis at our June 14, 2024
office visit. Prior pulmonary vein isolation procedure in 2022 and he has been maintaining sinus rhythm symptomatically and via ECG in our office in May. He was regular on examination today and I did order an ECG to document rhythm. He has
significant pain in the right gluteal region has been evaluated by vascular surgery and by orthopedic surgery and he will be managed nonoperatively. He also carries a history of hypertension diabetes and hyperlipidemia.
Progress Note - Cloth Calender
Subjective
Date of Service: September 04, 2024
Feels well, no chest pain
Objective
Labs:
Labs
Hgb 10.1 g/dL (13.0-18.0) L 09/03/24 09:05
Hct 29.5 % (39.0-52.0) L 09/03/24 09:05
Plt Count 158 10^3/uL (130-400) 09/03/24 09:05
Sodium 140 mmol/L (135-145) 09/03/24 09:05
Potassium 3.7 mmol/L (3.5-5.1) 09/03/24 09:05
BUN 22 mg/dl (9-20) H 09/03/24 09:05
Creatinine 1.1 mg/dL (0.7-1.3) 09/03/24 09:05
Glucose 196 mg/dl (70-99) H 09/03/24 09:05
Vital Signs and I&O:
Vital Signs
Temp Pulse Resp BP Pulse Ox
97.6 F 74 18 124/84 98
09/04/24 11:00 09/04/24 11:00 09/04/24 11:00 09/04/24 11:00 09/04/24 11:00
Vital Signs
Temp Pulse Resp BP Pulse Ox
97.6 F 74 18 124/84 98
09/04/24 11:00 09/04/24 11:00 09/04/24 11:00 09/04/24 11:00 09/04/24 11:00
Intake & Output
09/02/24 09/03/24 09/04/24 09/05/24
06:59 06:59 06:59 06:59
Intake Total 1120 / 1120 660 / 660 1140 / 1140
Output Total 650 / 650 1025 / 1025 800 / 800
Balance 470 / 470 -365 / -365 340 / 340
Physical Exam
Physical Exam
GEN: AAOx3
HEENT: MMM
LUNGS: RA
CV: SR on tele
ABD: ND
EXT: Trace ankle edema B/L
NEURO: Gross non-focal
SKIN: No rash
--- NOTE | 2024-09-04 12:02 | PN.CDI ---
CDI
- -
CDI:
Physician Documentation Request
Admit Date: 08/31/24 23:37
Dear Doctor Nadir,
Patient admitted with Right gluteus medius muscle tear with diffuse intramuscular hematoma exacerbated by Eliquis. Also noted to have 'JONAH likely secondary to acute bleeding/meds.... Iron deficiency anemia'
Based on the above, could you please clarify, in your progress note, which of the following is the most likely type of anemia
Acute blood loss anemia on iron deficiency anemia
iron deficiency anemia only
Other
Use of terms such as suspected, likely, concern for, or probable (associated with a specific diagnosis that is being evaluated, monitored, or treated as if it exists) are acceptable and can be coded in the inpatient setting, when documented at the
time of discharge.
Thank you,
Heydi Cazares RN, BSN
CDI Specialist
tiger text
Please use your independent medical judgment in providing your response.
--- NOTE | 2024-09-04 12:05 | PN.CDI ---
CDI
- -
CDI:
Physician Documentation Request
Admit Date: 08/31/24 23:37
Dear Doctor Nadir,
Patient admitted for Right gluteus medius muscle tear with diffuse intramuscular hematoma.
No fractures or dislocations noted.
Orthopedic consult states ' He reports acute onset of pain without any known traumatic injury or fall responsible for onset of symptoms;he is unsure if he may have slightly twisted his right hip awkwardly, reporting that he may have 'felt
something.'....He reports that he is currently doing physical therapy (last session yesterday)......reports that both hips felt like they were 'worked out' after PT yesterday.'
Could you please further clarify the etiology of the Right gluteus medius muscle tear with diffuse intramuscular hematoma
Traumatic
Nontraumatic
Other
Use of terms such as suspected, likely, concern for, or probable (associated with a specific diagnosis that is being evaluated, monitored, or treated as if it exists) are acceptable and can be coded in the inpatient setting, when documented at the
time of discharge.
Thank you,
Heydi Cazares RN, BSN
CDI Specialist
tiger text
Please use your independent medical judgment in providing your response.
--- NOTE | 2024-09-04 12:35 | W.PN.HOSP.TC ---
Addendum entered and electronically signed by Cristin King MD 09/04/24 16:06:
nontraumatic gluteus muscle tear
acute blood loss anemia from intramuscular hematoma
Addendum entered and electronically signed by Cristin King MD 09/04/24 16:01:
I saw and evaluated the patient independently. I reviewed the resident�s note and agree with findings and plan as documented by Dr. Schmitz.
GENERAL: well developed, well nourished, male in no apparent distress
HEENT: NC/AT
HEART: regular rate and rhythm, +S1, +S2
LUNGS : clear to auscultation bilaterally
ABDOM: soft, nontender, nondistended, + bowel sounds
EXT: no cyanosis, clubbing, or edema--right hip/buttock feeling better overall
NEUROLOGIC: grossly intact
Right gluteus medius muscle tear with diffuse intramuscular hematoma exacerbated by Eliquis (had tumor removed from left knee and has been rehabbing from that)(also had left thigh hematoma 11/2023)--Pelvic CT shows right gluteus medius muscle tear
diffuse intramuscular evolving hematoma, no fracture or dislocation--HGB drop for 11.8 to 10.0--apprec vascular/ortho, no plans for surgery of any kind-- CTA without active bleeding--stop IVF and apprec renal--agree with HOLDING eliquis and NOT
discharging on it--pain control
JONAH likely secondary to acute bleeding/meds--stop IVF--apprec renal-- Hold triamterene/hydrochlorothiazide, valsartan, metformin--baseline creat 1.3--admission 1.7, down to 1.1
History of left thigh hematoma--traumatic--in November 2023--also on Eliquis at that time as well
Paroxysmal atrial fibrillation- Hold Eliquis--apprec cards--Watchman might be best but will defer to cards
CAD--noted
Essential hypertension- Continue amlodipine- restart valsartan- Continue doxazosin
Iron deficiency anemia- Continue ferrous gluconate
Hyperlipidemia- Continue statin
Type 2 diabetes- Continue Invokana, Januvia, pioglitazone- restart metformin
Prostate cancer status post robotic prostatectomy
code status--Full code
DVT proph�SCDs
OK for d/c
Original Note:
Today's Communication/Plan
-
Discharge planning to [facility]
Continue PT
Continue to hold Eliquis after discharge until seen by the personal injury law specialist for watchman discussion
Continue all other home medications
Assessment / Plan
Assessment / Plan
Impression
Nontraumatic right gluteus medius muscle tear with diffuse intramuscular hematoma
JONAH
History of left thigh hematoma
Paroxysmal atrial fibrillation
History of CAD
Essential hypertension
Iron deficiency anemia
Hyperlipidemia
Type 2 diabetes
Prostate cancer s/p post robotic prostatectomy
Plan
Nontraumatic right gluteus medius muscle tear with diffuse intramuscular hematoma exacerbated by Eliquis
Pelvis CT shows right gluteus medius muscle tear with intramuscular evolving hematoma. No fracture/dislocation
Had a history of left knee tumor removal and has been in PT
Apprec Vascular and orthopedics surgery
No plans for surgery right now
CTA shows without active bleeding
HOLDING Eliquis at discharge until seen by personal injury law specialist for Watchman discussion
JONAH likely secondary to acute bleeding/meds
Cre 1.1 improved, will resume HCTZ, triamterene ARB
History of left thigh hematoma seen
in November 2023
Was on Eliquis at that time
Paroxysmal atrial fibrillation
Continue to hold Eliquis at discharge
Cardiology on board
Plan outpatient Watchman discussion for stroke prevention
Hx of CAD-- noted
Essential hypertension-
Continue amlodipine-
Resume valsartan-- creat 1.1
Continue doxazosin
Iron deficiency anemia only
Continue ferrous gluconate
Hyperlipidemia
Continue statin
Type 2 diabetes
Continue Invokana, Januvia, pioglitazone
resume metformin
Prostate cancer status post robotic prostatectomy
code status--Full code
DVT proph�SCDs
PT/OT
Anticipated Discharge: Today
Subjective/Interval History
-
Date of Service: September 04, 2024
No overnight events
Objective Data
-
Labs:
Laboratory Results
09/04/24
08:33
WBC Pending
Hgb Pending
Hct Pending
Plt Count Pending
Sodium Pending
Potassium Pending
Chloride Pending
Carbon Dioxide Pending
BUN Pending
Creatinine Pending
Glucose Pending
Calcium Pending
Vital Signs:
Vital Signs
Temp Pulse Resp BP Pulse Ox
97.6 F 74 18 124/84 98
09/04/24 11:00 09/04/24 11:00 09/04/24 11:00 09/04/24 11:00 09/04/24 11:00
I&O
09/03/24 09/04/24 09/05/24
06:59 06:59 06:59
Intake Total 660 / 660 1140 / 1140
Output Total 1025 / 1025 800 / 800
Balance -365 / -365 340 / 340
Review of Systems
-
All other systems: Reviewed and negative
Physical Exam
-
General: No Apparent Distress and Comfortable
HEENT: Normocephalic and Atraumatic
Respiratory: Clear to Auscultation
Cardiac: Regular Rhythm and S1/S2; Negative Murmur or Rub
GI: Soft, Nontender and Nondistended
Musculoskeletal: No Edema
Neuro: AO x 3
Psych: Calm
Data Reviewed
-
Labs: Labs Reviewed by me and Discussed with Physician
--- NOTE | 2024-09-04 12:47 | VNURNOTE ---
Home Health Liaison spoke with patient at bedside to discuss VN nurse/therapy, visits, schedule and homebound status. Patient is agreeable and understands that visits at home will be 2-3 x per week to assess and teach medical management. Reviewed
homebound criteria w/ him. He does not feel that he is at his baseline with strength and stated he did not feel ready to resume outpt PT right away. [facility] care in 1-2 days after
discharge from .
[facility].
--- NOTE | 2024-09-04 15:32 | CM ---
Patient seen at bedside. Patient requested [facility], CM sent TT to [facility] liaison. Patient for transfer via van from [facility]. CM will continue to follow for discharge planning needs.
Plan; home with [facility]
--- NOTE | 2024-09-04 17:11 | W.DCSUMMARY ---
Addendum entered and electronically signed by Cristin King MD 09/05/24 06:59:
Read, reviewed, and agree. See same day progress note for additional details. Time spent coordinating care, DC planning, review of DC plan of care with resident, transition of care, review of records in EMR, med rec, consults, notes, d/w
consultants, nursing, family, and CM = 38 minutes
Original Note:
Discharge Summary
Discharge Data
Date of Admission: 08/31/24
Date of Discharge: 09/04/24
-
Pending Results: No
Hospital Course
Discharging Physician : Dr Reynaldo Schmitz, Dr Cristin King
Disposition : [facility]
Primary care physician : Gerry Holman
Principal Discharge diagnosis :
Nontraumatic right gluteus medius muscle tear with diffuse intramuscular hematoma
JONAH
Chronic Discharge diagnosis :
History of left thigh hematoma
history of left knee tumor removal
Paroxysmal atrial fibrillation
History of CAD
Essential hypertension
Iron deficiency anemia
Hyperlipidemia
Type 2 diabetes
Prostate cancer s/p post robotic prostatectomy
Hospital Course : 79-year-old male with history of left thigh hematoma, presented with nontraumatic right gluteus medius muscle tear with diffuse intramuscular hematoma seen on pelvis CT. he has history of left knee tumor removal for which he has
been having physical therapy. Vascular surgery and orthopedics were consulted, no indication of surgery of any kind, and no active bleeding on CTA. Eliquis was held. Cardiology recommend Watchman for stroke prevention. At discharge patient
is hemodynamically stable, holding Eliquis and not discharging on it. Follow up with cardiology for outpatient evaluation for Watchman. Advise physical therapy and as needed pain management.
Important imaging findings :
08/31/[address]
Right gluteus medius medius muscle tear with diffuse intramuscular evolving hematoma. No fracture or dislocation. No osteolytic or blastic lesion. No periosteal reaction. No bony destruction or erosion. No apparent joint effusion.
4/19 /2025 CT angiography
Hematoma lateral to the right hip measuring approximately 8.4 x 4.8 x 9.8 cm. Intramuscular hematoma extends superiorly with asymmetric expansion and increased attenuation of the right gluteus medius muscle. No CTA evidence for active arterial
contrast extravasation to indicate active bleeding on this exam.
08/31/2024 Hip x-ray
There is no fracture or dislocation, bony destruction, or erosive change. Minor right hip joint space narrowing without significant hypertrophic productive changes. The cortical margins and trabecular pattern of the femur are intact. No fracture.
No osteolytic or blastic lesion.
08/31/24 Femur x-ray
There is no fracture or dislocation, bony destruction, or erosive change. Minor right hip joint space narrowing without significant hypertrophic productive changes.
Procedure findings : none
Discharge Plan
-
Patient Disposition: Assisted Living
Discharge Diagnosis/Procedures: Right gluteus medius muscle tear with diffuse intramuscular hematoma
JONAH secondary to tear
History of left thigh hematoma
Paroxysmal atrial fibrillation
Essential hypertension
History of CAD
Hyperlipidemia
Type 2 diabetes
Prostate cancer s/p post robotic prostatectomy
Iron deficiency anemia
Condition: Good
Diet: Low Cholesterol
Activity: No restrictions
Driving Restrictions: Not until seen by your Dr
Bathing Restrictions: None
Others Tests: -A 14 day heart monitor was ordered by Dr. Rene Patel's office to monitor for burden of Afib. The monitor is being placed before you leave the hospital. The monitor can get wet in the shower, but the shower should not spray
directly onto the monitor and the monitor cannot be submerged in water such as a bath or pool. When you are done with monitoring period please remove monitor and place in postage-paid envelope and mail back to office.
Other Services: VN, PT and OT
Referrals:
Gerry Holman MD [Family Provider] - in less than 1 week
Rene Patel MD [Active] - 10/02/24 2:40 pm (To discuss Watchman device and for hospital followup.)
Additional Discharge Medication Instructions: Hold Eliquis after discharge due to recurrent intramuscular hematomas on oral anticoagulation
Plan outpatient consult for watchman implantation. Plan to arrange a visit with Dr. Rene Patel.
No driving until seen by PCP
Prescriptions:
Continued
pioglitazone 30 MG tablet
30 mg PO DAILY
cholecalciferol (vitamin D3) 1,000 UNITS tablet
1,000 units PO TID
Invokana 100 MG tablet
100 mg PO DAILY
magnesium oxide 400 MG tablet
400 mg PO DAILY
ferrous gluconate 240 MG tablet
324 mg PO TID
Januvia 100 MG tablet
100 mg PO QPM
coQ10 (ubiquinol) 100 mg Capsule
100 mg PO DAILY Qty: 0
atorvastatin 40 mg Tablet
40 mg PO HS
alpha lipoic acid 600 mg Tablet
600 mg PO DAILY
metformin 1,000 MG tablet
1,000 mg PO BID
cyanocobalamin (vitamin B-12) 1,000 mcg Tablet
3,000 mcg PO DAILY
amlodipine 5 mg tablet
5 mg PO BID
therapeutic multivitamin Tablet
1 tab PO DAILY
triamterene-hydrochlorothiazid 37.5-25 mg Tablet
1 tab PO DAILY
doxazosin 2 mg Tablet
2 mg PO HS
valsartan 160 mg Tablet
160 mg PO BID
sennosides [Senna Laxative] 8.6 mg tablet
17.2 mg PO BIDPRN PRN (Reason: constipation)
polyethylene glycol 3350 [HealthyLax] 17 gram powder in packet
17 g PO BIDPRN PRN (Reason: constipation)
acetaminophen [Tylenol Extra Strength] 500 mg tablet
1,000 mg PO TIDPRN PRN (Reason: mild pain)
Discontinued
Eliquis 5 mg Tablet
5 mg PO BID
Discharge Orders:
Discharge Patient (As Directed); Ordered 09/04/24
Ordered By: Reynaldo Schmitz
Discharge Date and Time
Discharge Date/Time: 09/04/24 15:32
Print Language: STATELESS
== END 2024-09-04 15:32 | disposition home or self-care (01) | DRG 683 ==
LOC: 4 WEST ACU 23:37
PROVIDERS: Physician Assistant Medical; Student in an Organized Health Care Education/Training Program; ADMITTING PHYSICIAN Hospitalist; ATTENDING PHYSICIAN Internal Medicine; CONSULT PHYSICIAN Internal Medicine; CONSULT PHYSICIAN Internal Medicine Cardiovascular Disease; CONSULT PHYSICIAN Surgery; EMERGENCY PHYSICIAN Emergency Medicine; FAMILY PHYSICIAN Internal Medicine Geriatric Medicine; OTHER PHYSICIAN Student in an Organized Health Care Education/Training Program
DX: N17.9 Acute kidney failure, unspecified (principal); D62 Acute posthemorrhagic anemia; I48.19 Other persistent atrial fibrillation; D68.32 Hemorrhagic disorder due to extrinsic circulating anticoagulants; M62.18 Other rupture of muscle (nontraumatic), other site; Y99.9 Unspecified external cause status; S30.0XXA Contusion of lower back and pelvis, initial encounter; I25.10 Atherosclerotic heart disease of native coronary artery without angina pectoris; I10 Essential (primary) hypertension; D50.9 Iron deficiency anemia, unspecified; E78.00 Pure hypercholesterolemia, unspecified; E11.9 Type 2 diabetes mellitus without complications; Z85.46 Personal history of malignant neoplasm of prostate; Z87.891 Personal history of nicotine dependence; Z79.01 Long term (current) use of anticoagulants; Z79.84 Long term (current) use of oral hypoglycemic drugs; Z79.899 Other long term (current) drug therapy; Z87.442 Personal history of urinary calculi; K59.00 Constipation, unspecified; J45.909 Unspecified asthma, uncomplicated
CPT/HCPCS: 72191; 72192; 73502; 73552; 80048; 80053; 81003; 81015; 82570; 83735; 84156; 84300; 85014; 85018; 85025; 85027; 85652; 86140; 93005; 96374; 96376; 97162; 97166; 99285; Q9967

== ENCOUNTER → 2024-11-20 12:15 | Outpatient (REF) | payer OTHER, SELFPAY ==
[2024-11-20 12:49] LABS: Hematocrit 35.1 % (39.0-52.0); Hemoglobin 11.5 g/dL (13.0-18.0); Mean Corp Hgb Conc. 32.8 g/dL (33.0-37.0); Mean Corpuscular Volume 93.9 fL (80.0-94.0); Nucleated Red Blood Cells % 0 % (-); Platelet Count 189 10^3/uL (130-400); Red Cell Dist. Width 15.4 % (11.5-14.5)
[2024-11-20 12:54] LABS: Urine Character Clear (Clear)
[2024-11-20 12:59] LABS: ALT (SGPT) 15 U/L (0-50); AST (SGOT) 19 U/L (17-59); Albumin 4.0 g/dl (3.5-5.0); Alkaline Phosphatase 87 U/L (38-126); Blood Urea Nitrogen 32 mg/dl (9-20); Calcium 9.6 mg/dl (8.4-10.2); Carbon Dioxide 26 mmol/L (22-30); Chloride 109 mmol/L (98-107); Glucose 109 mg/dl (70-99); HDL Cholesterol 49 mg/dl; LDL Cholesterol, Calculated 114 mg/dl; Potassium 3.9 mmol/L (3.5-5.1); Sodium 142 mmol/L (135-145); Total Protein 6.3 g/dl (6.3-8.2); Very Low Density Lipoprotein 24 mg/dl (0-30); eGFR 43.29
[2024-11-20 13:13] LABS: Vitamin D, 25-OH*** 50.3 ng/mL (30-80)
[2024-11-20 14:09] LABS: Urine Squamous Cell 0-2 /LPF (Few); Urine White Cell 0-2 /HPF (0-5)
== END ==
LOC: OLABPV 12:15
PROVIDERS: ATTENDING PHYSICIAN Internal Medicine Geriatric Medicine
DX: E11.9 Type 2 diabetes mellitus without complications (principal); I48.0 Paroxysmal atrial fibrillation; N18.31 Chronic kidney disease, stage 3a; I10 Essential (primary) hypertension; M25.551 Pain in right hip; E55.9 Vitamin D deficiency, unspecified; I25.10 Atherosclerotic heart disease of native coronary artery without angina pectoris; N52.9 Male erectile dysfunction, unspecified; Z13.89 Encounter for screening for other disorder; E04.1 Nontoxic single thyroid nodule; D50.0 Iron deficiency anemia secondary to blood loss (chronic)
CPT/HCPCS: 36415; 80053; 80061; 81003; 81015; 82306; 85025

== ENCOUNTER 2024-11-29 09:16 | Day surgery (SDC) | payer OTHER, SELFPAY ==
[2024-11-29 10:18] LABS: Glucose - Point of Care 116 mg/dl (70-99)
== END 2024-11-29 10:58 | disposition home or self-care (01) ==
LOC: CATH 09:16
PROVIDERS: ATTENDING PHYSICIAN Internal Medicine Cardiovascular Disease; FAMILY PHYSICIAN Internal Medicine Geriatric Medicine; OTHER PHYSICIAN Internal Medicine Cardiovascular Disease
DX: I48.19 Other persistent atrial fibrillation (principal); I48.92 Unspecified atrial flutter; I08.3 Combined rheumatic disorders of mitral, aortic and tricuspid valves; R06.09 Other forms of dyspnea; G47.33 Obstructive sleep apnea (adult) (pediatric); I12.9 Hypertensive chronic kidney disease with stage 1 through stage 4 chronic kidney disease, or unspecified chronic kidney disease; E11.22 Type 2 diabetes mellitus with diabetic chronic kidney disease; N18.30 Chronic kidney disease, stage 3 unspecified; Q21.12 Patent foramen ovale; E78.5 Hyperlipidemia, unspecified; Z79.01 Long term (current) use of anticoagulants; Z79.84 Long term (current) use of oral hypoglycemic drugs; Z85.820 Personal history of malignant melanoma of skin
CPT/HCPCS: 93312; 93320; 93325; 82962

== ENCOUNTER 2024-12-05 06:18 | Inpatient (IN) | payer OTHER, SELFPAY ==
[2024-11-23 12:02] VITALS: BMI 25.4
[2024-11-23 12:59] LABS: Hematocrit 36.8 % (39.0-52.0); Hemoglobin 12.4 g/dL (13.0-18.0); Mean Corp Hgb Conc. 33.7 g/dL (33.0-37.0); Mean Corpuscular Volume 91.8 fL (80.0-94.0); Nucleated Red Blood Cells % 0 % (-); Platelet Count 208 10^3/uL (130-400); Red Cell Dist. Width 15.6 % (11.5-14.5)
[2024-11-23 13:11] LABS: INR 1.28; PT 16.3 Sec (11.4-14.6)
[2024-11-23 13:45] LABS: ALT (SGPT) 18 U/L (0-50); AST (SGOT) 21 U/L (17-59); Albumin 4.6 g/dl (3.5-5.0); Alkaline Phosphatase 98 U/L (38-126); Blood Urea Nitrogen 33 mg/dl (9-20); Calcium 9.7 mg/dl (8.4-10.2); Carbon Dioxide 24 mmol/L (22-30); Chloride 107 mmol/L (98-107); Estimated Creatinine Clearance 37 ml/min; Glucose 124 mg/dl (70-99); Potassium 4.2 mmol/L (3.5-5.1); Sodium 141 mmol/L (135-145); Total Protein 7.1 g/dl (6.3-8.2); eGFR 46.77
[2024-12-05] VITALS (19 sets, daily range): BP systolic 107–148; BP diastolic 68–93; BMI 25.2
--- NOTE | 2024-12-05 07:07 | ITS.CL.ABL ---
Lock Tender - Ablation
Ablation
Procedure Report:
ELECTROPHYSIOLOGIC STUDY AND POSSIBLE ABLATION
DATE: 12/06/23
Primary Care Provider: Dr Marky Holman
INDICATION:
Symptomatic Atrial Fibrillation and atrial tachycardia.
Persistent
HISTORY: See H and P.
Symptomatic AF, poorly controlled with attempted medical therapy.
He underwent PVI 04/29/20.
He did well until 2022 when he had recurrence of symptoms and found to have atrial tachycardia. I took him to the electrophysiology laboratory November 18, 2022 where we identified posterior wall left atrial tachycardia. A single RF application to this
area terminated the tachycardia. He additionally underwent left atrial posterior wall ablation/isolation.�
HAS-BLED: 2
Age
Abnormal Renal Function
CHADSVASc = 4
(HTN, Age, DM)
PRESENTING RHYTHM: Atrial flutter, atypical
HISTORY: See H and P.
Symptomatic AF, poorly controlled with attempted medical therapy.
ANTICOAGULATION: Apixaban 5 mg twice daily
'TIME-OUT': called and confirmed.
SEDATION/ANESTHESIA: provided via the anesthesia department using general anesthesia.
PROCEDURE:
Ultrasound Guidance with real-time visualization of needle insertion and vessel patency performed by me for femoral venous Vascular Access.
Under real-time US guidance, the needle was advanced with negative pressure into the vein. The needle was seen entering the vessel lumen with a good return of dark red flow, the syringe was removed, non-pulsatile, dark red blood low was noted and
the wire was passed without difficulty, then the needle was removed. US confirmed the wire was in the vein, not going into an artery,
Images were taken and saved for the patient's permanent record. Imaging findings typical femoral venous anatomy. Direct visualization of needle puncture into the femoral vein was observed and recorded.
A decapolar CS catheter was placed within the CS for mapping and pacing.
The intracardiac ultrasound catheter was positioned in the RA for continuous intracardiac ultrasound imaging.
Heparin bolus and infusion to target ACT at 300 -350 seconds was administered. Transseptal puncture was performed. This entailed advancing a sheath with dilator into the superior vena cava and withdrawing both (monitoring intracardiac ultrasound,
fluoroscopy and tip pressure) with the tip oriented toward the atrial septum. The fossa ovalis was engaged (indicated by sudden displacement of the sheath tip as well as tenting of the fossa seen on intracardiac ultrasound).
The FarapCoupz transseptal system was used. Left atrial catheter position was confirmed by echocardiographic imaging and fluoroscopy followed by RF delivery using the Unocoin system resulting in successful LA access with pressure monitoring
demonstrating LA pressure waveforms (LA mean pressure 8 mm Hg). The sheath was advanced over the dilator and positioned in the left atrium.
The Thermogenics Grid multipolar mapping catheter was initially positioned through the transseptal sheath for high density mapping.
Geometry and voltage mapping was performed using the Thermogenics multipolar grid catheter. Ensite-X was utilized for three-dimensional electroanatomical mapping.
A 3-D map was created using Ensite-X in Voxel mode. A 3-D reconstructed CT image was compared to the 3-D Navex map to assist in anatomic evaluation, mapping and ablation.
The Farapulse PFA catheter and system was used for cardiac ablation. Catheter positioning was guided and confirmed using both I.C.E. and fluoroscopy.
Ablation strategy included PVI as well as mapping for extra PV contributors to atrial fibrillation which would also be targeted if present.
High density electroanatomical three-dimensional mapping demonstrated LSPV, LIPV, RSPV, RIPV.
There is reconnection just outside the antrum of the right superior pulmonary vein anteriorly otherwise the pulmonary veins are electrically isolated.
Mapping also defines counterclockwise mitral annular flutter defined by both activation mapping as well as multipoint entrainment mapping. Cycle length of tachycardia is 350 ms.
Ablation was performed using the femoral pulse PFA catheter in the flower position after pressures were used to increase the systolic blood pressure above 150 mmHg and 200 mcg of nitroglycerin intravenously were administered. Then ablation was
performed from the left inferior pulmonary vein down to the mitral valve annulus. During ablation tachycardia slowed and then terminated. At no point where there any ST segment elevations observed or hemodynamic compromise encountered. Ablation
line was completed from the inferior pulmonary vein on the left down to the mitral valve annulus. Then activation mapping as well as differential pacing defined bidirectional block at the ablation line.
Next attention was turned to isolating the pulmonary veins. This required several applications outside the right superior pulmonary vein anteriorly.
Additionally mapping demonstrated additional areas likely to be extra PV contributors to atrial fibrillation. These areas demonstrated patchy low voltage as well as complex fractionated electrograms. These areas can be sites for the formation of
rotors which can drive and maintain atrial fibrillation. These areas are known to be significant contributors to initiation and perpetuation of atrial fibrillation.
Additional energy applications/additional ablation sets targeted extra PV contributors to atrial fibrillation.
Targets for additional PFA ablation included:
LA posterior wall targeted with pulsed electric field energy isolating the posterior wall of the left atrium
After ablation of the posterior wall, additional targets were addressed
LA inferior floor floor line
These areas were ablated using pulsed electric field energy eliminating the extra PV contributors to atrial fibrillation.
Post ablation mapping finds entrance and exit block at each of the pulmonary veins (LSPV, LIPV, RSPV, RIPV), the LA posterior wall and at the additional lines at Inferior/floor of the LA rendering the sites no longer able to contribute to atrial
fibrillation.
Programmed electrostimulation including burst atrial pacing as well the delivery of decremental extrastimuli down to atrial effective refractory period and no sustained arrhythmias could be induced.
I.C.E. :
Pre-Ablation Post-Ablation
LVEF: 55 % 55 %
WMA: none none
Pericardial effusion: small small
*No, pericardial effusion has been previously observed and observed as recently as transesophageal echocardiogram from yesterday. No hemodynamic compromise.
COMPLICATIONS:
None
SUMMARY:
- Mapping and ablation to isolate the PVs resulting in electrical isolation of the pulmonary veins
- Additional AF ablation sets X 2 after PVI 2 (LA posterior wall, Inf/floor of the LA posterior wall) resulting in elimination of the targeted extra PV contributors to atrial fibrillation.
- Mapping and ablation of second tachycardia (left atrial mitral annular tachycardia/flutter)
- 3-D Electroanatomical Mapping
- Intracardiac Ultrasound
- Ultrasound guidance for vascular access
Post ablation, I discussed today's findings and results with the patient's daughter, Ying.
RECOMMENDATIONS:
- Observe in monitored bed.
- Maintain oral anticoagulation.
- Office visit with [facility] is scheduled for February 27, 2025
Copy to:
Dr Marky Holman
--- NOTE | 2024-12-05 07:08 | WATCHMAN.MD ---
Watchman Implant
-
WATCHMAN LEFT ATRIAL APPENDAGE CLOSURE DEVICE REPORT
DATE: 12/06/23
Primary Care Provider: Dr Marky Holman
INDICATION:
Symptomatic Atrial Fibrillation and atrial tachycardia.
Persistent
HISTORY: See H and P.
He has had recurrent serious bleeding on anticoagulation. It is possible that statin use has played a role in his muscle ruptures. He remains at increased risk of major bleeding complications and therefore he is referred for consideration for
watchman implantation to reduce his long-term exposure to oral anticoagulation.
He is experienced recurrent intramuscular gluteal hematomas first noted in November 2023 where he had a large intramuscular hematoma at the left lateral hip and anterior lateral upper left thigh. He then presented in August 2024 with recurrent
intramuscular hematoma.
HAS-BLED: 2
Age
Abnormal Renal Function
CHADSVASc = 4
(HTN, Age, DM)
Watchman Team:
DOMINIC: Dr Mary Jo M.D.
Transseptal asphalt machine operator: Dr Rene Patel M.D.
Implanter: Dr Rene Patel M.D.
Procedure: Watchman left atrial appendage closure.
A DOMINIC probe was placed.
Transseptal puncture was was maintained from the left atrial ablation performed earlier today.
The standard double curve watchman sheath was substituted for the Faradrive ablation sheath.
A 5 Gibraltarian curved pigtail was then substituted for the guidewire through the watchman sheath to the ostium of the left atrial appendage. The 5 Gibraltarian pigtail was advanced into the left atrial appendage and angiography was performed. This allowed
additional measurements assessing left atrial appendage ostium size and LUIS morphology.
Initial measurements suggested an ostial size of 26 mm's suggesting delivery of a 31 mm device would be adequate.
The pigtail catheter was removed from the access sheath. A 31 mm Watchman device was flushed and then placed into the watchman access sheath and advanced through the sheath. The Watchman was clamped into the sheath. The device was deployed into
the left atrial appendage. Several attempts at placing this device resulted in a significant shoulder at the mitral valve. It was then decided to downsize to a 27 mm device. Substitution of the 27 mm device resulted in successful delivery.
The PASS criteria were met. The stability tug test was performed and passed. Angiography and transesophageal echocardiogram revealed no leaks nor jets. The position was confirmed on angiography and transesophageal echo and there were no
significant shoulders. Compression ranges from 16% to 20 %.
After meeting the PASS release criteria the device was released into the left atrial appendage.
The watchman access sheath was then removed through the transseptal into the IVC. A figure 8 suture closure was performed at the site of the femoral venous puncture and the sheath as it was removed.
Impression:
- Successful Deployment 27 mm WATCHMAN left atrial appendage closure device by Dr Rene Patel.
- Ultrasound guidance for vascular access
Recommended anticoagulation strategy for this specific patient is:
Plan would be to maintain Eliquis 5 mg twice daily until the 3-month post watchman transesophageal echo and if the echocardiogram shows no significant leaks and no device related thrombus anticoagulation can then be stopped in favor of aspirin 81 mg
daily
Transesophageal echocardiogram at 3 months post procedure will be used to assess for any device related thrombus, assess for any leaks, and aid in the decision making regarding altering anticoagulation/antiplatelet recommendations.
At post procedure DOMINIC leaks > 5mm are significant and require chronic full anticoagulation or consideration for leak closure.
Zeenat-device leaks between 3 and 5 mm may also carry an increased risk. These patients will need individualized risk assessment and discussion with Watchman team.
Leaks < 3 mm are generally considered non-significant.
With leak of any size suggestion is to check DOMINIC 12 mo out from implant.
While the overall risk of device related infection for Watchman device is very low, we recommend SBE prophylaxis with amoxicillin for the first 6 months after device implantation until the device is more completely endothelialized. After the first
6 months, the risk of infection associated with a device is further reduced and routine antibiotic prophylaxis is not mandatory but can be decided on an individual case basis.
Patient with cc:
Dr Marky Holman
[2024-12-05 07:13] LABS: Glucose - Point of Care 128 mg/dl (70-99)
[2024-12-05 08:25] LABS: ACT-LR - POC 279 Seconds (116-155)
[2024-12-05 08:48] LABS: ACT-LR - POC 342 Seconds (116-155)
[2024-12-05 09:11] LABS: ACT-LR - POC 335 Seconds (116-155)
[2024-12-05 09:38] LABS: ACT-LR - POC 351 Seconds (116-155)
[2024-12-05 09:44] LABS: Glucose - Point of Care 150 mg/dl (70-99)
--- NOTE | 2024-12-05 11:28 | PTCARENOTE ---
Received the patient from the [facility] in a stretcher. The patient is aaox3, vitals signs are stable. 96% on 4L. NSR with a 1st degree AVB is noted on the monitor. His right groin figure 8 dressing is c/d/i. A right pedal pulse is noted. I
instructed him on his activity restrictions and expected oob time. His call [place] is within reach .
[2024-12-05] MEDS: ANESTHETIC LOZENGE 1 LOZENGE PO (11:57)
[2024-12-05 14:47] LABS: Glucose - Point of Care 169 mg/dl (70-99)
[2024-12-05] MEDS: NOVOLOG FLEXPEN-LOW RESISTANCE SC (14:47)
--- NOTE | 2024-12-05 16:13 | CM ---
Chart reviewed. Patient is independent of ADLS, lives with his in [place] at [facility], 1st floor, 0 MILES, 0 DME. Plan is for the patient to return home. CM to follow
[2024-12-05 17:34] LABS: Glucose - Point of Care 260 mg/dl (70-99)
[2024-12-05] MEDS: JANUVIA 100 MG PO (18:21)
[2024-12-05] MEDS: NOVOLOG FLEXPEN-LOW RESISTANCE 3 UNITS SC (18:31)
[2024-12-05] MEDS: NORVASC 5 MG PO (20:03)
[2024-12-05] MEDS: ELIQUIS 5 MG PO (20:03)
[2024-12-05] MEDS: DIOVAN 160 MG PO (20:04)
[2024-12-05 22:14] LABS: Glucose - Point of Care 267 mg/dl (70-99)
[2024-12-05] MEDS: CARDURA 2 MG PO (22:29)
--- NOTE | 2024-12-05 23:52 | PTCARENOTE ---
Patient received at change of shift out of bed to the chair. Right groin site with some sanguinous drainage noted, surrounding area soft to palpation, drainage marked, pedal pulse palpable. Patient reports some groin tenderness but is otherwise
feeling okay. Sinus rhythm on telemetry. Oxygen saturation 94-97% on room air. Plan of care discussed. Call [place] within reach. Care ongoing.
[2024-12-06 04:06] VITALS: BP 131/93
[2024-12-06 05:03] LABS: Hematocrit 30.1 % (39.0-52.0); Hemoglobin 10.2 g/dL (13.0-18.0); Mean Corp Hgb Conc. 33.9 g/dL (33.0-37.0); Mean Corpuscular Volume 91.8 fL (80.0-94.0); Platelet Count 181 10^3/uL (130-400); Red Cell Dist. Width 15.6 % (11.5-14.5)
[2024-12-06 05:13] LABS: Blood Urea Nitrogen 39 mg/dl (9-20); Calcium 8.7 mg/dl (8.4-10.2); Carbon Dioxide 24 mmol/L (22-30); Chloride 110 mmol/L (98-107); Estimated Creatinine Clearance 43 ml/min; Glucose 140 mg/dl (70-99); Magnesium 2.0 mg/dl (1.6-2.3); Potassium 4.1 mmol/L (3.5-5.1); Sodium 139 mmol/L (135-145); eGFR 55.53
[2024-12-06 06:40] VITALS: BP 126/92
--- NOTE | 2024-12-06 06:57 | W.PN.CARDCBS ---
Today's Communication / Plan
-
Home today
Impression / Plan
-
Impression:
Status post concomitant watchman and PVI on December 05, 2024
Elevated stroke risk
Elevated bleeding risk
Hypertension
Diabetes
Age greater than 75
Recommendations:
Stable for discharge
As per primary whiskey proof reader no 3 months of oral anticoagulation until 3-month DOMINIC
Discharge orders are set
Continue oral anticoagulation until DOMINIC
I took time to answer all patient's questions and concerns
Progress Note - Engine Testing Supervisor
Subjective
Date of Service: December 06, 2024
Feels well
Objective
Labs:
12/06/24 04:12
12/06/24 04:12
Labs
Hgb 10.2 g/dL (13.0-18.0) L 12/06/24 04:12
Hct 30.1 % (39.0-52.0) L 12/06/24 04:12
Plt Count 181 10^3/uL (130-400) 12/06/24 04:12
PT 16.3 Sec (11.4-14.6) H 11/23/24 12:22
INR 1.28 11/23/24 12:22
Sodium 139 mmol/L (135-145) 12/06/24 04:12
Potassium 4.1 mmol/L (3.5-5.1) 12/06/24 04:12
BUN 39 mg/dl (9-20) H 12/06/24 04:12
Creatinine 1.3 mg/dL (0.7-1.3) 12/06/24 04:12
Glucose 140 mg/dl (70-99) H 12/06/24 04:12
Vital Signs and I&O:
Vital Signs
Temp Pulse Resp BP Pulse Ox
97.9 F 92 14 126/92 93
12/06/24 06:40 12/06/24 06:40 12/06/24 06:40 12/06/24 06:40 12/06/24 06:40
Vital Signs
Temp Pulse Resp BP Pulse Ox
97.9 F 92 14 126/92 93
12/06/24 06:40 12/06/24 06:40 12/06/24 06:40 12/06/24 06:40 12/06/24 06:40
Intake & Output
12/03/24 12/04/24 12/05/24 12/06/24
06:59 06:59 06:59 06:59
Intake Total 1350 / 1350
Output Total 400 / 400
Balance 950 / 950
Physical Exam
Physical Exam
����Physical Exam
���������������������General:��no apparent distress, not acutely ill
���������������������������Neck:��supple. no meningeal signs. normal psoterior pharynx
������������������������
���������������������������Heart:��s1/s2 regular rate and rhythm, no murmur. equal radial pulses.
��������������������������Lungs: ��no acute respiratory distress. clear bilaterally
����������������������Abdomen:�normal bowel sounds. not tender. no CVAT
��������������������������Neuro:��alert and oriented. no focal neurological deficits
������������������������������Skin: ��no rash
�����������������������Psychiatric:�well kept. interactive and cooperative
�����������������������Extremities:��no edema. no calf tenderness. negative homans. good distal pulses
��
�
[2024-12-06 07:12] VITALS: BP 133/88
[2024-12-06 08:07] LABS: Glucose - Point of Care 127 mg/dl (70-99)
[2024-12-06] MEDS: NOVOLOG FLEXPEN-LOW RESISTANCE SC (08:30)
[2024-12-06] MEDS: DIOVAN 160 MG PO (08:31)
[2024-12-06] MEDS: DYAZIDE 1 CAPSULE PO (08:31)
[2024-12-06] MEDS: ACTOS 30 MG PO (08:31)
[2024-12-06] MEDS: FARXIGA 10 MG PO (08:31)
[2024-12-06] MEDS: NORVASC 5 MG PO (08:31)
[2024-12-06] MEDS: ELIQUIS 5 MG PO (08:31)
[2024-12-06 08:50] LABS: Glycohemoglobin (HgbA1c) 6.1 % (4.0-5.6)
--- NOTE | 2024-12-06 08:54 | W.DS.TRANS ---
DC Summary - Brine Tank Tender
-
Discharge Instructions:
Discharge Diagnosis/Procedures Atrial fibrillation post ablation and Watchman
implant
Diet Low Cholesterol,Diabetic, Carb Controlled
Driving Restrictions No driving for 24 hours
Others Tests 3 month follow up DOMINIC: 03/07/2025. You will
receive a call from the hospital to give you a
time of arrival and review instructions
Instructions:
Stand-Alone Forms: DC Instructions- Cath/EP Lab
Changes to Home Medications: No
Discharge Medications:
DC Medications w/original date entered in [employer]
canagliflozin 100 mg tablet (Invokana) 100 mg PO DAILY Diabetes 05/10/16
cholecalciferol (vitamin D3) 25 mcg (1,000 unit) tablet 1,000 units PO TID Supplement 05/10/16
pioglitazone 30 mg tablet 30 mg PO DAILY Diabetes 05/10/16
magnesium oxide 400 mg (241.3 mg magnesium) tablet 400 mg PO DAILY Constipation 01/11/18
sitagliptin phosphate 100 mg tablet (Januvia) 100 mg PO QPM Diabetes 11/22/19
coQ10 (ubiquinol) 100 mg capsule 100 mg PO DAILY Supplement ##0 11/03/22
alpha lipoic acid 600 mg tablet 600 mg PO DAILY Supplement 11/18/22
metformin 1,000 mg tablet 1,000 mg PO BID Diabetes 11/18/22
Held on 12/05/24. Instructions: Resume on 12/07/24.
cyanocobalamin (vitamin B-12) 1,000 mcg tablet 3,000 mcg PO DAILY Supplement 11/20/23
amlodipine 5 mg tablet 5 mg PO BID Blood Pressure 11/29/23
acetaminophen 500 mg tablet (Tylenol Extra Strength) 1,000 mg PO TIDPRN PRN mild pain 08/31/24
doxazosin 2 mg tablet 2 mg PO HS Blood Pressure 08/31/24
polyethylene glycol 3350 17 gram oral powder packet (HealthyLax) 17 g PO BIDPRN PRN constipation 08/31/24
sennosides 8.6 mg tablet (Senna Laxative) 17.2 mg PO BIDPRN PRN constipation 08/31/24
therapeutic multivitamin 1 tab PO DAILY Supplement 08/31/24
triamterene 37.5 mg-hydrochlorothiazide 25 mg tablet 1 tab PO DAILY Blood Pressure 08/31/24
valsartan 160 mg tablet 160 mg PO BID Blood Pressure 08/31/24
apixaban 5 mg tablet (Eliquis) 5 mg PO BID 11/21/24
Home Medication Changes
Pending Results: No
--- NOTE | 2024-12-06 11:03 | PTCARENOTE ---
Pt denies any discomfort, right femoral vein site intact, wound redressed. Pt seen by Dr. Candelario. Telemetry and IV device removed. Discharge instructions reviewed with pt regarding wound care, activity and driving restrictions, medications and
their possible side effects, reporting cares and concerns and follow up appt's. Very good understanding verbalized. Pt escorted out via wheelchair and pt discharged to home.
[2024-12-06 14:52] LABS: Hepatitis C Antibody Negative (Negative)
== END 2024-12-06 10:45 | disposition home or self-care (01) | DRG 317 ==
LOC: IVU 06:18
PROVIDERS: Internal Medicine Cardiovascular Disease; Nurse Practitioner Adult Health; ADMITTING PHYSICIAN Internal Medicine Cardiovascular Disease; FAMILY PHYSICIAN Internal Medicine Geriatric Medicine
PROC: 4A0234Z Measurement of Cardiac Electrical Activity, Percutaneous Approach (ICD-10-PCS; 2024-12-05)
PROC: 02583ZZ Destruction of Conduction Mechanism, Percutaneous Approach (ICD-10-PCS; 2024-12-05)
PROC: 02L73DK Occlusion of Left Atrial Appendage with Intraluminal Device, Percutaneous Approach (ICD-10-PCS; 2024-12-05)
PROC: 02K83ZZ Map Conduction Mechanism, Percutaneous Approach (ICD-10-PCS; 2024-12-05)
PROC: B24BZZ4 Ultrasonography of Heart with Aorta, Transesophageal (ICD-10-PCS; 2024-12-05)
PROC: 4A023FZ Measurement of Cardiac Rhythm, Percutaneous Approach (ICD-10-PCS; 2024-12-05)
DX: I48.19 Other persistent atrial fibrillation (principal); N18.30 Chronic kidney disease, stage 3 unspecified; I12.9 Hypertensive chronic kidney disease with stage 1 through stage 4 chronic kidney disease, or unspecified chronic kidney disease; E78.5 Hyperlipidemia, unspecified; E11.22 Type 2 diabetes mellitus with diabetic chronic kidney disease; I48.4 Atypical atrial flutter; E55.9 Vitamin D deficiency, unspecified; I47.19 Other supraventricular tachycardia; G47.33 Obstructive sleep apnea (adult) (pediatric); D63.1 Anemia in chronic kidney disease; I44.0 Atrioventricular block, first degree; I45.10 Unspecified right bundle-branch block; Z85.46 Personal history of malignant neoplasm of prostate; Z87.891 Personal history of nicotine dependence; Z85.820 Personal history of malignant melanoma of skin; Z79.84 Long term (current) use of oral hypoglycemic drugs; Z79.01 Long term (current) use of anticoagulants; Z87.19 Personal history of other diseases of the digestive system
CPT/HCPCS: 33340; 36415; 80048; 80053; 82962; 83036; 83735; 85025; 85027; 85347; 85610; 86803; 86850; 86900; 86901; 87070; 93005; 93355; 93655; 93656; 93657; C1730; C1732; C1733; C1766; C1769; C1892; C1894

== ENCOUNTER 2025-01-10 12:06 | Outpatient (RCR) | payer OTHER, SELFPAY | END 2025-01-10 23:59 | disposition home or self-care (01) | LOC: RPT 12:06 | PROVIDERS: ATTENDING PHYSICIAN Internal Medicine Geriatric Medicine | DX: R53.1 Weakness (principal); R26.89 Other abnormalities of gait and mobility; Z73.6 Limitation of activities due to disability; M25.551 Pain in right hip | CPT/HCPCS: 97110; 97112; 97162; 97530 ==

== ENCOUNTER → 2025-01-23 10:26 | Outpatient (REF) | payer OTHER, SELFPAY | LOC: OLABPV 10:26 | PROVIDERS: ATTENDING PHYSICIAN Internal Medicine Geriatric Medicine | DX: E11.9 Type 2 diabetes mellitus without complications (principal); I48.0 Paroxysmal atrial fibrillation; N18.31 Chronic kidney disease, stage 3a; I10 Essential (primary) hypertension; M25.551 Pain in right hip; E55.9 Vitamin D deficiency, unspecified; G47.33 Obstructive sleep apnea (adult) (pediatric); I25.10 Atherosclerotic heart disease of native coronary artery without angina pectoris; N52.9 Male erectile dysfunction, unspecified; E04.1 Nontoxic single thyroid nodule; R26.9 Unspecified abnormalities of gait and mobility; Z13.89 Encounter for screening for other disorder | CPT/HCPCS: 36415; 82088; 83835; 84244 ==

== ENCOUNTER → 2025-02-05 15:39 | Outpatient (REF) | payer OTHER, SELFPAY | LOC: RAD 15:39 | PROVIDERS: ATTENDING PHYSICIAN Internal Medicine Geriatric Medicine | DX: M79.89 Other specified soft tissue disorders (principal); E11.9 Type 2 diabetes mellitus without complications; I48.0 Paroxysmal atrial fibrillation; N18.31 Chronic kidney disease, stage 3a; I10 Essential (primary) hypertension; M25.551 Pain in right hip; E55.9 Vitamin D deficiency, unspecified; G47.33 Obstructive sleep apnea (adult) (pediatric); I25.10 Atherosclerotic heart disease of native coronary artery without angina pectoris; N52.9 Male erectile dysfunction, unspecified; E04.1 Nontoxic single thyroid nodule; R26.9 Unspecified abnormalities of gait and mobility; Z13.89 Encounter for screening for other disorder; R06.09 Other forms of dyspnea; R60.0 Localized edema | CPT/HCPCS: 71046; 93971 ==

== ENCOUNTER → 2025-02-06 10:53 | Outpatient (REF) | payer OTHER, SELFPAY ==
[2025-02-06 11:11] LABS: Hematocrit 35.7 % (39.0-52.0); Hemoglobin 11.3 g/dL (13.0-18.0); Mean Corp Hgb Conc. 31.7 g/dL (33.0-37.0); Mean Corpuscular Volume 93.7 fL (80.0-94.0); Nucleated Red Blood Cells % 0 % (-); Platelet Count 207 10^3/uL (130-400); Red Cell Dist. Width 14.2 % (11.5-14.5)
[2025-02-06 11:15] LABS: Urine Character Clear (Clear)
[2025-02-06 11:24] LABS: ALT (SGPT) 21 U/L (0-50); AST (SGOT) 22 U/L (17-59); Albumin 3.7 g/dl (3.5-5.0); Alkaline Phosphatase 82 U/L (38-126); Blood Urea Nitrogen 25 mg/dl (9-20); Calcium 9.3 mg/dl (8.4-10.2); Carbon Dioxide 26 mmol/L (22-30); Chloride 109 mmol/L (98-107); Glucose 106 mg/dl (70-99); HDL Cholesterol 55 mg/dl; LDL Cholesterol, Calculated 122 mg/dl; Potassium 4.0 mmol/L (3.5-5.1); Sodium 140 mmol/L (135-145); Total Protein 5.9 g/dl (6.3-8.2); Very Low Density Lipoprotein 25 mg/dl (0-30); eGFR 46.77
[2025-02-06 11:42] LABS: Vitamin D, 25-OH*** 41.1 ng/mL (30-80)
[2025-02-06 12:20] LABS: Urine White Cell 0-2 /HPF (0-5); Urine White Cell Cast 0-2 /LPF
== END ==
LOC: OLABPV 10:53
PROVIDERS: ATTENDING PHYSICIAN Internal Medicine Geriatric Medicine
DX: I10 Essential (primary) hypertension (principal); E11.9 Type 2 diabetes mellitus without complications; I48.0 Paroxysmal atrial fibrillation; N18.31 Chronic kidney disease, stage 3a; M25.551 Pain in right hip; E55.9 Vitamin D deficiency, unspecified; G47.33 Obstructive sleep apnea (adult) (pediatric); I25.10 Atherosclerotic heart disease of native coronary artery without angina pectoris; N52.9 Male erectile dysfunction, unspecified; E04.1 Nontoxic single thyroid nodule; R26.9 Unspecified abnormalities of gait and mobility; Z13.89 Encounter for screening for other disorder; R06.09 Other forms of dyspnea; M79.89 Other specified soft tissue disorders; R60.0 Localized edema
CPT/HCPCS: 36415; 80053; 80061; 81003; 81015; 82306; 83880; 85025

== ENCOUNTER 2025-02-06 11:11 | Outpatient (RCR) | payer OTHER, SELFPAY | END 2025-02-06 23:59 | disposition home or self-care (01) | LOC: RPT 11:11 | PROVIDERS: ATTENDING PHYSICIAN Internal Medicine Geriatric Medicine | DX: R53.1 Weakness (principal); R26.89 Other abnormalities of gait and mobility; Z73.6 Limitation of activities due to disability; M25.551 Pain in right hip | CPT/HCPCS: 97110; 97112; 97530 ==

== ENCOUNTER → 2025-02-14 14:34 | Outpatient (REF) | payer OTHER, SELFPAY | LOC: RAD 14:34 | PROVIDERS: ATTENDING PHYSICIAN Internal Medicine Geriatric Medicine | DX: E11.9 Type 2 diabetes mellitus without complications (principal); I48.0 Paroxysmal atrial fibrillation; N18.31 Chronic kidney disease, stage 3a; I10 Essential (primary) hypertension; M25.551 Pain in right hip; E55.9 Vitamin D deficiency, unspecified; G47.33 Obstructive sleep apnea (adult) (pediatric); I25.10 Atherosclerotic heart disease of native coronary artery without angina pectoris; N52.9 Male erectile dysfunction, unspecified; E04.1 Nontoxic single thyroid nodule; R26.9 Unspecified abnormalities of gait and mobility; Z13.89 Encounter for screening for other disorder | CPT/HCPCS: 93975 ==

== ENCOUNTER → 2025-02-28 06:00 | Outpatient (REF) | payer OTHER, SELFPAY ==
[2025-03-01 14:22] LABS: Urine Character Clear (Clear)
== END ==
LOC: OLABPV 06:00
PROVIDERS: ATTENDING PHYSICIAN Specialist
DX: R80.1 Persistent proteinuria, unspecified (principal)
CPT/HCPCS: 81003; 81015; 87077; 87086; 87147

== ENCOUNTER → 2025-03-01 11:28 | Outpatient (REF) | payer OTHER, SELFPAY | LOC: OLABPV 11:28 | PROVIDERS: ATTENDING PHYSICIAN Specialist | DX: I1A.0 Resistant hypertension (principal); R80.1 Persistent proteinuria, unspecified; R06.09 Other forms of dyspnea | CPT/HCPCS: 83880; 84443 ==

== ENCOUNTER → 2025-03-05 11:14 | Outpatient (REF) | payer OTHER, SELFPAY ==
[2025-03-05 12:47] LABS: Glycohemoglobin (HgbA1c) 5.8 % (4.0-5.6)
[2025-03-05 12:49] LABS: ALT (SGPT) 22 U/L (0-50); AST (SGOT) 21 U/L (17-59); Albumin 3.5 g/dl (3.5-5.0); Alkaline Phosphatase 94 U/L (38-126); Blood Urea Nitrogen 33 mg/dl (9-20); Calcium 9.2 mg/dl (8.4-10.2); Carbon Dioxide 28 mmol/L (22-30); Chloride 106 mmol/L (98-107); Glucose 98 mg/dl (70-99); HDL Cholesterol 51 mg/dl; LDL Cholesterol, Calculated 131 mg/dl; Potassium 3.6 mmol/L (3.5-5.1); Sodium 137 mmol/L (135-145); Total Protein 5.9 g/dl (6.3-8.2); Very Low Density Lipoprotein 30 mg/dl (0-30); eGFR 46.77
[2025-03-05 12:51] LABS: Microalb - Urine Creatinine 58.300 mg/dl
[2025-03-05 13:15] LABS: Hepatitis B Surface Antigen Negative (Negative)
[2025-03-05 13:24] LABS: Microalbumin, Random Urine > 57.0 mg/dl (0.6-1.7)
[2025-03-05 13:33] LABS: Hepatitis C Antibody Negative (Negative)
[2025-03-07 20:11] LABS: 24 Hour Urine Total Volume Random mL; Urine Collection Length Random hr
[2025-03-08 03:47] LABS: ANA, IgG Reflex to HEp-2 None Detected (None Detected)
== END ==
LOC: OLABPV 11:14
PROVIDERS: ATTENDING PHYSICIAN Specialist; REFERRING PHYSICIAN Internal Medicine Endocrinology, Diabetes & Metabolism
DX: R31.29 Other microscopic hematuria (principal); R80.1 Persistent proteinuria, unspecified; E11.40 Type 2 diabetes mellitus with diabetic neuropathy, unspecified; E78.5 Hyperlipidemia, unspecified
CPT/HCPCS: 36415; 80053; 80061; 82043; 82570; 82784; 83036; 83516; 83520; 84155; 84156; 84165; 86038; 86160; 86335; 86704; 86706; 86803; 87340

== ENCOUNTER 2025-03-07 09:25 | Day surgery (SDC) | payer OTHER, SELFPAY ==
[2025-03-07 09:46] VITALS: BMI 24.4
[2025-03-07 10:14] LABS: Glucose - Point of Care 103 mg/dl (70-99)
== END 2025-03-07 11:11 | disposition home or self-care (01) ==
LOC: CATH 09:25
PROVIDERS: ATTENDING PHYSICIAN Internal Medicine Cardiovascular Disease; FAMILY PHYSICIAN Internal Medicine Geriatric Medicine; OTHER PHYSICIAN Internal Medicine Cardiovascular Disease
DX: I08.3 Combined rheumatic disorders of mitral, aortic and tricuspid valves (principal); I08.8 Other rheumatic multiple valve diseases; I70.0 Atherosclerosis of aorta; I31.39 Other pericardial effusion (noninflammatory); Q21.12 Patent foramen ovale
CPT/HCPCS: 93312; 93320; 93325; 82962

== ENCOUNTER → 2025-03-27 07:56 | Outpatient (REF) | payer OTHER, SELFPAY | LOC: HWRCS 07:56 | PROVIDERS: ATTENDING PHYSICIAN Physician Assistant Medical; FAMILY PHYSICIAN Internal Medicine Geriatric Medicine | DX: R06.09 Other forms of dyspnea (principal) | CPT/HCPCS: 78452; 93017; A9500; J2785 ==

== ENCOUNTER → 2025-05-07 10:52 | Outpatient (REF) | payer OTHER, SELFPAY ==
[2025-05-07 11:49] LABS: Hematocrit 34.2 % (39.0-52.0); Hemoglobin 11.4 g/dL (13.0-18.0); Mean Corp Hgb Conc. 33.3 g/dL (33.0-37.0); Mean Corpuscular Volume 90.7 fL (80.0-94.0); Nucleated Red Blood Cells % 0 % (-); Platelet Count 214 10^3/uL (130-400); Red Cell Dist. Width 14.7 % (11.5-14.5)
[2025-05-07 12:03] LABS: ALT (SGPT) 17 U/L (0-50); AST (SGOT) 19 U/L (17-59); Alkaline Phosphatase 89 U/L (38-126); Blood Urea Nitrogen 39 mg/dl (9-20); Calcium 9.6 mg/dl (8.4-10.2); Chloride 104 mmol/L (98-107); Glucose 89 mg/dl (70-99); Potassium 4.7 mmol/L (3.5-5.1); Sodium 138 mmol/L (135-145)
[2025-05-07 12:11] LABS: Albumin 3.4 g/dl (3.5-5.0); Carbon Dioxide 28 mmol/L (22-30); Total Protein 5.7 g/dl (6.3-8.2); eGFR 37.58
== END ==
LOC: OLABPV 10:52
PROVIDERS: ATTENDING PHYSICIAN Specialist
DX: R80.9 Proteinuria, unspecified (principal)
CPT/HCPCS: 36415; 80053; 82570; 84100; 84156; 85025